=== PATIENT | male | born 1965 ===

== ENCOUNTER 2020-09-22 09:35 | Outpatient (REF) | payer MEDICAID, SELFPAY | END 2020-09-22 09:36 | disposition home or self-care (01) | LOC: HO.LAB 09:35 | PROVIDERS: PCP Nurse Practitioner Family; Visit Provider Internal Medicine | DX: Z20.822 Contact with and (suspected) exposure to COVID-19 (principal) | CPT/HCPCS: 36415; C9803; U0003 ==

== ENCOUNTER 2020-09-27 13:05 | Emergency (ER) | payer MEDICAID, SELFPAY ==
[2020-09-27] VITALS (7 sets, daily range): BP systolic 111–145; BP diastolic 51–89; PULSE 71–83; RESP 14–18; TEMP 36.7–36.8; O2SAT 96–97; BMI 47.9
--- NOTE | 2020-09-27 13:24 | ECG_ITS ---
Test Reason : CP Blood Pressure : / mmHG Vent. Rate : 080 BPM Atrial Rate : 080 BPM P-R Int : 198 ms QRS Dur : 088 ms QT Int : 388 ms P-R-T Axes : 040 034 047 degrees QTc Int : 447 ms Normal sinus rhythm Normal EKG No significant changes when compared with the previous EKG of 03 december 2018 Referred By: Gemma Ramirez Electronically Signed By:DRAKE ALANIS
--- NOTE | 2020-09-27 13:25 | ED_ITS ---
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 Saturday negative COVID-19 swab. 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 Related Data Allergies Allergy/AdvReac Type Severity Reaction Status Date / Time No Known Allergies Allergy Unverified 05/26/20 15:59 [No Known Allergies*] [facility] Past Medical History Attestation statement: The following information was validated with the patient. Medical History Asthma Hypertension Obesity Course Course Course Narrative: 13:29pm - RME done at this time. 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 Vitals stable. Labs, EKG, CXR ordered patient in no acute distress. Returned back to the waiting room.
--- NOTE | 2020-09-27 15:46 | CT_ITS ---
EXAMINATION: CT HEAD WITHOUT CONTRAST CLINICAL INFORMATION: Dizziness COMPARISON: None TECHNIQUE: Contiguous axial imaging was performed from the skull base to vertex without intravenous administration of contrast. This CT examination was performed using dose optimization techniques as appropriate, variously including the following: *Automated exposure control *Adjustment of mA and/or kV according to patient size (this includes techniques or standardized protocols for targeted exams where dose is matched to indication/reason for exam; i.e. extremities or head) *Use of iterative reconstruction technique DLP: 902 mGy-cm FINDINGS: There is no evidence of acute intracranial hemorrhage or territorial infarction. No abnormal mass effect or midline shift is seen. Shay to white matter differentiation is well preserved. No extra-axial fluid collections are identified. The ventricles are normal in size. There is no abnormal attenuation within the brain parenchyma. The osseous structures and soft tissues are normal. Extensive maxillary and ethmoidal sinus disease with mucosal thickening of the sphenoid sinus. The frontal sinuses and mastoid air cells are well aerated. CT/CT head/brain wo con IMPRESSION: 1. No acute intracranial pathology. 2. Extensive sinus disease.
[2020-09-27 15:58] LABS: MANUAL DIFF FLAG NO
[2020-09-27 15:59] LABS: Basophils Percent Auto 0.4 % (0-2); Eosinophils Absolute Auto 0.5 X10*3/uL (0.0-0.4); Eosinophils Percent Auto 6.3 % (0-4); Hematocrit 44.6 % (42-52); Hemoglobin 14.8 g/dl (14.0-18.0); Imm Gran Abs Auto 0.04 X10*3/uL (0.00-0.03); Imm Gran Pct Auto 0.5 % (0.0-0.4); Lymphocytes Absolute Auto 1.7 X10*3/uL (1.2-4.9); Mean Corpuscular HGB Conc 33.2 g/dl (31.0-36.0); Mean Corpuscular Hemoglobin 31.2 pg (27.0-33.0); Mean Corpuscular Volume 94.1 fL (80-98); Mean Platelet Volume 10.3 fL (9.4-12.4); Monocytes Absolute Auto 0.5 X10*3/uL (0.1-1.2); Monocytes Percent Auto 6.9 % (2-11); Neutrophils Absolute Auto 4.7 X10*3/uL (2.0-8.3); Neutrophils Percent Auto 62.9 % (45-73); Platelet Count 176 X10*3/uL (160-400); Red Blood Count 4.74 X10*6/uL (4.60-5.80); Red Cell Distribution Width 11.6 % (11.0-16.0); White Blood Count 7.4 X10*3/uL (4.8-10.8)
[2020-09-27 16:05] LABS: INTERNATIONAL NORM RATIO 1.1 (0.9-1.1); Prothrombin Time 13.5 SEC (10.8-13.0)
[2020-09-27 16:23] LABS: Alanine Aminotransferase 22 U/L (0-40); Albumin Level 4.3 g/dL (3.5-5.0); Alkaline Phosphatase 92 U/L (39-117); Anion Gap 13 (12-20); Aspartate Amino Transferase 23 U/L (5-37); Bilirubin Direct < 0.2 mg/dL (0.0-0.5); Bilirubin Total 0.3 mg/dL (0.0-1.0); Blood Urea Nitrogen 9 mg/dL (9-16); Carbon Dioxide 28 mmol/L (22-29); Chloride 101 mmol/L (96-108); Creatinine Clr Calc Pharmacy 144.3; Estimated Glomerular Filt Rate > 60; Glucose Random 144 mg/dL (60-115); Magnesium 2.1 mg/dL (1.6-2.6); Potassium 4.2 mmol/l (3.3-5.1); Sodium 138 mmol/L (135-145); Total Protein 7.1 g/dL (6.5-8.0)
[2020-09-27 16:27] LABS: B Type Natriuretic Peptide < 10 pg/mL (<100); Troponin-I High Sensitivity < 3.5 ng/L (<3.5-35.0)
--- NOTE | 2020-09-27 20:28 | CT_ITS ---
EXAMINATION: CT ANGIOGRAM OF THE CHEST WITH AND WITHOUT CONTRAST (CT PULMONARY ANGIOGRAM FOR PE) CLINICAL INFORMATION: Shortness of breath COMPARISON: CT chest 07/07/2018. Chest x-ray 12/03/2018 TECHNIQUE: Prior to contrast administration, noncontrast localization images were obtained. Subsequently, multidetector volumetric imaging was performed from the thoracic inlet to below the diaphragms following the administration of 65 mL Omnipaque 350 intravenous contrast. No contrast reaction reported Sagittal, coronal, and MIP oblique sagittal reformatted images were obtained on the CT workstation, uploaded to PACS, and reviewed. This CT examination was performed using dose optimization techniques as appropriate, variously including the following: *Automated exposure control *Adjustment of mA and/or kV according to patient size (this includes techniques or standardized protocols for targeted exams where dose is matched to indication/reason for exam; i.e. extremities or head) *Use of iterative reconstruction technique Total exam dose-length product 544 mGy-cm FINDINGS: QUALITY OF STUDY/CONTRAST BOLUS: Suboptimal. PULMONARY ARTERIES: There is limited opacification of the pulmonary arteries. No gross evidence of central pulmonary emboli THORACIC AORTA: No aneurysm or dissection. LUNG: No focal consolidation, nodules or masses. PLEURA: No pleural effusion or pneumothorax. MEDIASTINUM: Normal heart size. No pericardial effusion. No hilar or mediastinal lymphadenopathy. No evidence of septal bowing or right heart strain. CHEST WALL/AXILLA: No axillary or internal mammary lymphadenopathy. OSSEOUS STRUCTURES: No acute or suspicious osseous abnormality. UPPER ABDOMEN: Unremarkable. No reflux of contrast into the hepatic veins to suggest elevated right heart pressures. CT/CT angio chest PE protocol IMPRESSION: There is limited opacification of the pulmonary arteries. No gross evidence of central pulmonary emboli. No acute abnormality of chest. VTE: negative
--- NOTE | 2020-09-27 20:34 | ED.CHESTPAIN ---
HPI - Chest Pain General Chief Complaint: Chest Pain Stated Complaint: chest pain Time Seen by Provider: 09/27/20 13:18 Source: patient Mode of arrival: ambulatory Limitations: language barrier (french speaking ) History of Present Illness HPI narrative: Patient presents to the ED for near syncopal episode the included chest pain shortness of breath. Patient states around 11:00 he was sitting on the couch also he felt dizzy and felt like he was about to pass out. Patient states he noticed vision in both eyes turning black like they were closing and he was about to pass out. Patient states at the same time had mild chest pain and shortness of breath. Patient states this lasted for 5 minutes and then resolved. Patient denies ever actually losing consciousness. Patient denies slurred speech, loss of vision, paralysis of extremities, or loss of vision in 1 eye. MD complaint: chest pain Related Data Allergies Allergy/AdvReac Type Severity Reaction Status Date / Time No Known Allergies Allergy Unverified 05/26/20 15:59 [No Known Allergies*] Review of Systems Review of Systems: Yes all other systems are reviewed and are negative Constitutional: Constitutional: Reports as per HPI, Reports no additional constitutional complaints, Reports anorexia, Reports body ache(s) and Reports chills Eyes: Eyes: Reports as per HPI and Reports no additional eye complaints ENT: Reports system reviewed and no additional complaints, except as documented, Reports as per HPI and Reports dizziness Cardiovascular: Cardiovascular: Reports as per HPI, Reports no additional cardiovascular complaints, Reports chest pain (gone) and Reports dyspnea (gone) Respiratory: Respiratory: Reports as per HPI, Reports no additional respiratory complaints and Reports dyspnea (gone) Gastrointestinal: Gastrointestinal: Reports as per HPI and Reports no additional gastrointestinal complaints Genitourinary: Genitourinary: Reports no additional male genitourinary complaints and Reports as per HPI Musculoskeletal: Musculoskeletal: Reports no additional musculoskeletal complaints and Reports as per HPI Neurologic: Reports system reviewed and no additional complaints, except as documented, Reports as per HPI and Reports dizziness Psychiatric: Psychiatric: Reports no additional psychiatric complaints and Reports as per HPI ON LICENSE OF [facility] Past Medical History Medical History Asthma Hypertension Obesity Social History Social History Advance Directives: No Advance Directives Information Provided: Yes Physical Exam Vital Signs: Vital Signs: Last Vital Signs Temp 98.1 F 09/27/20 20:35 Pulse 80 09/27/20 22:34 Resp 18 09/27/20 22:00 BP 141/84 H 09/27/20 22:34 Pulse Ox 96 09/27/20 22:00 Body Mass Index 47.9 Const: General: cooperative, healthy appearing, comfortable, no acute distress, well developed, alert, awake and Physically active Orientation/consciousness: patient oriented x3 HENMT: Head: Yes normal to inspection, Yes No palpable skull fracture present, Yes normocephalic and Yes atraumatic Eyes: General: appearance normal, both eyes and all related structures Neck: Neck: Yes normal visual inspection, Yes full ROM, Yes no lymphadenopathy, Yes no meningeal signs, Yes trachea midline, Yes supple and No tender Chest: Chest palpation & inspection: normal inspection of the chest and normal palpation of entire chest wall Resp: Effort & Inspection: normal respiratory effort and able to speak in complete sentences Auscultation: clear to auscultation bilaterally Cardio: Jugular venous distension: no JVD Heart sounds: S1 normal heart sound present and S2 normal heart sound present GI: Inspection: Yes normal to inspection and No abdominal wall ecchymosis Palpation (GI): Soft to palpation, not firm, nontender, no guarding and not rigid : General: No CVA tenderness and Yes no CVA tenderness Back/Spine/Pelvis: Back: no CVA tenderness, No CVA tenderness and No back tenderness Skin: General skin exam: no rashes or lesions noted and elasticity normal Neuro: Other: Negative for facial droop. Negative for slurred speech. All extremities motor strength are intact and equal. Motor strength 5+. Negative pronator drift. Negative Romberg. Patient able to do [id number] test and rapid hand movement. Negative nystagmus General: patient oriented x3, gait normal, no meningeal signs and CN's II-XI intact bilaterally Cranial nerves: Yes CN's II-XII intact bilaterally Extrem: Other: Lower extremity negative for any swelling, pitting edema,or calf tenderness General: Yes normal to inspection and Yes full ROM Psych: Appearance: grossly normal, well kempt and not disheveled Course Course Course Narrative: Patient is a troponins negative. EKG negative for STEMI. Head CT negative for any signs of stroke. History and physical exam does not indicate stroke. Negative for any neuro deficit. History physical exam indicate near syncopal episode. Planus of the repeat troponin and send patient for chest CTA. Also orthostatics will be ordered Reevaluation(s) Reevaluation #1: Patient's 2nd troponin came back negative. Patient's chest CT negative for any central emboli. EKG negative for STEMI. Patient is safe for discharge. Orthostatics are negative Time: 22:14 MDM - Chest Pain MDM Narrative Medical decision making narrative: Near syncope Lab Data Result diagrams: 09/27/20 15:52 09/27/20 15:52 Labs: Lab Results 09/27/20 09/27/20 09/27/20 Range/Units 15:52 15:52 15:52 WBC 7.4 (4.8-10.8) X10*3/uL RBC 4.74 (4.60-5.80) X10*6/uL Hgb 14.8 (14.0-18.0) g/dl Hct 44.6 (42-52) % MCV 94.1 (80-98) fL MCH 31.2 (27.0-33.0) pg MCHC 33.2 (31.0-36.0) g/dl RDW 11.6 (11.0-16.0) % Plt Count 176 (160-400) X10*3/uL MPV 10.3 (9.4-12.4) fL Immature Gran % (Auto) 0.5 H (0.0-0.4) % Neut % (Auto) 62.9 (45-73) % Lymph % (Auto) 23.0 (20-40) % Winston % (Auto) 6.9 (2-11) % Eos % (Auto) 6.3 H (0-4) % Baso % (Auto) 0.4 (0-2) % Lymph # (Auto) 1.7 (1.2-4.9) X10*3/uL Winston # (Auto) 0.5 (0.1-1.2) X10*3/uL Eos # (Auto) 0.5 H (0.0-0.4) X10*3/uL Baso # (Auto) 0.0 (0.0-0.2) X10*3/uL Abs Immat Gran (auto) 0.04 H (0.00-0.03) X10*3/uL Absolute Neuts (auto) 4.7 (2.0-8.3) X10*3/uL Absolute Nucleated RBC 0.000 (0.0-0.012) X10*3/uL Nucleated RBC % (auto) 0.0 (0.0-0.2) /100WBC PT 13.5 H (10.8-13.0) SEC INR 1.1 (0.9-1.1) Sodium 138 (135-145) mmol/L Potassium 4.2 (3.3-5.1) mmol/l Chloride 101 (96-108) mmol/L Carbon Dioxide 28 (22-29) mmol/L Anion Gap 13 (12-20) BUN 9 (9-16) mg/dL Creatinine 0.68 (0.5-1.4) mg/dL Estim Creat Clear Calc 144.3 Estimated GFR > 60 Random Glucose 144 H (60-115) mg/dL Calcium 9.0 (8.4-10.2) mg/dL Magnesium 2.1 (1.6-2.6) mg/dL Total Bilirubin 0.3 (0.0-1.0) mg/dL Direct Bilirubin < 0.2 (0.0-0.5) mg/dL AST 23 (5-37) U/L ALT 22 (0-40) U/L Alkaline Phosphatase 92 (39-117) U/L Troponin I High Sens (<3.5-35.0) ng/L B-Natriuretic Peptide (<100) pg/mL Total Protein 7.1 (6.5-8.0) g/dL Albumin 4.3 (3.5-5.0) g/dL 09/27/20 09/27/20 Range/Units 15:52 20:27 WBC (4.8-10.8) X10*3/uL RBC (4.60-5.80) X10*6/uL Hgb (14.0-18.0) g/dl Hct (42-52) % MCV (80-98) fL MCH (27.0-33.0) pg MCHC (31.0-36.0) g/dl RDW (11.0-16.0) % Plt Count (160-400) X10*3/uL MPV (9.4-12.4) fL Immature Gran % (Auto) (0.0-0.4) % Neut % (Auto) (45-73) % Lymph % (Auto) (20-40) % Winston % (Auto) (2-11) % Eos % (Auto) (0-4) % Baso % (Auto) (0-2) % Lymph # (Auto) (1.2-4.9) X10*3/uL Winston # (Auto) (0.1-1.2) X10*3/uL Eos # (Auto) (0.0-0.4) X10*3/uL Baso # (Auto) (0.0-0.2) X10*3/uL Abs Immat Gran (auto) (0.00-0.03) X10*3/uL Absolute Neuts (auto) (2.0-8.3) X10*3/uL Absolute Nucleated RBC (0.0-0.012) X10*3/uL Nucleated RBC % (auto) (0.0-0.2) /100WBC PT (10.8-13.0) SEC INR (0.9-1.1) Sodium (135-145) mmol/L Potassium (3.3-5.1) mmol/l Chloride (96-108) mmol/L Carbon Dioxide (22-29) mmol/L Anion Gap (12-20) BUN (9-16) mg/dL Creatinine (0.5-1.4) mg/dL Estim Creat Clear Calc Estimated GFR Random Glucose (60-115) mg/dL Calcium (8.4-10.2) mg/dL Magnesium (1.6-2.6) mg/dL Total Bilirubin (0.0-1.0) mg/dL Direct Bilirubin (0.0-0.5) mg/dL AST (5-37) U/L ALT (0-40) U/L Alkaline Phosphatase (39-117) U/L Troponin I High Sens < 3.5 < 3.5 (<3.5-35.0) ng/L B-Natriuretic Peptide < 10 (<100) pg/mL Total Protein (6.5-8.0) g/dL Albumin (3.5-5.0) g/dL ECG Data ECG #1: Interpretation: Sinus rhythm with premature atrial complexes and bigeminy. Ventricular rate 66. Pr interval 152 QTC 473. Negative STEMI Discharge Plan Discharge Clinical Impression: Atypical chest pain, Near syncope Patient Disposition: Home, Self-Care Instructions: Chest Pain (ED), Near Syncope (ED) Additional Instructions: Return to the ED immediately for worsening chest pain, headache, slurred speech, loss of vision, paralysis, calf pain, swelling of lower extremities, coughing up blood, fever, chills, or any other concerning symptoms. Referrals: Maru Sierra NP [Primary Care Provider] - 2 days (Near syncope. Atypical chest pain. Troponins negative. EKG negative for Stemi. Chest CT negative for PE.) Interventions: ED Discharge Assessment Last Done: 09/27/20 23:04 Discharge Date/Time: 09/27/20 23:10 Print Language: [place]
[2020-09-27] MEDS: 0.9 % Sodium Chloride 1,000 ML 999 ML IV (20:47)
[2020-09-27 21:08] LABS: Troponin-I High Sensitivity < 3.5 ng/L (<3.5-35.0)
[2020-09-27] MEDS: iohexoL 350 MG/ML 100 ML INFUS..BTL IV (21:20)
== END 2020-09-27 23:10 | disposition home or self-care (01) ==
PROVIDERS: Physician Assistant; Physician Assistant Medical; Emergency Provider Student in an Organized Health Care Education/Training Program; PCP Nurse Practitioner Family
DX: R07.89 Other chest pain (principal); R55 Syncope and collapse; I10 Essential (primary) hypertension
CPT/HCPCS: 36415; 70450; 71275; 80048; 80076; 83735; 83880; 84484; 85025; 85610; 93005; 96360; 99284; Q9967

== ENCOUNTER 2020-09-28 10:22 | Outpatient (REF) | payer MEDICAID, SELFPAY | END 2020-09-28 10:23 | disposition home or self-care (01) | LOC: HO.LAB 10:22 | PROVIDERS: PCP Nurse Practitioner Family; Visit Provider Internal Medicine | DX: Z20.822 Contact with and (suspected) exposure to COVID-19 (principal) | CPT/HCPCS: 36415; C9803; U0003 ==

== ENCOUNTER 2020-10-19 08:54 | Outpatient (REF) | payer MEDICAID, SELFPAY ==
[2020-10-19 10:29] LABS: Estimated Average Glucose 108 mg/dL; Hematocrit 46.7 % (42-52); Hemoglobin 15.3 g/dl (14.0-18.0); Hemoglobin A1C 142.7911 umol/L; Hemoglobin A1c % 5.4 %; Mean Corpuscular HGB Conc 32.8 g/dl (31.0-36.0); Mean Corpuscular Hemoglobin 30.8 pg (27.0-33.0); Mean Platelet Volume 10.8 fL (9.4-12.4); Platelet Count 172 X10*3/uL (160-400); Red Blood Count 4.97 X10*6/uL (4.60-5.80); Red Cell Distribution Width 11.9 % (11.0-16.0); White Blood Count 6.6 X10*3/uL (4.8-10.8)
[2020-10-19 10:52] LABS: Alanine Aminotransferase 25 U/L (0-40); Albumin Level 4.3 g/dL (3.5-5.0); Alkaline Phosphatase 96 U/L (39-117); Anion Gap 11 (12-20); Aspartate Amino Transferase 23 U/L (5-37); Bilirubin Total 0.6 mg/dL (0.0-1.0); Blood Urea Nitrogen 12 mg/dL (9-16); Calcium 9.2 mg/dL (8.4-10.2); Carbon Dioxide 31 mmol/L (22-29); Chloride 103 mmol/L (96-108); Cholesterol 211 mg/dL; Estimated Glomerular Filt Rate > 60; Glucose Random 87 mg/dL (60-115); HDL Cholesterol 49 mg/dL; LDL Cholesterol Calculated 128 mg/dl; Potassium 4.4 mmol/L (3.3-5.1); Sodium 141 mmol/L (135-145); Total Protein 7.3 g/dL (6.5-8.0); Triglycerides 172 mg/dL
[2020-10-19 11:14] LABS: Vitamin D 25-OH Total 20.1 ng/mL (>30)
[2020-10-20 12:27] LABS: Alpha Fetoprotein 2.2 ng/mL (<6.1)
[2020-11-09 12:14] LABS: HepC Viral Load <15 NOT DETECTED
[2020-11-09 12:15] LABS: HCV Log PCR <1.18 NOT DETECTED
== END 2020-10-19 08:55 | disposition home or self-care (01) ==
LOC: HO.LAB 08:54
PROVIDERS: PCP Nurse Practitioner Family; Visit Provider Nurse Practitioner Family
DX: E78.00 Pure hypercholesterolemia, unspecified (principal); J44.9 Chronic obstructive pulmonary disease, unspecified; R06.00 Dyspnea, unspecified; R07.9 Chest pain, unspecified; K21.9 Gastro-esophageal reflux disease without esophagitis; Z12.5 Encounter for screening for malignant neoplasm of prostate; Z80.42 Family history of malignant neoplasm of prostate; Z86.19 Personal history of other infectious and parasitic diseases
CPT/HCPCS: 36415; 80053; 80061; 82105; 82306; 83036; 84153; 85027; 87522; 93005; 99202

== ENCOUNTER 2020-10-20 12:50 | Outpatient (REF) | payer MEDICAID, SELFPAY | END 2020-10-20 12:51 | disposition home or self-care (01) | LOC: HO.RESP 12:50 | PROVIDERS: PCP Nurse Practitioner Family; Visit Provider Nurse Practitioner Family | DX: J44.9 Chronic obstructive pulmonary disease, unspecified (principal) | CPT/HCPCS: 94060; 94727; 94729 ==

== ENCOUNTER → 2020-10-21 12:44 | Outpatient (REF) | payer MEDICAID, SELFPAY ==
--- NOTE | 2020-10-21 12:49 | CA_ITS ---
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 The visually estimated ejection fraction is between 55-60%. Diastolic function is normal for age. Right Ventricle Normal right ventricular cavity size and systolic function. Atria Both atria are normal in size. Interatrial shunt cannot be excluded. Aortic Valve The aortic valve structure and function is likely normal. There is no aortic valve stenosis. There is no aortic valve regurgitation. Mitral Valve Normal mitral valve structure and function. There is trace mitral valve regurgitation. There is no mitral valve stenosis. Pulmonic Valve The pulmonic valve was not well visualized. Tricuspid Valve Likely normal tricuspid valve structure and function. There is trace tricuspid valve regurgitation. The right ventricular systolic pressure is normal. The right ventricular systolic pressure is 20 mmHg. Normal right atrial pressure. There is no evidence of pulmonary hypertension. Great Vessels All visible segments of the aorta are normal in size. The pulmonary artery was not well visualized. Venous The inferior vena cava is normal in size and collapses greater than 50% with inspiration. Pericardium/Pleural There is no evidence of pericardial effusion. Prior Study Comparison No significant change compared to prior study dated: 12/30/2018. Measurements 2D Linear Measurements IVSd: 1.02 0.6-0.9/0.6-1.0 cm LVIDd: 5.38 3.9-5.3/4.2-5.9 cm LVIDd Index: 2.50 2.4-3.2/2.2-3.1 cm/m2 LVIDs: 3.78 2.0-3.6 cm LVPWd: 1.09 0.7-1.1 cm Ao Root: 3.70 2.1-3.5 cm LA Diam: 3.70 2.7-3.8/3.0-4.0 cm LAIDs Index: 1.72 1.5-2.3 cm/m2 LV Mass: 337.30 67-162/88-224 g LV Mass Index: 156.88 43-95/49-115 g/m2 LVOT Diam: 2.40 3.0+(-)1.3 cm 2D Systolic Function EF 4C: 60.90 >55% EF 2C: 47.10 >55% EF BiP: 55.60 >55% Mitral Valve MV Pk E: 0.60 MV PK A: 0.51 MV Decel Time: 187.00 E/A: 1.20 E'Lateral: 9.77 E'Medial: 8.22 E/E' Med: 7.30 E/E' Lat: 6.10 PHT: 55.00 MVA PHT: 4.00 Decel Karnes: 3.20 Aortic Valve AoV Pk Andrzej: 1.18 AoV Mn Andrzej: 0.75 AoV VTI: 0.26 AoV Pk Grad: 6.00 Aov Mn Grad: 3.00 CHEY Cont.VTI: 3.90 LVOT LVOT Pk Andrzej: 1.03 LVOT Mn Andrzej: 0.75 LVOT VTI: 0.23 LVOT Pk Grad: 4.00 LVOT Mn Grad: 3.00 LVOT Diam: 2.40 LVOT Area: 4.52 Diastolic Function MV Pk E: 0.60 MV Pk A: 0.51 E/A: 1.20 E'Medial: 8.22 E/E' Med: 7.30 E' Laterial: 9.77 E/E' Lat: 6.10 Tricuspid Valve TR Pk Andrzej: 2.05 TR Pk Grad: 17.00 RA Press: 3.00 RVSP: 20.00 Great Vessels Aorta Ao Root-2D: 3.70 2.0-3.7 cm Pulmonary Valve PV Pk Andrzej: 1.00 Peak PV Grad: 4.00 Updated in Other Vendor System with Status of Final Mehran Regalado MD electronically signed on 10/21/2020 4:20:00 PM with status of Final
== END ==
LOC: HO.CARD 12:44
PROVIDERS: Visit Provider Internal Medicine Cardiovascular Disease
DX: R06.00 Dyspnea, unspecified (principal)
CPT/HCPCS: 93306

== ENCOUNTER 2020-12-19 08:56 | Outpatient (REF) | payer MEDICAID, SELFPAY ==
[2020-12-19 09:39] LABS: COVID-19 Test Negative (Negative)
== END 2020-12-19 08:57 | disposition home or self-care (01) ==
LOC: HO.LAB 08:56
PROVIDERS: Visit Provider Internal Medicine
DX: Z20.822 Contact with and (suspected) exposure to COVID-19 (principal)
CPT/HCPCS: 36415; 87635; C9803

== ENCOUNTER 2020-12-23 07:59 | Outpatient (REF) | payer MEDICAID, SELFPAY ==
[2020-12-23 09:07] LABS: COVID-19 Test Positive (Negative); IDNOW Serial# 55D5AD1C
== END 2020-12-23 08:00 | disposition home or self-care (01) ==
LOC: HO.LAB 07:59
PROVIDERS: Visit Provider Internal Medicine
DX: Z20.822 Contact with and (suspected) exposure to COVID-19 (principal)
CPT/HCPCS: 36415; 87635; C9803

== ENCOUNTER 2021-01-09 13:47 | Outpatient (REF) | payer MEDICAID, SELFPAY ==
[2021-01-09 14:47] LABS: COVID-19 Test Negative (Negative)
== END 2021-01-09 13:48 | disposition home or self-care (01) ==
LOC: HO.LAB 13:47
PROVIDERS: Visit Provider Internal Medicine
DX: Z20.822 Contact with and (suspected) exposure to COVID-19 (principal)
CPT/HCPCS: 36415; 87635; C9803

== ENCOUNTER 2021-04-06 15:59 | Emergency (ER) | payer MEDICAID, SELFPAY ==
--- NOTE | ~2021-04-06 | CT_ITS ---
EXAMINATION: CT ABDOMEN AND PELVIS WITH CONTRAST CLINICAL INFORMATION: Right lower quadrant abdominal pain. Nausea and diarrhea. COMPARISON: None TECHNIQUE: Multidetector volumetric images were obtained from the superior aspect of the liver through the pubic symphysis following administration 85 mL of Omnipaque 350 intravenous contrast. Sagittal and coronal reformatted images were obtained on the technologist's workstation. Oral contrast: No This CT examination was performed using dose optimization techniques as appropriate, variously including the following: *Automated exposure control *Adjustment of mA and/or kV according to patient size (this includes techniques or standardized protocols for targeted exams where dose is matched to indication/reason for exam; i.e. extremities or head) *Use of iterative reconstruction technique DLP: 2074 mGy-cm FINDINGS: LUNG BASES: The visualized lung bases are unremarkable. LIVER, GALLBLADDER, AND BILIARY TREE: The liver is normal in size and shape with decreased attenuation. No focal hepatic lesion or biliary ductal dilatation is present. The gallbladder is unremarkable with no evidence of radiopaque gallstones, gallbladder wall thickening, or obvious pericholecystic inflammatory changes. PANCREAS: Unremarkable. SPLEEN: Unremarkable. ADRENAL GLANDS: Unremarkable. KIDNEYS AND URETERS: The kidneys are normal in size, shape, and attenuation. No hydronephrosis, hydroureter, or calculi seen. No perinephric stranding. Bilateral simple renal cysts. No follow-up imaging recommended. BLADDER: Unremarkable. GASTROINTESTINAL TRACT: Stomach is unremarkable. Normal caliber small bowel. No obstruction. Diffuse colonic diverticulosis. No diverticulitis. No wall thickening or inflammatory changes. No free air or free fluid. The appendix is unremarkable. ABDOMINAL WALL: No significant hernia is appreciated. LYMPH NODES: Normal. VASCULAR: Unremarkable. PELVIC VISCERA: The prostate and seminal vesicles are unremarkable. OSSEOUS STRUCTURES: No acute or suspicious osseous abnormality. Degenerative changes throughout the spine. CT/CT abdomen pelvis w con IMPRESSION: No acute findings in the abdomen or pelvis. Normal appendix. Colonic diverticulosis without diverticulitis. Hepatic steatosis.
[2021-04-06 16:10] VITALS: BP 120/73; PULSE 86; RESP 18; TEMP 36.6; O2SAT 96; BMI 47.8
[2021-04-06 17:36] VITALS: BP 133/78; PULSE 79; RESP 18; O2SAT 99
[2021-04-06 17:45] LABS: MANUAL DIFF FLAG NO
[2021-04-06 17:48] LABS: Basophils Percent Auto 0.5 % (0-2); Eosinophils Absolute Auto 0.5 X10*3/uL (0.0-0.4); Eosinophils Percent Auto 6.6 % (0-4); Hematocrit 43.9 % (42-52); Hemoglobin 14.6 g/dl (14.0-18.0); Imm Gran Abs Auto 0.03 X10*3/uL (0.00-0.03); Imm Gran Pct Auto 0.4 % (0.0-0.4); Mean Corpuscular HGB Conc 33.3 g/dl (31.0-36.0); Mean Corpuscular Hemoglobin 31.5 pg (27.0-33.0); Mean Corpuscular Volume 94.6 fL (80-98); Mean Platelet Volume 10.1 fL (9.4-12.4); Monocytes Absolute Auto 0.8 X10*3/uL (0.1-1.2); Monocytes Percent Auto 9.9 % (2-11); Neutrophils Absolute Auto 4.3 X10*3/uL (2.0-8.3); Neutrophils Percent Auto 56.6 % (45-73); Platelet Count 209 X10*3/uL (160-400); Red Blood Count 4.64 X10*6/uL (4.60-5.80); White Blood Count 7.6 X10*3/uL (4.8-10.8)
[2021-04-06 17:55] LABS: Glucose Urine UA NEG (NEG); Leukocyte Esterase Urine NEG (NEG); Nitrite Urine NEG (NEG); PH 6.5 (5.0-8.0); Urine Blood NEG (NEG); Urine Ketones NEG (NEG); Urine Protein NEG (NEG-TRACE)
[2021-04-06 17:58] LABS: Appearance Urine CLEAR; Color Urine YELLOW
[2021-04-06] MEDS: Ketorolac Tromethamine 15 MG/ML VIAL 30 MG IVPUSH (18:06)
[2021-04-06] MEDS: 0.9 % Sodium Chloride 1,000 ML 999 ML IVCONT (18:06)
[2021-04-06 18:18] LABS: Anion Gap 15 (12-20); Blood Urea Nitrogen 15 mg/dL (9-16); Calcium 9.7 mg/dL (8.4-10.2); Carbon Dioxide 24 mmol/L (22-29); Chloride 104 mmol/L (96-108); Creatinine Clr Calc Pharmacy 112.8; Estimated Glomerular Filt Rate > 60; Glucose Random 123 mg/dL (60-115); Potassium 4.3 mmol/L (3.3-5.1); Sodium 139 mmol/L (135-145)
[2021-04-06 18:25] LABS: Alanine Aminotransferase 25 U/L (0-40); Albumin Level 4.3 g/dL (3.5-5.0); Alkaline Phosphatase 108 U/L (39-117); Aspartate Amino Transferase 28 U/L (5-37); Bilirubin Direct 0.2 mg/dL (0.0-0.5); Bilirubin Total 0.4 mg/dL (0.0-1.0); Lipase 18 U/L (8-78); Total Protein 7.4 g/dL (6.5-8.0)
[2021-04-06] MEDS: iohexoL 350 MG/ML 100 ML INFUS..BTL IV (18:46)
--- NOTE | 2021-04-06 19:04 | ED_ITS ---
HPI - Abdominal Pain General Chief Complaint: Abdominal Pain Stated Complaint: leg pain Time Seen by Provider: 04/06/21 16:42 Source: patient Mode of arrival: ambulatory Limitations: no limitations History of Present Illness HPI narrative: 55-year-old male with a past medical history of GERD, asthma, hypertension obesity presenting to the ED with complaints of right lower quadrant abdominal pain with associated nausea since last night worse today. Denies any fevers, chills, vomiting, chest pain, shortness of breath, radiation of the abdominal pain, hematuria, dysuria, constipation, black or bloody stools, recent travel or sick contacts or any other symptoms complaints or concerns at this time. MD elicited complaint: abdominal pain Pertinent past history: none Onset (ago): day(s) (Since yesterday worse today) Pain Consistency: constant Location: RLQ Severity: severe Pain scale (0-10): 10 Quality: aching and sharp Radiation: none Migration to: no migration Exacerbating factors: nothing Relieving factors: nothing Associated symptoms: nausea Related Data Previous Rx's Medication Instructions Recorded omeprazole 20 mg capsule,delayed 20 mg PO BID #60 cap 10/19/20 release acetaminophen 500 mg tablet 1,000 mg PO QID PRN #14 tab 04/06/21 (Tylenol Extra Strength) amoxicillin 875 mg-potassium 1 tab PO BID 10 Days #20 tab 04/06/21 clavulanate 125 mg tablet (Augmentin) ibuprofen 800 mg tablet 800 mg PO Q8H PRN #14 tab 04/06/21 ondansetron HCl 4 mg tablet 4 mg PO Q8H PRN #14 tab 04/06/21 (Zofran) Allergies Allergy/AdvReac Type Severity Reaction Status Date / Time No Known Allergies Allergy Unverified 05/26/20 15:59 [No Known Allergies*] Review of Systems Review of Systems Constitutional : No Weight loss, No Fever, No Chills, No Night Sweats, No Fatigue, NoMalaise ENT/Mouth: No ear pain, No sore throat, No Difficulty swallowing Cardiovascular : No Chest Pain, No SOB, No Dyspnea on Exertion, No Orthopnea, NoEdema, No Palpitations Respiratory : No Cough, No Sputum, No Wheezing, No Dyspnea Gastrointestinal : Positive nausea and right lower quadrant abdominal pain, No Vomiting, No Diarrhea, No blood streaked emesis, No coffee-ground emesis, No gross hematemesis, No blood streak stool, No gross hematochezia, No Melena Genitourinary : No irregular bleeding, No Dysuria, No Urinary Frequency, No Hematuria,No Urinary Incontinence, No Urgency, No Flank Pain Musculoskeletal : No joint pain, No Myalgias, No Joint Swelling Skin : No Skin Lesions, No rash Neuro : No Weakness, No Numbness, No Paresthesias, No Loss of Consciousness, NoDizziness, No Headache Psych : No Social Issues, Heme/Lymph: No Bruising, No Bleeding,No Lymphadenopathy Endocrine : No Polyuria, No Polydipsia, No Temperature Intolerance Yes all other systems are reviewed and are negative Physical Exam Vital Signs: Vital Signs: Last Vital Signs Temp 97.8 F 04/06/21 16:10 Pulse 79 04/06/21 17:36 Resp 18 04/06/21 17:36 BP 133/78 04/06/21 17:36 Pulse Ox 99 04/06/21 17:36 Body Mass Index 47.8 vital signs have been reviewed as normal and appeared to be correct. Blood pressure normal. Heart rate normal. Respiration rate normal. Temperature normal. Oxygen saturation normal. Appearance: Alert. Oriented X3. No acute distress. Head: Normal external exam. Normocephalic. Eyes: PERRLA. EOMI. Conjunctiva and sclera normal. Eyelids normal. ENT: Pharynx normal. Uvula midline. Moist mucous membranes. Neck: Normal inspection. Neck supple. FROM. No adenopathy. No meningeal signs. CVS: Normal heart rate and rhythm. Heart sound normal. No murmurs noted. Pulses normal throughout. Respiratory: No respiratory distress. Painless inspiration. Breath sounds normal. No wheezes/rales/rhonchi noted. Chest nontender. No accessory muscle usage noted or decreased air movement noted. Abdomen: Soft and tenderness to palpation to right lower quadrant with guarding with rebound tenderness noted Nondistended. No rigidity. Bowel sounds normal in all 4 quadrants. No distention noted. No organomegaly noted. No visible injury noted. Negative Rovsing sign. Negative obturator's sign. Negative psoas sign. Negative Palmer sign. Back: Positive right CVA tenderness. No left CVA tenderness is noted. Full range of motion noted. Skin: Skin warm and dry. Normal skin color. Normal skin turgor. No rashes/lesions/lacerations noted. Extremities: Extremities exhibit normal range of motion. Extremities nontender. Neuro: Oriented X 3. No motor deficit. No sensory deficit. Reflexes normal. Normal steady gait. Course Course Course Narrative: 18pm - 55-year-old male presenting to the ED with complaints of right lower quadrant abdominal pain with associated nausea since last night worse this morning. - On exam patient is alert and oriented x3. Not in any acute distress. Lungs clear to auscultation. CV RRR. Right lower quadrant abdominal tenderness with rebound tenderness and guarding. Not consistent with acute abdomen. Positive right CVA tenderness is noted. Negative left CVA tenderness noted. Plan: Labs, UA, CT scan abdomen pelvis with IV contrast, provide a L of IV fluids, 4 mg of Zofran and 30 mg of Toradol and re-evaluate. Reevaluation(s) Reevaluation #1: - random glucose 123 otherwise all other labs are within normal limits. UA within normal limits no evidence of UTI. - pending CT scan of abdomen pelvis with IV contrast will re-evaluate. Time: 19:09 Reevaluation #2: - CT scan abdomen and pelvis with IV contrast revealed colonic diverticulosis without diverticulitis and hepatic steatosis otherwise no other acute processes are noted. He has a normal appendix. - therefore will DC home with antibiotics and symptomatic treatment instructions to follow-up with his PCP and pricing consultant. Patient understands agrees with this plan. Time: 19:37 [facility] - Abdominal Pain Medical Records Attestation: I reviewed the patient's medical records. Lab Data Attestation: I reviewed the patient's lab results. Result diagrams: 04/06/21 17:41 04/06/21 17:41 Labs: Lab Results 04/06/21 04/06/21 04/06/21 Range/Units 17:41 17:41 17:48 WBC 7.6 (4.8-10.8) X10*3/uL RBC 4.64 (4.60-5.80) X10*6/uL Hgb 14.6 (14.0-18.0) g/dl Hct 43.9 (42-52) % MCV 94.6 (80-98) fL MCH 31.5 (27.0-33.0) pg MCHC 33.3 (31.0-36.0) g/dl RDW 12.0 (11.0-16.0) % Plt Count 209 (160-400) X10*3/uL MPV 10.1 (9.4-12.4) fL Immature Gran % (Auto) 0.4 (0.0-0.4) % Neut % (Auto) 56.6 (45-73) % Lymph % (Auto) 26.0 (20-40) % [place] % (Auto) 9.9 (2-11) % Eos % (Auto) 6.6 H (0-4) % Baso % (Auto) 0.5 (0-2) % Lymph # (Auto) 2.0 (1.2-4.9) X10*3/uL [place] # (Auto) 0.8 (0.1-1.2) X10*3/uL Eos # (Auto) 0.5 H (0.0-0.4) X10*3/uL Baso # (Auto) 0.0 (0.0-0.2) X10*3/uL Abs Immat Gran (auto) 0.03 (0.00-0.03) X10*3/uL Absolute Neuts (auto) 4.3 (2.0-8.3) X10*3/uL Absolute Nucleated RBC 0.000 (0.0-0.012) X10*3/uL Nucleated RBC % (auto) 0.0 (0.0-0.2) /100WBC Sodium 139 (135-145) mmol/L Potassium 4.3 (3.3-5.1) mmol/L Chloride 104 (96-108) mmol/L Carbon Dioxide 24 (22-29) mmol/L Anion Gap 15 (12-20) BUN 15 (9-16) mg/dL Creatinine 0.89 (0.5-1.4) mg/dL Estim Creat Clear Calc 112.8 Estimated GFR > 60 Random Glucose 123 H D (60-115) mg/dL Calcium 9.7 (8.4-10.2) mg/dL Total Bilirubin 0.4 (0.0-1.0) mg/dL Direct Bilirubin 0.2 (0.0-0.5) mg/dL AST 28 (5-37) U/L ALT 25 (0-40) U/L Alkaline Phosphatase 108 (39-117) U/L Total Protein 7.4 (6.5-8.0) g/dL Albumin 4.3 (3.5-5.0) g/dL Lipase 18 (8-78) U/L Urine Color YELLOW Urine Appearance CLEAR Urine pH 6.5 (5.0-8.0) Ur Specific Street 1.020 (1.005-1.025) Urine Protein NEG (NEG-TRACE) MG/DL Urine Glucose (UA) NEG (NEG) MG/DL Urine Ketones NEG (NEG) MG/DL Urine Blood NEG (NEG) Urine Nitrite NEG (NEG) Ur Leukocyte Esterase NEG (NEG) Imaging Data CT scan abdomen pelvis with IV contrast: Attestation: I personally reviewed and interpreted this imaging study as follows: Radiologist's impression: FINDINGS: LUNG BASES: The visualized lung bases are unremarkable.? LIVER, GALLBLADDER, AND BILIARY TREE: The liver is normal in size and shape with decreased attenuation. No focal hepatic lesion or biliary ductal dilatation is present. The gallbladder is unremarkable with no evidence of radiopaque gallstones, gallbladder wall thickening, or obvious pericholecystic inflammatory changes.? PANCREAS: Unremarkable.? SPLEEN: Unremarkable.? ADRENAL GLANDS: Unremarkable.? KIDNEYS AND URETERS: The kidneys are normal in size, shape, and attenuation. No hydronephrosis, hydroureter, or calculi seen. No perinephric stranding. Bilateral simple renal cysts. No follow-up imaging recommended.? BLADDER: Unremarkable.? GASTROINTESTINAL TRACT: Stomach is unremarkable. Normal caliber small bowel. No obstruction. Diffuse colonic diverticulosis. No diverticulitis. No wall thickening or inflammatory changes. No free air or free fluid. The appendix is unremarkable.? ABDOMINAL WALL: No significant hernia is appreciated.? LYMPH NODES: Normal. VASCULAR: Unremarkable. PELVIC VISCERA: The prostate and seminal vesicles are unremarkable.? OSSEOUS STRUCTURES: No acute or suspicious osseous abnormality. Degenerative changes throughout the spine.? CT/CT abdomen pelvis w con IMPRESSION: No acute findings in the abdomen or pelvis. Normal appendix. Colonic diverticulosis without diverticulitis. ? Hepatic steatosis. Discharge Plan Discharge Clinical Impression: Colon, diverticulosis, Fatty liver Patient Disposition: Home, Self-Care Instructions: Diverticulosis (ED), Non-Alcoholic Fatty Liver Disease (ED) Prescriptions: New ibuprofen 800 mg tablet 800 mg PO Q8H PRN (Reason: pain) Qty: 14 RF: 0 ondansetron HCl [Zofran] 4 mg tablet 4 mg PO Q8H PRN (Reason: nausea and vomiting) Qty: 14 RF: 0 acetaminophen [Tylenol Extra Strength] 500 mg tablet 1,000 mg PO QID PRN (Reason: fever or pain) Qty: 14 RF: 0 amoxicillin-pot clavulanate [Augmentin] 875-125 mg tablet 1 tab PO BID 10 Days Qty: 20 RF: 0 No Action omeprazole 20 mg capsule,delayed release(DR/EC) 20 mg PO BID Qty: 60 RF: 0 Referrals: Maru Sierra NP [Primary Care Provider] - 2 days Vu Leon MD [Physician] - 2 days Stand Alone Forms: Work/School Release Print Language: Indonesian [facility] Past Medical History Attestation statement: The following information was validated with the patient. Medical History Asthma Hypertension Obesity Social History Social History Alcohol intake: never Advance Directives: No Advance Directives Information Provided: No
== END 2021-04-06 19:48 | disposition home or self-care (01) ==
PROVIDERS: Physician Assistant Medical; Emergency Provider Emergency Medicine Emergency Medical Services; PCP Nurse Practitioner Family
DX: R10.31 Right lower quadrant pain (principal); K57.30 Diverticulosis of large intestine without perforation or abscess without bleeding; K76.0 Fatty (change of) liver, not elsewhere classified; M79.605 Pain in left leg; M79.604 Pain in right leg; Z79.899 Other long term (current) drug therapy
CPT/HCPCS: 36415; 74177; 80048; 80076; 81003; 83690; 85025; 96365; 96375; 99284; J1885; J2405; Q9967

== ENCOUNTER 2021-04-27 07:57 | Emergency (ER) | payer MEDICAID, SELFPAY ==
--- NOTE | ~2021-04-27 | US_ITS ---
EXAMINATION: US SCROTUM CLINICAL INFORMATION: Testicular tenderness, left greater than right. COMPARISON: CT abdomen and pelvis with IV contrast 04/06/2021. TECHNIQUE: A sonogram of the scrotum was performed assessing resendiz-scale appearance and color Doppler flow. Spectral Doppler analysis of the arterial and venous flow were performed in the testes bilaterally. FINDINGS: There is heterogeneous mass with shadowing right inguinal ring and upper right hemiscrotum displacing the testicles to the contralateral left side. Finding is suggestive of inguinal hernia. The testicles are normal in size and smooth in contour and uniform in echogenicity. There is no intratesticular mass. Both testicles show normal parenchymal color flow with low resistance arterial waveforms and presence of venous flow. There is no torsion. Right testis measures 3.9 x 3.1 x 2.3 cm (volume 14.8 mL). Left testis measures 3.8 x 2.0 x 3.0 cm (volume 12.0 mL). There are trace bilateral hydrocele. There there is no varicocele. The left epididymal head has a small cyst under 1 cm. There is a small focal hyperechoic specular echo in the left epididymal tail which may represent a calcification. The right epididymis is not well visualized due to the probable inguinal hernia. US/US scrotum doppler IMPRESSION: 1. Heterogeneous mass with shadowing right inguinal ring and upper right hemiscrotum suggesting probable inguinal hernia, new or increased since CT pelvis 04/06/2021. 2. Normal bilateral testicles. No intratesticular mass or torsion. 3. Trace bilateral hydrocele. No varicocele. 4. Small left epididymal head cyst under 1 cm. Right epididymal head not well visualized due to the mass inguinal ring and upper hemiscrotum.
--- NOTE | ~2021-04-27 | CT_ITS ---
EXAMINATION: CT ABDOMEN AND PELVIS WITH CONTRAST CLINICAL INFORMATION: Worsening abdominal pain; recent history of acute diverticulitis. COMPARISON: CT abdomen and pelvis dated 04/06/2021. TECHNIQUE: Multidetector volumetric images were obtained from the superior aspect of the liver through the pubic symphysis following administration 85 mL of Omnipaque 350 intravenous contrast. Sagittal and coronal reformatted images were obtained on the technologist's workstation. Oral contrast: No This CT examination was performed using dose optimization techniques as appropriate, variously including the following: *Automated exposure control *Adjustment of mA and/or kV according to patient size (this includes techniques or standardized protocols for targeted exams where dose is matched to indication/reason for exam; i.e. extremities or head) *Use of iterative reconstruction technique DLP: 1847 mGy-cm FINDINGS: LUNG BASES: The visualized lung bases are unremarkable. LIVER, GALLBLADDER, AND BILIARY TREE: The liver is normal in size, shape, and mildly diminished in attenuation. No focal hepatic lesion or biliary ductal dilatation is present. There is a tiny, 3 mm dependent gallstone, without gallbladder wall thickening or obvious pericholecystic inflammatory change (7:198). PANCREAS: Unremarkable. SPLEEN: There is mild splenomegaly, with a longitudinal span in the coronal plane of 13.5 cm (8:72). No focal finding. ADRENAL GLANDS: Unremarkable. KIDNEYS AND URETERS: The kidneys are normal in size, shape, and attenuation. No hydronephrosis, hydroureter, or calculi seen. There are low-attenuation bilateral renal cysts. No perinephric stranding. BLADDER: Unremarkable. GASTROINTESTINAL TRACT: There is mild diverticulosis, without acute diverticulitis. No bowel obstruction, free intraperitoneal air or abscess is seen. No focal bowel wall thickening is seen. The vermiform appendix appears normal. ABDOMINAL WALL: There is a small fat-containing umbilical hernia. LYMPH NODES: Normal. VASCULAR: Unremarkable. PELVIC VISCERA: The prostate and seminal vesicles are unremarkable. OSSEOUS STRUCTURES: There is multi-level lower thoracic and lumbar degenerative disc disease, spondylosis and Schmorl's node formation. There is a vacuum disc phenomenon at L5-S1. No acute or aggressive osseous abnormality is seen. CT/CT abdomen pelvis w con IMPRESSION: 1. There is mild diverticulosis, without acute diverticulitis. No bowel obstruction, free intraperitoneal air or abscess is seen. There is no focal bowel wall thickening. The vermiform appendix appears normal. 2. No urinary calculus or obstructive uropathy is seen bilaterally. 3. There is no abdominopelvic mass, free fluid or lymphadenopathy. 4. There is mild hepatic steatosis. 5. There are multi-level degenerative changes of the thoracolumbar spine.
--- NOTE | 2021-04-27 08:00 | ECG_ITS ---
Test Reason : CHEST PAIN Blood Pressure : / mmHG Vent. Rate : 082 BPM Atrial Rate : 082 BPM P-R Int : 186 ms QRS Dur : 082 ms QT Int : 390 ms P-R-T Axes : 049 037 054 degrees QTc Int : 455 ms Normal sinus rhythm Normal ECG When compared with ECG of 27-SEP-2020 15:45, No significant change was found Referred By: Arlene Biggs Electronically Signed By:KRISTI PAIGE
[2021-04-27 10:27] VITALS: BP 140/86; PULSE 68; RESP 12; TEMP 36.8; O2SAT 97
[2021-04-27 10:33] VITALS: BP 143/84; PULSE 88; RESP 20; TEMP 36.6; O2SAT 96; BMI 46.9
--- NOTE | 2021-04-27 11:40 | ED.GENADULT ---
HPI - General Adult General Chief complaint: General Medical Stated complaint: Chest pain, Multiple complaints Time Seen by Provider: 04/27/21 11:07 Source: patient Mode of arrival: ambulatory Limitations: language barrier History of Present Illness HPI narrative: 55-year-old male with a history of diverticulitis presents for 2 days of abdominal pain, left side worse than right. The pain is 4/10 and is a constant pressure. has had diarrhea and nausea, no vomiting. No dark tarry or bloody stools. No fevers. In addition, patient has 6/10 chest pain that has been constant and feels like pressure in his left chest that started 8 hours ago. . No SOB, pt is not vaccinated for Covid. Patient has a yolk spray drier that he saw a year ago, reports he had a cardiac catheterization for 5 years ago, with no stones. Patient is obese, has high blood pressure, no history of heart disease, is not a smoker, reports no hyperlipidemia. In addition, patient has had left testicle pain for the last 2 weeks. Patient was seen took 29 for diverticulitis and treated with antibiotics. Patient states his belly pain resolves, and then returned 2 days ago. His PCP prescribed him Cipro Floxin, Flagyl, and Bentyl. He has been taking these for the last 2 days but his belly pain is no better. Related Data Previous Rx's Medication Instructions Recorded omeprazole 20 mg capsule,delayed 20 mg PO BID #60 cap 10/19/20 release acetaminophen 500 mg tablet 1,000 mg PO QID PRN #14 tab 04/06/21 (Tylenol Extra Strength) amoxicillin 875 mg-potassium 1 tab PO BID 10 Days #20 tab 04/06/21 clavulanate 125 mg tablet (Augmentin) ibuprofen 800 mg tablet 800 mg PO Q8H PRN #14 tab 04/06/21 ondansetron HCl 4 mg tablet 4 mg PO Q8H PRN #14 tab 04/06/21 (Zofran) Allergies Allergy/AdvReac Type Severity Reaction Status Date / Time No Known Allergies Allergy Unverified 05/26/20 15:59 [No Known Allergies*] Review of Systems Constitutional: Constitutional: Denies body ache(s), Denies chills, Denies fatigue, Denies fever(s), Denies headache(s), Denies malaise and Denies weakness Eyes: Eyes: Denies diplopia ENT: Denies vertigo, Denies dizziness, Denies otalgia, Denies headache(s), Denies mouth pain, Denies post nasal drip, Denies sinus pain, Denies sinus pressure, Denies sore throat and Denies throat swelling Cardiovascular: Cardiovascular: Reports chest pain, Denies syncope, Denies leg edema, Denies lightheadedness, Denies Loss of Consciousness, Denies palpitations and Denies dyspnea Respiratory: Respiratory: Denies chest congestion, Denies cough and Denies dyspnea Gastrointestinal: Gastrointestinal: Reports abdominal pain, Denies hematochezia, Denies coffee ground emesis, Denies constipation, Denies fecal incontinence, Reports diarrhea, Reports nausea, Denies vomiting and Denies hematemesis Genitourinary: Genitourinary: Denies hematuria, Denies oliguria, Denies genital lesions, Denies dysuria, Denies flank pain, Denies penile discharge, Denies scrotal swelling, Denies testicular mass, Reports testicular pain, Denies urinary frequency, Denies urinary hesitancy, Denies urinary incontinence and Denies urinary urgency Musculoskeletal: Musculoskeletal: Reports no additional musculoskeletal complaints Integumentary/Breasts: Skin/Breast: Denies erythema and Denies rash Neurologic: Denies confusion, Denies vertigo, Denies dizziness, Denies syncope, Denies headache(s) and Denies weakness Psychiatric: Psychiatric: Denies anxiety, Denies confusion and Denies depression Endocrine: Endocrine: Denies fatigue and Denies palpitations Allergic/Immunologic: Allergic/Immunologic: Denies throat swelling PMFSH Past Medical History Medical History Asthma Hypertension Obesity Social History Social History Alcohol intake: never Patient Tobacco Use Status: Never used Tobacco Use of substances other than those prescribed or required for medical reasons: No Advance Directives: Yes Advance Directives Information Provided: Yes Advance Directives on File: No Physical Exam Vital Signs: Vital Signs: Last Vital Signs Temp 97.7 F 04/27/21 13:34 Pulse 76 04/27/21 13:34 Resp 17 04/27/21 13:34 BP 124/83 04/27/21 13:34 Pulse Ox 95 04/27/21 13:34 Body Mass Index 46.9 Const: General: alert and awake; No confusion Nutritional Appearance: obese Orientation/consciousness: patient oriented x3 and No confusion Limitations: no limitations HENMT: Head: Yes normal to inspection, Yes normocephalic and Yes atraumatic Ears: hearing grossly normal bilaterally General nose exam: Normal external nose present Face and sinus: Yes normal facial exam Mouth: Normal oral and palatal mucosa present Throat: Yes posterior oropharynx normal Eyes: Conjunctivae: conjunctivae normal Pupils: Equal, round and reactive pupils present EOM: EOMs intact bilaterally Neck: Neck: Yes full ROM, Yes no lymphadenopathy and Yes supple Resp: Effort & Inspection: normal respiratory effort and able to speak in complete sentences Auscultation: clear to auscultation bilaterally, no crackles, no rales, no rhonchi and no wheezes Cardio: Rate: tachycardic (103) Rhythm: regular rhythm Heart sounds: S1 normal heart sound present and S2 normal heart sound present GI: Inspection: Yes obesity Palpation (GI): Soft to palpation, Tenderness to palpation present (GI), Guarding due to palpation present (GI) and not rigid Percussion: Yes normal to percussion Auscultation: normal bowel sounds : General: Yes no CVA tenderness Penis: normal penis, circumcised, no ecchymosis, not edematous, not erythematous, no nodules, no papules, no pustules and no vesicles Meatus: meatus normal and No Blood at meatus present Scrotum: scrotum normal, no ecchymosis, not edematous and not erythematous Testes: testicular lie normal and testicular tenderness on the left Back/Spine/Pelvis: Back: no CVA tenderness Skin: General skin exam: no rashes or lesions noted Neuro: General: patient oriented x3 and No confusion Cranial nerves: Yes Equal, round and reactive pupils present Extrem: General: Yes normal to inspection and Yes full ROM Psych: Appearance: grossly normal Affect: normal affect Attitude: cooperative Thought process: Normal thought process present Course Course Course Narrative: 55-year-old male who has been on multiple antibiotics recently, presents for left-sided abdominal pain, diarrhea, chest pain, and left-sided testicular pain. Labs are unremarkable, lipase is 18, urine is negative, COVID is negative. Ultrasound shows right inguinal hernia with a small left epididymal cyst. Troponin is less than 3.5 with over 8 hours of constant chest pain. EKG shows normal sinus at a rate of 76, no ST elevations or depressions. CT scan shows 1. There is mild diverticulosis, without acute diverticulitis. No bowel obstruction, free intraperitoneal air or abscess is seen. There is no focal bowel wall thickening. The vermiform appendix appears normal. ? 2. No urinary calculus or obstructive uropathy is seen bilaterally. ? 3. There is no abdominopelvic mass, free fluid or lymphadenopathy. ? 4. There is mild hepatic steatosis. ? 5. There are multi-level degenerative changes of the thoracolumbar spine. Will send patient home with stool collection kit for stool cultures and C diff. Will have patient follow-up with general surgery for right inguinal hernia Medical Decision Making Lab Data Result diagrams: 04/27/21 12:53 04/27/21 12:53 Labs: Lab Results 04/27/21 04/27/21 04/27/21 Range/Units 12:53 12:53 12:53 WBC 6.8 (4.8-10.8) X10*3/uL RBC 4.63 (4.60-5.80) X10*6/uL Hgb 14.8 (14.0-18.0) g/dl Hct 43.7 (42-52) % MCV 94.4 (80-98) fL MCH 32.0 (27.0-33.0) pg MCHC 33.9 (31.0-36.0) g/dl RDW 11.9 (11.0-16.0) % Plt Count 166 (160-400) X10*3/uL MPV 9.8 (9.4-12.4) fL Immature Gran % (Auto) 0.4 (0.0-0.4) % Neut % (Auto) 64.8 (45-73) % Lymph % (Auto) 18.6 L (20-40) % [place] % (Auto) 8.9 (2-11) % Eos % (Auto) 6.7 H (0-4) % Baso % (Auto) 0.6 (0-2) % Lymph # (Auto) 1.3 (1.2-4.9) X10*3/uL [place] # (Auto) 0.6 (0.1-1.2) X10*3/uL Eos # (Auto) 0.5 H (0.0-0.4) X10*3/uL Baso # (Auto) 0.0 (0.0-0.2) X10*3/uL Abs Immat Gran (auto) 0.03 (0.00-0.03) X10*3/uL Absolute Neuts (auto) 4.4 (2.0-8.3) X10*3/uL Absolute Nucleated RBC 0.000 (0.0-0.012) X10*3/uL Nucleated RBC % (auto) 0.0 (0.0-0.2) /100WBC Sodium 139 (135-145) mmol/L Potassium 4.0 (3.3-5.1) mmol/L Chloride 103 (96-108) mmol/L Carbon Dioxide 28 (22-29) mmol/L Anion Gap 12 (12-20) BUN 10 (9-16) mg/dL Creatinine 0.66 (0.5-1.4) mg/dL Estim Creat Clear Calc 150.5 Estimated GFR > 60 Random Glucose 87 (60-115) mg/dL Calcium 9.6 (8.4-10.2) mg/dL Total Bilirubin 0.6 (0.0-1.0) mg/dL AST 34 (5-37) U/L ALT 35 (0-40) U/L Alkaline Phosphatase 90 (39-117) U/L Troponin I High Sens < 3.5 (<3.5-35.0) ng/L Total Protein 7.2 (6.5-8.0) g/dL Albumin 4.4 (3.5-5.0) g/dL Lipase 18 (8-78) U/L Urine Color Urine Appearance Urine pH (5.0-8.0) Ur Specific [place] (1.005-1.025) Urine Protein (NEG-TRACE) MG/DL Urine Glucose (UA) (NEG) MG/DL Urine Ketones (NEG) MG/DL Urine Blood (NEG) Urine Nitrite (NEG) Ur Leukocyte Esterase (NEG) Coronavirus (PCR) (Negative) Influenza Type A (PCR) (Negative) Influenza Type B (PCR) (Negative) RSV RNA Qual (PCR) (Negative) 08/19/21 08/19/21 Range/Units 13:00 13:00 WBC (4.8-10.8) X10*3/uL RBC (4.60-5.80) X10*6/uL Hgb (14.0-18.0) g/dl Hct (42-52) % MCV (80-98) fL MCH (27.0-33.0) pg MCHC (31.0-36.0) g/dl RDW (11.0-16.0) % Plt Count (160-400) X10*3/uL MPV (9.4-12.4) fL Immature Gran % (Auto) (0.0-0.4) % Neut % (Auto) (45-73) % Lymph % (Auto) (20-40) % [place] % (Auto) (2-11) % Eos % (Auto) (0-4) % Baso % (Auto) (0-2) % Lymph # (Auto) (1.2-4.9) X10*3/uL [place] # (Auto) (0.1-1.2) X10*3/uL Eos # (Auto) (0.0-0.4) X10*3/uL Baso # (Auto) (0.0-0.2) X10*3/uL Abs Immat Gran (auto) (0.00-0.03) X10*3/uL Absolute Neuts (auto) (2.0-8.3) X10*3/uL Absolute Nucleated RBC (0.0-0.012) X10*3/uL Nucleated RBC % (auto) (0.0-0.2) /100WBC Sodium (135-145) mmol/L Potassium (3.3-5.1) mmol/L Chloride (96-108) mmol/L Carbon Dioxide (22-29) mmol/L Anion Gap (12-20) BUN (9-16) mg/dL Creatinine (0.5-1.4) mg/dL Estim Creat Clear Calc Estimated GFR Random Glucose (60-115) mg/dL Calcium (8.4-10.2) mg/dL Total Bilirubin (0.0-1.0) mg/dL AST (5-37) U/L ALT (0-40) U/L Alkaline Phosphatase (39-117) U/L Troponin I High Sens (<3.5-35.0) ng/L Total Protein (6.5-8.0) g/dL Albumin (3.5-5.0) g/dL Lipase (8-78) U/L Urine Color YELLOW Urine Appearance HAZY Urine pH 7.0 (5.0-8.0) Ur Specific [place] 1.020 (1.005-1.025) Urine Protein NEG (NEG-TRACE) MG/DL Urine Glucose (UA) NEG (NEG) MG/DL Urine Ketones NEG (NEG) MG/DL Urine Blood NEG (NEG) Urine Nitrite NEG (NEG) Ur Leukocyte Esterase NEG (NEG) Coronavirus (PCR) NEGATIVE (Negative) Influenza Type A (PCR) NEGATIVE (Negative) Influenza Type B (PCR) NEGATIVE (Negative) RSV RNA Qual (PCR) NEGATIVE (Negative) ECG Data Interpretation: EKG shows sinus rhythm at 76 beats per minute. Normal axis. NJ interval 190, QRS 88, QTC 461. No ST elevations or depressions, no T-wave changes. Discharge Plan Discharge Clinical Impression: Inguinal hernia of right side without obstruction or gangrene Diarrhea Qualifiers: Diarrhea type: unspecified type Qualified Code(s): R19.7 - Diarrhea, unspecified Patient Disposition: Home, Self-Care Instructions: Inguinal Hernia (ED), Acute Diarrhea (ED) Additional Instructions: Please collect your stool and bring it to the lab at the hospital. The orders are already in the computer. Please call general surgery, I have referred you to Dr Adams, . I would also like you to call him tomorrow morning. You have an inguinal hernia, this may need surgical repair. The hernia could be contributing to your abdominal pain. Your CT scan did not show any diverticulitis. If you have worsening abdominal pain, nausea, vomiting, fevers, please return to the emergency room. There is no bowel that is stuck inside of your hernia, but if that happens, it is an emergency you should return to the emergency room. The symptoms will include severe pain. Your EKG and cardiac labs were normal. I think you are having some reflux from all the antibiotics. Please call your primary care provider before you stop your antibiotic. Recoja michael heces y ll?audrey al laboratorio del hospital. Los pedidos ya est?n en la computadora. Por favor llame a cirug?a general, lo he referido al Dr. Adams, . Tambi?n me gustar?a que lo llamaras ma?destinee por la ma?destinee. Tiene tayla hernia inguinal, es posible que necesite reparaci?n quir?rgica. La hernia podr?a estar contribuyendo a arora dolor abdominal. Arora tomograf?a computarizada no mostr? diverticulitis. Si tiene un dolor abdominal que empeora, n?useas, v?mitos, fiebre, regrese a la bri de emergencias. No hay intestino atascado dentro de arora hernia, jaida si eso sucede, es tayla emergencia, debe regresar a la bri de emergencias. Los s?ntomas incluir?n dolor jeison. Arora ECG y los an?lisis card?acos fueron normales. Creo que est? teniendo reflujo debido a todos los antibi?ticos. Llame a arora proveedor de atenci?n primaria antes de dejar de shalonda antibi?ticos. Prescriptions: No Action ibuprofen 800 mg tablet 800 mg PO Q8H PRN (Reason: pain) Qty: 14 RF: 0 ondansetron HCl [Zofran] 4 mg tablet 4 mg PO Q8H PRN (Reason: nausea and vomiting) Qty: 14 RF: 0 acetaminophen [Tylenol Extra Strength] 500 mg tablet 1,000 mg PO QID PRN (Reason: fever or pain) Qty: 14 RF: 0 amoxicillin-pot clavulanate [Augmentin] 875-125 mg tablet 1 tab PO BID 10 Days Qty: 20 RF: 0 omeprazole 20 mg capsule,delayed release(DR/EC) 20 mg PO BID Qty: 60 RF: 0 Referrals: Tirso Adams MD [Physician] - 2 days (right inguinal hernia, abdominal pain) Print Language: Chilean
--- NOTE | 2021-04-27 11:42 | ECG_ITS ---
Test Reason : CHEST PAIN Blood Pressure : / mmHG Vent. Rate : 076 BPM Atrial Rate : 076 BPM P-R Int : 190 ms QRS Dur : 088 ms QT Int : 410 ms P-R-T Axes : 014 021 011 degrees QTc Int : 461 ms Normal sinus rhythm Normal ECG When compared with ECG of 27-APR-2021 08:04, No significant change was found Referred By: Arlene Biggs Electronically Signed By:KRISTI PAIGE
--- NOTE | 2021-04-27 12:17 | PC.NURSE ---
pt difficult stick, will attempt iv after arms warmed with blankets, pt to US
[2021-04-27 12:58] LABS: MANUAL DIFF FLAG NO
[2021-04-27 12:59] LABS: Basophils Percent Auto 0.6 % (0-2); Eosinophils Absolute Auto 0.5 X10*3/uL (0.0-0.4); Eosinophils Percent Auto 6.7 % (0-4); Hematocrit 43.7 % (42-52); Hemoglobin 14.8 g/dl (14.0-18.0); Imm Gran Abs Auto 0.03 X10*3/uL (0.00-0.03); Imm Gran Pct Auto 0.4 % (0.0-0.4); Lymphocytes Absolute Auto 1.3 X10*3/uL (1.2-4.9); Lymphocytes Percent Auto 18.6 % (20-40); Mean Corpuscular HGB Conc 33.9 g/dl (31.0-36.0); Mean Corpuscular Volume 94.4 fL (80-98); Mean Platelet Volume 9.8 fL (9.4-12.4); Monocytes Absolute Auto 0.6 X10*3/uL (0.1-1.2); Monocytes Percent Auto 8.9 % (2-11); Neutrophils Absolute Auto 4.4 X10*3/uL (2.0-8.3); Neutrophils Percent Auto 64.8 % (45-73); Platelet Count 166 X10*3/uL (160-400); Red Blood Count 4.63 X10*6/uL (4.60-5.80); Red Cell Distribution Width 11.9 % (11.0-16.0); White Blood Count 6.8 X10*3/uL (4.8-10.8)
[2021-04-27 13:07] LABS: Glucose Urine UA NEG (NEG); Leukocyte Esterase Urine NEG (NEG); Nitrite Urine NEG (NEG); Urine Blood NEG (NEG); Urine Ketones NEG (NEG); Urine Protein NEG (NEG-TRACE)
[2021-04-27 13:09] LABS: Appearance Urine HAZY; Color Urine YELLOW
[2021-04-27] MEDS: Morphine Sulfate 4 MG/ML CARTRIDGE IVPUSH (13:29)
[2021-04-27] MEDS: 0.9 % Sodium Chloride 1,000 ML 999 ML IV (13:29)
[2021-04-27] MEDS: ondansetron HCL 4 MG/2 ML VIAL IVPUSH (13:29)
[2021-04-27 13:34] VITALS: BP 124/83; PULSE 76; RESP 17; TEMP 36.5; O2SAT 95
[2021-04-27 13:34] LABS: Alanine Aminotransferase 35 U/L (0-40); Albumin Level 4.4 g/dL (3.5-5.0); Alkaline Phosphatase 90 U/L (39-117); Anion Gap 12 (12-20); Aspartate Amino Transferase 34 U/L (5-37); Bilirubin Total 0.6 mg/dL (0.0-1.0); Blood Urea Nitrogen 10 mg/dL (9-16); Calcium 9.6 mg/dL (8.4-10.2); Carbon Dioxide 28 mmol/L (22-29); Chloride 103 mmol/L (96-108); Creatinine Clr Calc Pharmacy 150.5; Estimated Glomerular Filt Rate > 60; Glucose Random 87 mg/dL (60-115); Lipase 18 U/L (8-78); Sodium 139 mmol/L (135-145); Total Protein 7.2 g/dL (6.5-8.0)
--- NOTE | 2021-04-27 13:36 | PC.NURSE ---
iv inserted, labs drawn, urine obtained, pt medicated per order, will continue to monitor.
[2021-04-27 13:38] LABS: Troponin-I High Sensitivity < 3.5 ng/L (<3.5-35.0)
[2021-04-27 14:03] LABS: Influenza A PCR NEGATIVE (Negative); Influenza B PCR NEGATIVE (Negative); Resp Syncy Virus RNA Qual PCR NEGATIVE (Negative); SARS COV2 PCR INHOUSE NEGATIVE (Negative)
--- NOTE | 2021-04-27 14:39 | PC.NURSE ---
PT TO CT SCAN
--- NOTE | 2021-04-27 14:43 | PC.NURSE ---
pt returned from ct scan
[2021-04-27] MEDS: iohexoL 350 MG/ML 100 ML INFUS..BTL IV (14:48)
[2021-04-27 16:00] VITALS: BP 140/77; PULSE 74; RESP 18; TEMP 36.8; O2SAT 98
[2021-04-27] MEDS: Magnesium Hydrox/Alum Hydrox 30 ML ORAL.SUSP PO (17:12)
[2021-04-27] MEDS: PHENobarb/Hyoscy/Atropine/Scop 10 ML ELIXIR PO (17:13)
[2021-04-27] MEDS: Lidocaine HCl Viscous 2 % 15 ML SOLUTION MUCOUS MEM (17:13)
--- NOTE | 2021-04-27 17:14 | PC.NURSE ---
patient medicated per order
== END 2021-04-27 18:25 | disposition home or self-care (01) ==
PROVIDERS: Physician Assistant; Emergency Provider Internal Medicine; PCP Nurse Practitioner Family
DX: K40.90 Unilateral inguinal hernia, without obstruction or gangrene, not specified as recurrent (principal); R19.7 Diarrhea, unspecified; N50.812 Left testicular pain; R10.9 Unspecified abdominal pain; I10 Essential (primary) hypertension; Z20.822 Contact with and (suspected) exposure to COVID-19
CPT/HCPCS: 0241U; 36415; 74177; 76870; 80053; 81003; 83690; 84484; 85025; 93005; 93975; 96361; 96374; 96375; 99284; 99285; J2270; J2405; Q9967

== ENCOUNTER → 2021-05-19 10:05 | Outpatient (BNVA) | payer MEDICAID, SELFPAY | PROVIDERS: PCP Internal Medicine; Visit Provider Surgery | DX: R10.32 Left lower quadrant pain (principal) | CPT/HCPCS: 99202 ==

== ENCOUNTER 2021-05-25 11:35 | Emergency (ER) | payer MEDICAID, SELFPAY ==
--- NOTE | ~2021-05-25 | CT_ITS ---
EXAMINATION: CT ABDOMEN AND PELVIS WITH CONTRAST CLINICAL INFORMATION: Left-sided abdominal pain COMPARISON: Ultrasound scrotum 04/27/2021, CT abdomen and pelvis 04/27/2021, 04/06/2021 TECHNIQUE: Multidetector volumetric images were obtained from the superior aspect of the liver through the pubic symphysis following administration 85 mL of Omnipaque 350 intravenous contrast. Sagittal and coronal reformatted images were obtained on the technologist's workstation. Oral contrast: No This CT examination was performed using dose optimization techniques as appropriate, variously including the following: *Automated exposure control *Adjustment of mA and/or kV according to patient size (this includes techniques or standardized protocols for targeted exams where dose is matched to indication/reason for exam; i.e. extremities or head) *Use of iterative reconstruction technique DLP: 968 mGy-cm FINDINGS: LUNG BASES: The visualized lung bases are unremarkable. LIVER, GALLBLADDER, AND BILIARY TREE: The liver is normal in size and smooth in contour. There is diffuse hepatic steatosis. No focal hepatic parenchymal lesion or intrahepatic ductal dilatation is present. The gallbladder has a punctate calculus under 4 mm. There is no gallbladder dilatation or wall thickening or pericholecystic inflammatory changes. Common duct unremarkable. PANCREAS: Unremarkable. SPLEEN: The spleen is mildly enlarged measuring 13.7 cm vertical dimension similar to prior exam. There is a tiny splenule again suggested left upper quadrant. ADRENAL GLANDS: Unremarkable. KIDNEYS AND URETERS: The kidneys are normal in size and enhance symmetrically. There is no hydronephrosis, hydroureter, calculi, or perinephric stranding. Stable bilateral renal cysts are present. BLADDER: Unremarkable. GASTROINTESTINAL TRACT: There is no bowel obstruction or focal inflammatory changes in the bowel or mesentery. Normal appendix. There are scattered diverticula in the colon. No diverticulitis is demonstrated. No ascites or fluid collection. No pneumatosis or free air. ABDOMINAL WALL: Borderline small fat-containing umbilical hernia under 3 cm. LYMPH NODES: No lymphadenopathy. VASCULAR: Unremarkable. PELVIC VISCERA: Unremarkable. OSSEOUS STRUCTURES: No acute bony abnormality. CT/CT abdomen pelvis w con IMPRESSION: 1. No bowel obstruction or acute inflammatory changes in bowel or mesentery. Normal appendix. 2. Punctate gallstone. No gallbladder wall thickening or ductal dilatation. 3. No hydronephrosis, calculi, or perinephric stranding.
--- NOTE | ~2021-05-25 | XR_ITS ---
EXAMINATION: XR CHEST CLINICAL INFORMATION: Pneumonia. COMPARISON: CT angiogram chest 09/27/2020 TECHNIQUE: Frontal view of the chest was obtained. FINDINGS: The lungs are well-expanded and clear of acute process. The heart size and pulmonary vascularity is normal. There is moderate spondylosis dorsal spine. XR/XR chest 1V IMPRESSION: Unremarkable chest exam.
[2021-05-25 11:42] VITALS: BP 118/67; PULSE 88; RESP 18; TEMP 36.9; O2SAT 99; BMI 46.0
[2021-05-25 11:46] VITALS: BP 121/80; PULSE 96; RESP 18; TEMP 36.6; O2SAT 98
--- NOTE | 2021-05-25 12:18 | ECG_ITS ---
Test Reason : B PAAIN Blood Pressure : / mmHG Vent. Rate : 078 BPM Atrial Rate : 078 BPM P-R Int : 198 ms QRS Dur : 084 ms QT Int : 396 ms P-R-T Axes : 056 047 050 degrees QTc Int : 451 ms Normal sinus rhythm Normal ECG When compared with ECG of 27-APR-2021 11:56, No significant change was found Referred By: Luiz Schreiber Electronically Signed By:KRISTI PAIGE
[2021-05-25] MEDS: 0.9 % Sodium Chloride 1,000 ML 999 ML IV (12:32)
[2021-05-25 12:35] LABS: Appearance Urine CLEAR; Color Urine YELLOW; Glucose Urine UA NEG (NEG); Leukocyte Esterase Urine NEG (NEG); Nitrite Urine NEG (NEG); Urine Blood NEG (NEG); Urine Ketones NEG (NEG); Urine Protein NEG (NEG-TRACE)
[2021-05-25 12:40] LABS: MANUAL DIFF FLAG NO
--- NOTE | 2021-05-25 12:40 | ED.ABDPAIN ---
HPI - Abdominal Pain General Chief Complaint: Abdominal Pain Stated Complaint: chest & abd pain Time Seen by Provider: 05/25/21 12:18 Source: patient Mode of arrival: ambulatory Limitations: no limitations History of Present Illness HPI narrative: Patient presents to ED for left-sided abdominal pain with mild chest discomfort for one month. Patient states left upper abdomen pain radiating down to left lower quadrant abdominal pain. patient states no fever, chills, shortness of breath. Patient denies any blood in stool or constipation. Patient denies any dizziness, or any symptoms Related Data Previous Rx's Medication Instructions Recorded omeprazole 20 mg capsule,delayed 20 mg PO BID #60 cap 10/19/20 release acetaminophen 500 mg tablet 1,000 mg PO QID PRN #14 tab 04/06/21 (Tylenol Extra Strength) amoxicillin 875 mg-potassium 1 tab PO BID 10 Days #20 tab 04/06/21 clavulanate 125 mg tablet (Augmentin) ibuprofen 800 mg tablet 800 mg PO Q8H PRN #14 tab 04/06/21 ondansetron HCl 4 mg tablet 4 mg PO Q8H PRN #14 tab 04/06/21 (Zofran) dicyclomine 10 mg capsule 20 mg PO BID 7 Days #28 cap 05/25/21 naproxen 500 mg tablet 500 mg PO BID PRN #28 tab 05/25/21 Allergies Allergy/AdvReac Type Severity Reaction Status Date / Time No Known Allergies Allergy Verified 05/25/21 11:42 [No Known Allergies*] Review of Systems Review of Systems Yes all other systems are reviewed and are negative Constitutional: Reports as per HPI and Reports no additional constitutional complaints Eyes: Reports as per HPI and Reports no additional eye complaints Reports system reviewed and no additional complaints, except as documented and Reports as per HPI Cardiovascular: Reports as per HPI and Reports no additional cardiovascular complaints Respiratory: Reports as per HPI and Reports no additional respiratory complaints Gastrointestinal: Reports as per HPI, Reports no additional gastrointestinal complaints and Reports abdominal pain (Left-sided) Genitourinary: Reports no additional male genitourinary complaints and Reports as per HPI Reports system reviewed and no additional complaints, except as documented and Reports as per HPI Psychiatric: Reports no additional psychiatric complaints and Reports as per HPI Physical Exam Vital Signs: Vital Signs: Last Vital Signs Temp 98 F 05/25/21 16:28 Pulse 85 05/25/21 16:28 Resp 18 05/25/21 16:28 BP 121/84 05/25/21 16:28 Pulse Ox 98 05/25/21 16:28 Body Mass Index 46.0 Const: General: cooperative, healthy appearing, comfortable, no acute distress, well developed, alert and awake Orientation/consciousness: patient oriented x3 HENMT: Head: Yes normal to inspection, Yes No palpable skull fracture present, Yes normocephalic, Yes atraumatic and No abrasion Eyes: General: appearance normal, both eyes and all related structures Neck: Neck: Yes normal visual inspection, Yes full ROM, Yes no lymphadenopathy, Yes no meningeal signs, Yes trachea midline, Yes supple and No tender Chest: Chest palpation & inspection: normal inspection of the chest and normal palpation of entire chest wall Resp: Effort & Inspection: normal respiratory effort and able to speak in complete sentences Cardio: Jugular venous distension: no JVD Heart sounds: S1 normal heart sound present and S2 normal heart sound present GI: Inspection: Yes normal to inspection and No abdominal wall ecchymosis Palpation (GI): Soft to palpation, not firm, Tenderness to palpation present (GI) in the LLQ, no guarding and not rigid : General: No CVA tenderness and Yes no CVA tenderness Back/Spine/Pelvis: Back: no CVA tenderness, No CVA tenderness and No back tenderness Skin: General skin exam: no rashes or lesions noted and elasticity normal Neuro: General: patient oriented x3, gait normal, no meningeal signs and CN's II-XI intact bilaterally Cranial nerves: Yes CN's II-XII intact bilaterally Extrem: General: Yes normal to inspection and Yes full ROM Psych: Appearance: grossly normal, well kempt and not disheveled Course Course Course Narrative: Patient labs ordered including EKG, troponin, and UA Reevaluation(s) Reevaluation #1: EKG and troponin after having symptoms for 2 weeks came back negative. Chest x-ray normal. Patient will be sent for abdominal CT scan to evaluate for any abdominal etiology. UA negative for UTI. Reevaluation #2: Abdominal CT scan does not show any acute intra-abdominal surgical or medical etiology. Patient is safe for discharge. Patient will call and follow up with his PCP. Time: 17:30 MDM - Abdominal Pain MDM Narrative Medical decision making narrative: Abdominal pain Lab Data Result diagrams: 05/25/21 12:25 05/25/21 13:05 Labs: Lab Results 05/25/21 05/25/21 05/25/21 Range/Units 12:05 12:25 13:05 WBC 6.8 (4.8-10.8) X10*3/uL RBC 4.62 (4.60-5.80) X10*6/uL Hgb 14.7 (14.0-18.0) g/dl Hct 42.9 (42-52) % MCV 92.9 (80-98) fL MCH 31.8 (27.0-33.0) pg MCHC 34.3 (31.0-36.0) g/dl RDW 12.0 (11.0-16.0) % Plt Count 177 (160-400) X10*3/uL MPV 11.0 (9.4-12.4) fL Immature Gran % (Auto) 0.6 H (0.0-0.4) % Neut % (Auto) 60.6 (45-73) % Lymph % (Auto) 21.3 (20-40) % [place] % (Auto) 10.7 (2-11) % Eos % (Auto) 6.4 H (0-4) % Baso % (Auto) 0.4 (0-2) % Lymph # (Auto) 1.5 (1.2-4.9) X10*3/uL [place] # (Auto) 0.7 (0.1-1.2) X10*3/uL Eos # (Auto) 0.4 (0.0-0.4) X10*3/uL Baso # (Auto) 0.0 (0.0-0.2) X10*3/uL Abs Immat Gran (auto) 0.04 H (0.00-0.03) X10*3/uL Absolute Neuts (auto) 4.1 (2.0-8.3) X10*3/uL Absolute Nucleated RBC 0.000 (0.0-0.012) X10*3/uL Nucleated RBC % (auto) 0.0 (0.0-0.2) /100WBC PT 11.6 (9.9-13.0) SEC INR 1.0 (0.9-1.1) APTT 35.0 (24.1-38.0) SEC Sodium (135-145) mmol/L Potassium (3.3-5.1) mmol/L Chloride (96-108) mmol/L Carbon Dioxide (22-29) mmol/L Anion Gap (12-20) BUN (9-16) mg/dL Creatinine (0.5-1.4) mg/dL Estim Creat Clear Calc Estimated GFR Random Glucose (60-115) mg/dL Calcium (8.4-10.2) mg/dL Total Bilirubin (0.0-1.0) mg/dL Direct Bilirubin (0.0-0.5) mg/dL AST (5-37) U/L ALT (0-40) U/L Alkaline Phosphatase (39-117) U/L Troponin I High Sens (<3.5-35.0) ng/L Total Protein (6.5-8.0) g/dL Albumin (3.5-5.0) g/dL Lipase (8-78) U/L Urine Color YELLOW Urine Appearance CLEAR Urine pH 7.0 (5.0-8.0) Ur Specific Wallace 1.010 (1.005-1.025) Urine Protein NEG (NEG-TRACE) MG/DL Urine Glucose (UA) NEG (NEG) MG/DL Urine Ketones NEG (NEG) MG/DL Urine Blood NEG (NEG) Urine Nitrite NEG (NEG) Ur Leukocyte Esterase NEG (NEG) 05/25/21 05/25/21 Range/Units 13:05 13:05 WBC (4.8-10.8) X10*3/uL RBC (4.60-5.80) X10*6/uL Hgb (14.0-18.0) g/dl Hct (42-52) % MCV (80-98) fL MCH (27.0-33.0) pg MCHC (31.0-36.0) g/dl RDW (11.0-16.0) % Plt Count (160-400) X10*3/uL MPV (9.4-12.4) fL Immature Gran % (Auto) (0.0-0.4) % Neut % (Auto) (45-73) % Lymph % (Auto) (20-40) % [place] % (Auto) (2-11) % Eos % (Auto) (0-4) % Baso % (Auto) (0-2) % Lymph # (Auto) (1.2-4.9) X10*3/uL [place] # (Auto) (0.1-1.2) X10*3/uL Eos # (Auto) (0.0-0.4) X10*3/uL Baso # (Auto) (0.0-0.2) X10*3/uL Abs Immat Gran (auto) (0.00-0.03) X10*3/uL Absolute Neuts (auto) (2.0-8.3) X10*3/uL Absolute Nucleated RBC (0.0-0.012) X10*3/uL Nucleated RBC % (auto) (0.0-0.2) /100WBC PT (9.9-13.0) SEC INR (0.9-1.1) APTT (24.1-38.0) SEC Sodium 139 (135-145) mmol/L Potassium 4.3 (3.3-5.1) mmol/L Chloride 105 (96-108) mmol/L Carbon Dioxide 26 (22-29) mmol/L Anion Gap 12 (12-20) BUN 9 (9-16) mg/dL Creatinine 0.67 (0.5-1.4) mg/dL Estim Creat Clear Calc 146.6 Estimated GFR > 60 Random Glucose 80 (60-115) mg/dL Calcium 9.2 (8.4-10.2) mg/dL Total Bilirubin 0.5 (0.0-1.0) mg/dL Direct Bilirubin < 0.2 (0.0-0.5) mg/dL AST 23 (5-37) U/L ALT 25 (0-40) U/L Alkaline Phosphatase 86 (39-117) U/L Troponin I High Sens < 3.5 (<3.5-35.0) ng/L Total Protein 6.7 (6.5-8.0) g/dL Albumin 4.0 (3.5-5.0) g/dL Lipase 21 (8-78) U/L Urine Color Urine Appearance Urine pH (5.0-8.0) Ur Specific Wallace (1.005-1.025) Urine Protein (NEG-TRACE) MG/DL Urine Glucose (UA) (NEG) MG/DL Urine Ketones (NEG) MG/DL Urine Blood (NEG) Urine Nitrite (NEG) Ur Leukocyte Esterase (NEG) ECG Data Interpretation: Normal sinus rhythm. Normal EKG visibly 78. Pr interval 190. QRS 84. QTC 451. Negative STEMI Discharge Plan Discharge Clinical Impression: Abdominal pain Patient Disposition: Home, Self-Care Instructions: Chest Pain (ED), Abdominal Pain (ED) Additional Instructions: Return to ED for worsening abdominal pain nausea, vomiting, fever, chills, chest pain, shortness of breath, weakness, dizziness, blood in stool, diarrhea, or any other concerning symptoms. Please follow-up with your PCP Prescriptions: New dicyclomine 10 mg capsule 20 mg PO BID 7 Days Qty: 28 RF: 0 naproxen 500 mg tablet 500 mg PO BID PRN (Reason: pain) Qty: 28 RF: 0 No Action ibuprofen 800 mg tablet 800 mg PO Q8H PRN (Reason: pain) Qty: 14 RF: 0 ondansetron HCl [Zofran] 4 mg tablet 4 mg PO Q8H PRN (Reason: nausea and vomiting) Qty: 14 RF: 0 acetaminophen [Tylenol Extra Strength] 500 mg tablet 1,000 mg PO QID PRN (Reason: fever or pain) Qty: 14 RF: 0 amoxicillin-pot clavulanate [Augmentin] 875-125 mg tablet 1 tab PO BID 10 Days Qty: 20 RF: 0 omeprazole 20 mg capsule,delayed release(DR/EC) 20 mg PO BID Qty: 60 RF: 0 Stand Alone Forms: Work/School Release Print Language: Danish [facility] Past Medical History Medical History Asthma Hypertension Obesity Social History Social History Alcohol intake: never Patient Tobacco Use Status: Never used Tobacco Use of substances other than those prescribed or required for medical reasons: No Advance Directives: No Advance Directives Information Provided: No
[2021-05-25 12:50] LABS: Basophils Percent Auto 0.4 % (0-2); Eosinophils Absolute Auto 0.4 X10*3/uL (0.0-0.4); Eosinophils Percent Auto 6.4 % (0-4); Hematocrit 42.9 % (42-52); Hemoglobin 14.7 g/dl (14.0-18.0); Imm Gran Abs Auto 0.04 X10*3/uL (0.00-0.03); Imm Gran Pct Auto 0.6 % (0.0-0.4); Lymphocytes Absolute Auto 1.5 X10*3/uL (1.2-4.9); Lymphocytes Percent Auto 21.3 % (20-40); Mean Corpuscular HGB Conc 34.3 g/dl (31.0-36.0); Mean Corpuscular Hemoglobin 31.8 pg (27.0-33.0); Mean Corpuscular Volume 92.9 fL (80-98); Monocytes Absolute Auto 0.7 X10*3/uL (0.1-1.2); Monocytes Percent Auto 10.7 % (2-11); Neutrophils Absolute Auto 4.1 X10*3/uL (2.0-8.3); Neutrophils Percent Auto 60.6 % (45-73); Platelet Count 177 X10*3/uL (160-400); Red Blood Count 4.62 X10*6/uL (4.60-5.80); White Blood Count 6.8 X10*3/uL (4.8-10.8)
[2021-05-25 13:20] LABS: Prothrombin Time 11.6 SEC (9.9-13.0)
[2021-05-25 13:36] LABS: Alanine Aminotransferase 25 U/L (0-40); Alkaline Phosphatase 86 U/L (39-117); Anion Gap 12 (12-20); Aspartate Amino Transferase 23 U/L (5-37); Bilirubin Direct < 0.2 mg/dL (0.0-0.5); Bilirubin Total 0.5 mg/dL (0.0-1.0); Blood Urea Nitrogen 9 mg/dL (9-16); Calcium 9.2 mg/dL (8.4-10.2); Carbon Dioxide 26 mmol/L (22-29); Chloride 105 mmol/L (96-108); Creatinine Clr Calc Pharmacy 146.6; Estimated Glomerular Filt Rate > 60; Glucose Random 80 mg/dL (60-115); Lipase 21 U/L (8-78); Potassium 4.3 mmol/L (3.3-5.1); Sodium 139 mmol/L (135-145); Total Protein 6.7 g/dL (6.5-8.0)
[2021-05-25 13:38] LABS: Troponin-I High Sensitivity < 3.5 ng/L (<3.5-35.0)
[2021-05-25] MEDS: Ketorolac Tromethamine 15 MG/ML VIAL 30 MG IVPUSH (14:27)
[2021-05-25 14:30] VITALS: BP 154/95; PULSE 74; RESP 18; TEMP 36.4; O2SAT 98
[2021-05-25] MEDS: ondansetron HCL 4 MG/2 ML VIAL IVPUSH (14:38)
[2021-05-25] MEDS: iohexoL 350 MG/ML 100 ML INFUS..BTL IV (15:19)
[2021-05-25 16:28] VITALS: BP 121/84; PULSE 85; RESP 18; TEMP 36.6; O2SAT 98
== END 2021-05-25 18:30 | disposition home or self-care (01) ==
PROVIDERS: Physician Assistant; Emergency Provider Emergency Medicine; PCP Internal Medicine
DX: R10.12 Left upper quadrant pain (principal); R07.9 Chest pain, unspecified; Z79.899 Other long term (current) drug therapy
CPT/HCPCS: 36415; 71045; 74177; 80053; 80076; 81003; 82248; 83690; 84484; 85025; 85610; 85730; 93005; 96361; 96374; 96375; 99284; J1885; J2405; Q9967

== ENCOUNTER 2021-06-09 | Outpatient (REF) | payer MEDICAID, SELFPAY ==
[2021-06-12 12:49] LABS: H Pylori Breath Test Positive (Negative)
== END 2021-06-09 00:01 | disposition home or self-care (01) ==
LOC: HO.LNP
PROVIDERS: Visit Provider Nurse Practitioner Family
DX: Z11.0 Encounter for screening for intestinal infectious diseases (principal)
CPT/HCPCS: 36415; 83013

== ENCOUNTER → 2021-06-09 08:53 | Outpatient (BNVA) | payer MEDICAID, SELFPAY | PROVIDERS: PCP Internal Medicine; Referring Provider Internal Medicine; Visit Provider Nurse Practitioner Family | DX: K21.9 Gastro-esophageal reflux disease without esophagitis (principal); K58.1 Irritable bowel syndrome with constipation; K59.04 Chronic idiopathic constipation | CPT/HCPCS: 36415; 83013; 99202 ==

== ENCOUNTER → 2021-07-10 09:08 | Outpatient (BNVA) | payer MEDICAID, SELFPAY | PROVIDERS: PCP Internal Medicine; Referring Provider Internal Medicine; Visit Provider Nurse Practitioner Family | DX: K59.04 Chronic idiopathic constipation (principal); K21.9 Gastro-esophageal reflux disease without esophagitis | CPT/HCPCS: 99212 ==

== ENCOUNTER 2021-08-08 16:06 | Outpatient (REF) | payer MEDICAID, SELFPAY ==
--- NOTE | ~2021-08-08 | XR_ITS ---
EXAMINATION: XR PELVIS CLINICAL INFORMATION: Low back pain and right-sided sciatica COMPARISON: None TECHNIQUE: AP view of the pelvis. FINDINGS: Bone alignment is normal. No fracture or dislocation is seen. There is mild arthritis at the hip joints. The sacroiliac joints are normal. Soft tissues are normal. XR/XR pelvis 1-2V IMPRESSION: Mild bilateral hip arthritis.
--- NOTE | ~2021-08-08 | XR_ITS ---
EXAMINATION: XR LUMBOSACRAL SPINE WITH OBLIQUES CLINICAL INFORMATION: Low back pain and left-sided sciatica COMPARISON: Previous exam September 2013 TECHNIQUE: AP, both oblique, and lateral views of the lumbar spine. Lateral view of the lumbosacral junction. FINDINGS: Bone alignment is normal. No fracture or dislocation is seen. There is multilevel degenerative spondylosis. There is mild degenerative disc disease, greatest at L3-L4 and L5-S1. There is lower lumbar spine facet arthritis. No pars defect is seen. XR/XR lumbar spine 4V min IMPRESSION: Degenerative changes.
== END 2021-08-08 16:07 | disposition home or self-care (01) ==
LOC: HO.XRAY 16:06
PROVIDERS: PCP Internal Medicine; Visit Provider Internal Medicine
DX: M54.41 Lumbago with sciatica, right side (principal); M54.42 Lumbago with sciatica, left side
CPT/HCPCS: 72110; 72170

== ENCOUNTER 2021-09-12 09:47 | Outpatient (REF) | payer MEDICAID, SELFPAY ==
[2021-09-13 08:31] LABS: H Pylori Breath Test Positive (Negative)
== END 2021-09-12 09:48 | disposition home or self-care (01) ==
LOC: HO.LNP 09:47
PROVIDERS: PCP Internal Medicine; Referring Provider Internal Medicine; Visit Provider Nurse Practitioner Family
DX: K21.9 Gastro-esophageal reflux disease without esophagitis (principal); K59.04 Chronic idiopathic constipation; R14.0 Abdominal distension (gaseous); A04.8 Other specified bacterial intestinal infections
CPT/HCPCS: 83013

== ENCOUNTER 2021-09-30 07:22 | Outpatient (REF) | payer MEDICAID, SELFPAY ==
[2021-09-30 08:25] LABS: Estimated Average Glucose 111 mg/dL; Hemoglobin A1c % 5.5 %
[2021-09-30 08:42] LABS: Cholesterol 178 mg/dL; HDL Cholesterol 46 mg/dL; LDL Cholesterol Calculated 112 mg/dl; Triglycerides 102 mg/dL
[2021-09-30 09:04] LABS: TSH reflex Free T4 0.66 uIU/mL (0.32-4.0); Vitamin D 25-OH Total 14.7 ng/mL (>30)
[2021-10-02 09:15] LABS: Vitamin B12 410 pg/mL (200-900)
== END 2021-09-30 07:23 | disposition home or self-care (01) ==
LOC: HO.LAB 07:22
PROVIDERS: Visit Provider Internal Medicine
DX: Z12.5 Encounter for screening for malignant neoplasm of prostate (principal); E55.9 Vitamin D deficiency, unspecified; G47.33 Obstructive sleep apnea (adult) (pediatric); J30.9 Allergic rhinitis, unspecified; J44.9 Chronic obstructive pulmonary disease, unspecified; K76.0 Fatty (change of) liver, not elsewhere classified
CPT/HCPCS: 36415; 80061; 82306; 82607; 83036; 84153; 84443

== ENCOUNTER → 2021-12-11 14:08 | Outpatient (BNVA) | payer MEDICAID, SELFPAY | PROVIDERS: PCP Internal Medicine; Referring Provider Internal Medicine; Visit Provider Nurse Practitioner Family | DX: K21.9 Gastro-esophageal reflux disease without esophagitis (principal); K59.01 Slow transit constipation; Z86.19 Personal history of other infectious and parasitic diseases | CPT/HCPCS: 83013; 99212 ==

== ENCOUNTER 2021-12-11 15:04 | Outpatient (REF) | payer MEDICAID, SELFPAY ==
[2021-12-13 08:34] LABS: H Pylori Breath Test Negative (Negative)
== END 2021-12-11 15:05 | disposition home or self-care (01) ==
LOC: HO.LNP 15:04
PROVIDERS: Visit Provider Nurse Practitioner Family
DX: Z11.0 Encounter for screening for intestinal infectious diseases (principal)
CPT/HCPCS: 83013

== ENCOUNTER → 2022-10-08 15:52 | Outpatient (BNVA) | payer MEDICAID, SELFPAY | PROVIDERS: Visit Provider Nurse Practitioner Family | DX: Z01.818 Encounter for other preprocedural examination (principal); K21.9 Gastro-esophageal reflux disease without esophagitis | CPT/HCPCS: 99212 ==

== ENCOUNTER 2023-03-02 07:56 | Outpatient (REF) | payer MEDICAID, SELFPAY ==
[2023-03-02 08:44] LABS: MANUAL DIFF FLAG NO
[2023-03-02 08:51] LABS: Basophils Percent Auto 0.3 % (0-2); Eosinophils Absolute Auto 0.4 X10*3/uL (0.0-0.4); Eosinophils Percent Auto 5.9 % (0-4); Hematocrit 44.7 % (42.0-52.0); Hemoglobin 14.8 g/dl (14.0-18.0); Imm Gran Abs Auto 0.02 X10*3/uL (0.00-0.03); Imm Gran Pct Auto 0.3 % (0.0-0.4); Lymphocytes Absolute Auto 1.3 X10*3/uL (1.2-4.9); Lymphocytes Percent Auto 21.8 % (20-40); Mean Corpuscular HGB Conc 33.1 g/dl (31.0-36.0); Mean Corpuscular Hemoglobin 31.2 pg (27.0-33.0); Mean Corpuscular Volume 94.1 fL (80.0-98.0); Mean Platelet Volume 10.4 fL (9.4-12.4); Monocytes Absolute Auto 0.6 X10*3/uL (0.1-1.2); Monocytes Percent Auto 10.3 % (2-11); Neutrophils Absolute Auto 3.6 x10*3/uL (2.0-8.3); Neutrophils Percent Auto 61.4 % (45-73); Platelet Count 187 X10*3/uL (160-400); Red Blood Count 4.75 X10*6/uL (4.60-5.80); Red Cell Distribution Width 11.9 % (11.0-16.0); White Blood Count 5.9 X10*3/uL (4.8-10.8)
[2023-03-02 08:58] LABS: Estimated Average Glucose 105 mg/dL; Hemoglobin A1c % 5.3 %
[2023-03-02 09:21] LABS: Alanine Aminotransferase 30 U/L (0-40); Albumin Level 4.1 g/dL (3.5-5.0); Alkaline Phosphatase 81 U/L (39-117); Anion Gap 11 (12-20); Aspartate Amino Transferase 30 U/L (5-37); Bilirubin Total 1.1 mg/dL (0.0-1.0); Blood Urea Nitrogen 12 mg/dL (9-16); Calcium 9.8 mg/dL (8.4-10.2); Carbon Dioxide 31 mmol/L (22-29); Chloride 103 mmol/L (96-108); Cholesterol 189 mg/dL; Estimated Glomerular Filt Rate > 60; Glucose Random 96 mg/dL (60-115); HDL Cholesterol 43 mg/dL; LDL Cholesterol Calculated 129 mg/dl; Potassium 4.7 mmol/L (3.3-5.1); Sodium 140 mmol/L (135-145); Total Protein 7.4 g/dL (6.5-8.0); Triglycerides 87 mg/dL
[2023-03-02 09:37] LABS: TSH reflex Free T4 0.88 uIU/mL (0.32-4.0)
[2023-03-02 09:38] LABS: Prostate Specific Antigen 0.57 ng/mL (<0.05-4.0)
[2023-03-02 14:20] LABS: CT PCR NOT DETECTED (Not Detect.); NG PCR NOT DETECTED (Not Detect.)
[2023-03-04 10:06] LABS: HBsAGNum1 0.29 S/CO (0.00-0.99); Hepatitis B Core Antibody Nonreactive (Nonreactive); Hepatitis B Surface Antigen Negative (Negative); ~HepC Num1 0.35 S/CO (0.00-0.79); ~Hepatitis B Surface Antibody NONREACTIVE (Nonreactive); ~Hepatitis C Antibody Nonreactive (Nonreactive)
[2023-03-04 10:08] LABS: Syphilis Screen Nonreactive (Nonreactive)
[2023-03-05 14:54] LABS: HIV RNA PCR Qn Copies NOT DETECTED copies/mL (NOT DETECTED); HIV RNA PCR Qn Log Copies NOT DETECTED (NOT DETECTED)
== END 2023-03-02 07:57 | disposition home or self-care (01) ==
LOC: HO.LAB 07:56
PROVIDERS: PCP Registered Nurse; Visit Provider Registered Nurse
DX: Z00.00 Encounter for general adult medical examination without abnormal findings (principal); Z11.4 Encounter for screening for human immunodeficiency virus [HIV]; Z12.5 Encounter for screening for malignant neoplasm of prostate; Z11.3 Encounter for screening for infections with a predominantly sexual mode of transmission
CPT/HCPCS: 0353U; 80053; 80061; 83036; 84153; 84443; 85025; 86704; 86706; 86780; 86803; 87340; 87536

== ENCOUNTER 2023-04-19 14:40 | Outpatient (AMB) | payer MEDICAID, SELFPAY ==
--- NOTE | 2023-04-19 11:32 | MHC.OFFVIS ---
Intake Intake Visit Reasons: LDCT SD Allergies No Known Allergies [No Known Allergies*] Allergy (Verified 10/08/22 16:27) HPI LDCT SD HPI Details Initial visit for this 57yo smoker with a 24PYH. Patient started smoking at age 17 for 33 years at 1/2-1ppd. Quit 7 years ago in 2016. . Denies marijuana use. Denies second hand smoke exposure. Denies exposure to chemicals or substances like asbestos. . Denies known family history of lung cancer. Denies personal history of cancers. . Denies chest in last year. CT of chest done 10/07/2017 noted tiny calcified granuloma on RLL - no suspicious nodules . Denies recent travel outside the [place]. Denies recent respiratory illness or recent hospitalization for respiratory issues. Reports testing positive for COVID twice. Denies receiving COVID Vaccine. . Denies fever, chills, new/worsening cough, hemoptysis, hoarseness or dysphagia. Denies significant chest pain, significant dyspnea or unintentional weight loss. Patient Lung Cancer Screening Questionnaire reviewed with patient by provider. . Shared Decision Making Completed. Patient meets criteria. Discussed in detail with patient, the risk vs benefit of LDCT screening. Patient consents to proceed with scan. Discussed smoking cessation. [facility] Medical History (Updated 04/19/23 @ 14:50 by Valeria Kulkarni PA-C) Asthma Fatty liver History of Helicobacter pylori infection Hypertension Morbid obesity Obstructive sleep apnea Personal history of nicotine dependence Vitamin D deficiency Surgical History (Updated 04/05/23 @ 15:04 by Valeria Kulkarni PA-C) History of colonoscopy Family History (Updated 04/05/23 @ 15:06 by Valeria Kulkarni PA-C) Father Prostate cancer Social History (Updated 04/19/23 @ 14:51 by Valeria Kulkarni PA-C) Alcohol intake: never Patient Tobacco Use Status: Former Tobacco user Quit Date: 2016 Years Smoked: (onset 17yo, 1/2-1ppd x 33yrs, 24pyh - quit 2015) Assessment & Plan Assessment & Plan (1) Personal history of nicotine dependence: Comment: (former smoker - onset 17yo, 1/2-1ppd x 33yrs, 24pyh - quit 2015) Code(s): Z87.891 - Personal history of nicotine dependence Plan: - SDM visit completed today in office. - Patient meets criteria for LDCT for lung cancer screening purposes and is asymptomatic. - Smoking cessation counseling offered. Patients can always call [phone]. - Will arrange for a LDCT scan of the chest for screening purposes at [facility]. - Risks, benefits, and alternatives were discussed in detail and the patient agrees to proceed. - Risks discussed include but are not limited to: radiation exposure, anxiety during testing and while awaiting results, false negatives, false positives and possibility of additional intervention such as further imaging or surgical procedures for benign disease. - Benefits are obviously detection of lung cancer at an early stage which can lead to improved outcomes. - Discussed the importance of screening program compliance with adherence to yearly LDCT scan as scheduled - or sooner interval scans for personalized screening regimen. - Discussed follow up plan. Our office will send a letter discussing results and if needed set up phone call and office visit based on CT findings. - Patient educated on results categorization and the management decisions for suspicious findings potentially found on the screening LDCT scan. Any patient with a Lung RADS score of 3 or 4 will be reviewed by a multidisciplinary team at [facility] to form a plan of action in regards to scan findings. - If further work up is warranted for a suspicious lung finding this will be followed by the Lung Cancer Screening program in conjunction with the Thoracic Surgery Department at [facility]. - A copy of the office note and LDCT will be sent to the patient's PCP - as well as documentation on any associated further plans of care. - Incidental findings on LDCT are the PCP's responsibility. These findings are indicated with an S finding on the LDCT Assessment. A note discussing the findings will be sent to the PCP who is then responsible for further management. - All questions answered.? Coding Level of Care Code Lung Cancer Screening G0296 Diagnoses Personal history of nicotine dependence Z87.891
== END 2023-04-19 15:12 | disposition home or self-care (01) ==
PROVIDERS: Visit Provider Physician Assistant Medical
DX: Z87.891 Personal history of nicotine dependence (principal)
CPT/HCPCS: G0296

== ENCOUNTER 2023-04-19 14:52 | Outpatient (REF) | payer MEDICAID, SELFPAY ==
--- NOTE | ~2023-04-19 | CT_ITS ---
EXAMINATION: CT CHEST SCREENING CLINICAL INFORMATION: Former smoker. Quit 7 years ago. 33 pack-year history. COMPARISON: Previous chest CTA September 2020 TECHNIQUE: Multidetector volumetric CT imaging of the chest is performed without contrast using low dose technique. Additional 2D coronal and sagittal reformatted images and axial 3D maximum intensity projection (MIP) images are generated on the CT workstation. This CT examination was performed using dose optimization techniques as appropriate, variously including the following: *Automated exposure control *Adjustment of mA and/or kV according to patient size (this includes techniques or standardized protocols for targeted exams where dose is matched to indication/reason for exam; i.e. extremities or head) *Use of iterative reconstruction technique DLP: 106 mGy-cm FINDINGS: LUNGS: 2 mm calcified right lower lobe nodule axial image 294 series 5. Stable. 1 mm right middle lobe nodule axial image 348 series 5. Scarring or subsegmental atelectasis at the lung bases. No endobronchial or endotracheal lesion.. MEDIASTINUM: The mediastinum is normal. CORONARY ARTERY CALCIFICATION: Mild PLEURA: There is no pleural effusion. No pleural mass or thickening. AXILLA: No lymphadenopathy. UPPER ABDOMEN: Unremarkable OSSEOUS STRUCTURES: Degenerative changes of the spine. CT/CT lung screening IMPRESSION: Small pulmonary nodules or micronodules, largest measuring 2 mm in the right lower lobe. ASSESSMENT: Lung-RADS category 2: Benign RECOMMENDATION: Annual low-dose chest CT follow-up recommended.
== END 2023-04-19 14:53 | disposition home or self-care (01) ==
LOC: HO.CT 14:52
PROVIDERS: PCP Registered Nurse; Visit Provider Physician Assistant Medical
DX: Z12.2 Encounter for screening for malignant neoplasm of respiratory organs (principal); Z87.891 Personal history of nicotine dependence
CPT/HCPCS: 71271; G0296

== ENCOUNTER 2023-06-18 08:29 | Outpatient (REF) | payer MEDICAID, SELFPAY | END 2023-06-18 08:30 | disposition home or self-care (01) | LOC: HO.HHCL 08:29 | PROVIDERS: Visit Provider Registered Nurse | DX: E78.00 Pure hypercholesterolemia, unspecified (principal) | CPT/HCPCS: 36415; 80061 ==

== ENCOUNTER 2024-04-15 21:55 | Emergency (ER) | payer MEDICAID, SELFPAY ==
[2024-04-15 22:33] VITALS: BP 130/78; PULSE 84; RESP 16; TEMP 36.5; O2SAT 99; BMI 46.9
--- NOTE | 2024-04-15 22:38 | ECG_ITS ---
Test Reason : left arm pain Blood Pressure : / mmHG Vent. Rate : 086 BPM Atrial Rate : 086 BPM P-R Int : 188 ms QRS Dur : 090 ms QT Int : 370 ms P-R-T Axes : 048 035 057 degrees QTc Int : 442 ms Sinus rhythm with occasional Premature ventricular complexes Otherwise normal ECG When compared with ECG of 25-MAY-2021 12:56, Premature ventricular complexes are now Present Referred By: Generic ED Physician Electronically Signed By:PASQUALE VILLEDA MD
[2024-04-15 22:52] LABS: MANUAL DIFF FLAG NO
[2024-04-15 22:56] LABS: Basophils Absolute Auto 0.1 X10*3/uL (0.0-0.2); Basophils Percent Auto 0.7 % (0-2); Eosinophils Absolute Auto 0.4 X10*3/uL (0.0-0.4); Eosinophils Percent Auto 6.1 % (0-4); Hematocrit 40.7 % (42.0-52.0); Imm Gran Abs Auto 0.03 X10*3/uL (0.00-0.03); Imm Gran Pct Auto 0.4 % (0.0-0.4); Lymphocytes Absolute Auto 1.8 X10*3/uL (1.2-4.9); Lymphocytes Percent Auto 24.6 % (20-40); Mean Corpuscular HGB Conc 34.4 g/dl (31.0-36.0); Mean Corpuscular Volume 92.9 fL (80.0-98.0); Mean Platelet Volume 10.1 fL (9.4-12.4); Monocytes Absolute Auto 0.7 X10*3/uL (0.1-1.2); Monocytes Percent Auto 9.5 % (2-11); Neutrophils Absolute Auto 4.3 x10*3/uL (2.0-8.3); Neutrophils Percent Auto 58.7 % (45-73); Platelet Count 178 X10*3/uL (160-400); Red Blood Count 4.38 X10*6/uL (4.60-5.80); Red Cell Distribution Width 11.7 % (11.0-16.0); White Blood Count 7.3 X10*3/uL (4.8-10.8)
[2024-04-15 23:05] LABS: Anion Gap 11 (12-20); Blood Urea Nitrogen 11 mg/dL (9-16); Calcium 9.5 mg/dL (8.4-10.2); Carbon Dioxide 28 mmol/L (22-29); Chloride 106 mmol/L (96-108); Estimated Glomerular Filt Rate > 60; Glucose Random 120 mg/dL (60-115); Potassium 4.2 mmol/L (3.3-5.1); Sodium 141 mmol/L (135-145)
[2024-04-15 23:14] LABS: Troponin-I High Sensitivity < 2.7 ng/L (<3.5-35.0)
== END 2024-04-16 04:48 | disposition left against medical advice (07) ==
PROVIDERS: Emergency Provider Emergency Medicine; PCP Registered Nurse
DX: R51.9 Headache, unspecified (principal); R07.9 Chest pain, unspecified; Z53.21 Procedure and treatment not carried out due to patient leaving prior to being seen by health care provider
CPT/HCPCS: 36415; 80048; 84484; 85025; 93005; 99283

== ENCOUNTER → 2024-04-15 22:38 | Outpatient (BNV) | payer MEDICAID, SELFPAY | PROVIDERS: Emergency Provider Emergency Medicine; PCP Registered Nurse; Visit Provider Internal Medicine Cardiovascular Disease | DX: R42 Dizziness and giddiness (principal) | CPT/HCPCS: 93010 ==

== ENCOUNTER 2024-04-17 13:46 | Emergency (ER) | payer MEDICAID, SELFPAY ==
--- NOTE | ~2024-04-17 | CT_ITS ---
EXAMINATION: CT ANGIOGRAM BRAIN - HEAD AND NECK CLINICAL INFORMATION: Head and neck pain. COMPARISON: None available. TECHNIQUE: Test bolus sequences followed by intravenous administration 80 mL of Omnipaque 350 intravenous contrast. Helical imaging was performed in the axial plane from the aortic arch to the vertex. Delayed postcontrast imaging of the head was also performed. The data was processed at the agricultural research technologist's workstation for generation of MIP sequences. Three-dimensional volume rendered reformatted images were also generated at an offline 3-D workstation. The degree of stenosis determined by NASCET criteria. This CT examination was performed using dose optimization techniques as appropriate, variously including the following: *Automated exposure control *Adjustment of mA and/or kV according to patient size (this includes techniques or standardized protocols for targeted exams where dose is matched to indication/reason for exam; i.e. extremities or head) *Use of iterative reconstruction technique DLP: 1235.24 mGy-cm FINDINGS: CT HEAD: The lateral, third and fourth ventricles are normally outlined. The cortical sulci and basal cisterns are normally outlined as well. There is no acute territorial defect, hemorrhage or midline shift. The extra-axial spaces are unremarkable. Calvarium/scalp: Intact. Maxillofacial sinuses and mastoids: There is mucosal thickening/opacities within the maxillary, ethmoid and sphenoid sinuses. The mastoids are clear. CTA NECK AND HEAD: Motion limits evaluation particularly of the CTA of the head. The aortic arch is normal in appearance. There is a three-vessel branching pattern from the aortic arch. There is no significant plaque or narrowing of the aortic arch vessels. Mild atherosclerotic plaque at the carotid bifurcation on the left. The common carotid, internal and external carotid arteries are patent. The left vertebral artery is dominant. Both vertebral arteries are patent. Evaluation of the intracranial circulation is significantly limited by patient motion. The intracranial internal carotid arteries, middle and anterior cerebral arteries are also patent. The distal vertebral arteries, basilar artery and branches as well as posterior cerebral arteries are also grossly patent. Evaluation for aneurysm is significantly limited by motion. CT/CT angio head neck IMPRESSION: 1. No acute territorial infarct or hemorrhage. 2. Evaluation of the intracranial circulation is significantly limited by patient motion. 3. There is no significant stenosis in the major arteries of the neck.
--- NOTE | ~2024-04-17 | CT_ITS ---
EXAMINATION: CT HEAD WITHOUT CONTRAST CLINICAL INFORMATION: Headache COMPARISON: Prior brain CT of 09/27/2020 TECHNIQUE: Contiguous axial imaging was performed from the skull base to vertex without intravenous administration of contrast. This CT examination was performed using dose optimization techniques as appropriate, variously including the following: *Automated exposure control *Adjustment of mA and/or kV according to patient size (this includes techniques or standardized protocols for targeted exams where dose is matched to indication/reason for exam; i.e. extremities or head) *Use of iterative reconstruction technique DLP: 970 mGy-cm FINDINGS: The ventricles and sulci are normal in size and configuration. No acute hemorrhage, mass effect or shift is evident. Shay-white differentiation is maintained. In the posterior fossa, the brainstem, cerebellum and fourth ventricle image normally. The orbits and calvarium are intact. Considerable mucoperiosteal thickening is evident within bilateral maxillary, ethmoid, sphenoid and to a lesser extent frontal sinuses. There are no air-fluid levels. The mastoid air cells are well pneumatized and clear. CT/CT head/brain wo IV con IMPRESSION: 1. Unremarkable noncontrast brain CT. No acute hemorrhage, mass effect or shift. 2. Considerable sinusitis, as on the prior examination.
[2024-04-17 14:34] VITALS: BP 141/79; PULSE 78; RESP 18; TEMP 36.4; O2SAT 95; BMI 47.9
--- NOTE | 2024-04-17 14:45 | ED.GENADULT ---
HPI - General Adult General Chief complaint: Headache Stated complaint: headache Time Seen by Provider: 04/17/24 21:12 History of Present Illness ED Provider: Aracelis BROWN narrative: The patient is a 58-year-old male who says that 3 days ago on Saturday morning he woke up with a severe headache. It is unlike any headache he has ever had before. He does not have a history of significant headaches in his lifetime. He put up with a headache until Saturday evening when he came to the emergency room for evaluation. There was a very long wait and after 6 hours he left without being seen. His headache has continued any finally returned to the emergency room today. He says that his headache was a 6/10 when he checked into the emergency room and it is currently a 4/10 after receiving acetaminophen prior to my evaluation. He has had another long wait in the emergency room. He has had no fever, sweats, chills. He says the headache is mostly a left-sided headache. He has had some episodes during this headache of some shimmering visual symptoms in his left visual field. No photophobia. No nausea. No vomiting. Related Data Previous Rx's ?Medication ?Instructions ?Recorded bisacodyl 5 mg tablet,delayed 10 mg (2 x 5 mg) PO ONCE 1 day #2 10/09/22 release (Dulcolax (bisacodyl)) tabs polyethylene glycol 3350 17 238 g PO ONCE #238 grams 10/09/22 gram/dose oral powder (Miralax) Allergies Allergy/AdvReac Type Severity Reaction Status Date / Time No Known Allergies Allergy Verified 04/17/24 14:43 [No Known Allergies*] Review of Systems Review of Systems: Yes all other systems are reviewed and are negative [facility] Past Medical History Medical History (Updated 04/18/24 @ 06:00 by Hal Hsu MD) History of Helicobacter pylori infection Obstructive sleep apnea Vitamin D deficiency Personal history of nicotine dependence Morbid obesity Fatty liver Asthma Hypertension Surgical History (Updated 04/05/23 @ 15:04 by Valeria Kulkarni PA-C) History of colonoscopy Family History Family History (Updated 04/05/23 @ 15:06 by Valeria Kulkarni PA-C) Father Prostate cancer Social History Social History (Updated 04/19/23 @ 14:51 by Valeria Kulkarni PA-C) Alcohol intake: never Patient Tobacco Use Status: Former Tobacco user Years Smoked: (onset 17yo, 1/2-1ppd x 33yrs, 24pyh - quit 2015) Smoked in Last 30 Days: No Use of substances other than those prescribed or required for medical reasons: No Advance Directives: No Advance Directives Information Provided: No Do you have a plan to hurt others: No Plan Physical Exam ED Vital Signs: Vital Signs - 24 hr 04/17/24 17:04 04/17/24 20:41 04/18/24 02:51 Temperature 98.0 F 97.7 F Pulse Rate 75 88 74 Respiratory Rate 12 18 18 Blood Pressure 122/89 154/85 H 135/72 Pulse Oximetry 98 99 95 Oxygen Delivery Method Room Air Room Air 04/18/24 06:11 04/18/24 06:21 Temperature 98.0 F 98.0 F Pulse Rate 62 62 Respiratory Rate 16 16 Blood Pressure 138/78 138/78 Pulse Oximetry 98 98 Oxygen Delivery Method Room Air Room Air BMI result Body Mass Index 47.9 Const Other: The patient is a somewhat overweight 58-year-old who was awake and alert. He is pleasant and cooperative. He was in a dark room. HENMT Other: Face is symmetrical. Mucous membranes moist. Eyes Other: Pupils are round equal, conjunctivae clear, extraocular movements intact, visual taveras intact Neck Other: The patient is able to touch his chin to his chest but he reports this makes his left-sided headache worse. Resp Effort & Inspection: normal respiratory effort Auscultation: clear to auscultation bilaterally Cardio Rate: regular rate Rhythm: regular rhythm Heart sounds: S1 normal heart sound present and S2 normal heart sound present GI Other: Abdomen is soft and nontender Skin Other: Skin is dry and unremarkable Neuro Other: The patient is awake, alert, oriented, appropriate. Cognition is normal. Pupils are round equal, extraocular movements are intact, visual taveras are intact, face is symmetrical, speech is clear, he moves all extremities normally with normal coordination. Extrem Other: No peripheral edema Course Course Course Narrative: This is an RME: Additional HPI, ROS, PE not included below will be deferred to primary provider. RME assessment and note performed by: Falguni Christianson PA-C This is a [id number]-male who presents to the ER with a complaint of headache left-sided that goes down into his neck. He was in the emergency room on Saturday however left without being seen. Reporting occasional dizziness, nausea and fatigue. Family member from a brain bleed is worrisome to him. Plan: Labs, CT head Medications Administered Discontinued Medications Generic Name Dose Route Start Last Admin Trade Name Melva PRN Reason Stop Dose Admin Acetaminophen 975 mg 04/17/24 20:30 04/17/24 20:38 Acetaminophen 325 Mg Tablet PO 04/17/24 20:31 975 mg ONCE STA Administration Diphenhydramine HCl 25 mg 04/18/24 02:32 04/18/24 02:52 Diphenhydramine Hcl 50 Mg/Ml Vial IVPUSH 04/18/24 02:33 25 mg ONCE ONE Administration Sodium Chloride 1,000 mls @ 999 mls/hr 04/17/24 21:30 04/17/24 23:00 Ns IV 04/17/24 22:30 Infused .Q1H1M D[place] Infusion Iohexol 75 ml 04/17/24 22:18 04/17/24 22:19 Iohexol 350 Mg/Ml 100 Ml Infus..Btl IV 04/17/24 22:19 75 ml ONCE ONE Administration Ketorolac Tromethamine 10 mg 04/17/24 21:26 04/17/24 21:49 Ketorolac Tromethamine 15 Mg/Ml Vial IVPUSH 04/17/24 21:27 10 mg ONCE ONE Administration Ketorolac Tromethamine 10 mg 04/18/24 02:32 04/18/24 02:53 Ketorolac Tromethamine 15 Mg/Ml Vial IVPUSH 04/18/24 02:33 10 mg ONCE ONE Administration Metoclopramide HCl 10 mg 04/17/24 21:26 04/17/24 21:49 Metoclopramide Hcl 10 Mg/2 Ml Vial IVPUSH 04/17/24 21:27 10 mg ONCE ONE Administration Prochlorperazine Edisylate 10 mg 04/18/24 02:32 04/18/24 02:55 Prochlorperazine Edisylate 10 Mg/2 Ml Vial IVPUSH 04/18/24 02:33 10 mg ONCE ONE Administration Medical Decision Making Medical Decision Making MDM Narrative: The patient is a very pleasant 58-year-old male who does not have a history of headaches. He presents with a headache that he has had for about three days that is primarily on the left side of his head. He reports that the onset of the headache was apparent when he woke up on Saturday morning. He came to the emergency room over 24 hours later on Saturday evening, but left early on after a very long wait. He says the headache has continued since then so he returned this afternoon. There's no report of any fever and he does not report any other symptoms suggesting an infectious process. He does describe some visual shimmering symptoms in his left visual field. No significant photophobia. He is able to touch his chin to his chest. He says this exacerbates his headache just above his left ear, but he does not seem to demonstrate any neck, stiffness, or decreased range of motion of the neck. He has no findings on neurological exam. Over my impression is that this is probably a migraine, headache particularly given the visual shimmering symptoms he describes. Additionally, he has an overall benign clinical appearance. However, he does not have a history of headaches, and he reports an aunt who had some kind of cranial hemorrhage. He had a noncontrast CT that was normal. Given the absence of a history of headaches, I ordered a CT angiogram as well. ?In the meantime, he was treated for possible migraine, headache. He ultimately had the CT angiogram, which unfortunately showed a fair amount of motion artifact but within the limits of the study, no definite aneurysmal findings were made. Ultimately felt better after receiving ketorolac, prochlorperazine, IV fluids, and Benadryl. Clinically my suspicion for a subarachnoid hemorrhage in this patient is not sufficiently high that I think a spinal tap is required. I think he may be discharged to follow up with his regular doctor. He should return if worse. Lab Data 04/17/24 15:07 04/17/24 15:07 Labs: Lab Results 04/17/24 Range/Units 15:07 WBC 6.7 (4.8-10.8) X10*3/uL RBC 4.51 L (4.60-5.80) X10*6/uL Hgb 14.6 (14.0-18.0) g/dl Hct 42.3 (42.0-52.0) % MCV 93.8 (80.0-98.0) fL MCH 32.4 (27.0-33.0) pg MCHC 34.5 (31.0-36.0) g/dl RDW 11.8 (11.0-16.0) % Plt Count 181 (160-400) X10*3/uL MPV 10.2 (9.4-12.4) fL Immature Gran % (Auto) 0.4 (0.0-0.4) % Neut % (Auto) 61.2 (45-73) % Lymph % (Auto) 22.4 (20-40) % [place] % (Auto) 10.2 (2-11) % Eos % (Auto) 5.2 H (0-4) % Baso % (Auto) 0.6 (0-2) % Lymph # (Auto) 1.5 (1.2-4.9) X10*3/uL [place] # (Auto) 0.7 (0.1-1.2) X10*3/uL Eos # (Auto) 0.4 (0.0-0.4) X10*3/uL Baso # (Auto) 0.0 (0.0-0.2) X10*3/uL Abs Immat Gran (auto) 0.03 (0.00-0.03) X10*3/uL Absolute Neuts (auto) 4.1 (2.0-8.3) x10*3/uL Absolute Nucleated RBC 0.000 (0.0-0.012) X10*3/uL Nucleated RBC % (auto) 0.0 (0.0-0.2) /100WBC Sodium 141 (135-145) mmol/L Potassium 4.1 (3.3-5.1) mmol/L Chloride 104 (96-108) mmol/L Carbon Dioxide 31 H (22-29) mmol/L Anion Gap 10 L (12-20) BUN 10 (9-16) mg/dL Creatinine 0.66 (0.5-1.4) mg/dL Estim Creat Clear Calc 147.1 Estimated GFR > 60 Random Glucose 79 (60-115) mg/dL Calcium 9.9 (8.4-10.2) mg/dL Total Bilirubin 0.3 (0.0-1.0) mg/dL Direct Bilirubin 0.1 (0.0-0.5) mg/dL AST 23 (5-37) U/L ALT 24 (0-40) U/L Alkaline Phosphatase 97 (39-117) U/L Troponin I High Sens < 2.7 (<3.5-35.0) ng/L Total Protein 7.3 (6.5-8.0) g/dL Albumin 4.2 (3.5-5.0) g/dL Influenza Type A (PCR) NEGATIVE (Negative) Influenza Type B (PCR) NEGATIVE (Negative) RSV RNA Qual (PCR) NEGATIVE (Negative) SARS-CoV-2 RNA (RT-PCR) NEGATIVE (Negative) Independent Interpretation I performed an independent interpretation of an: EKG Interpretation: EKG at 14:57 shows normal sinus rhythm at 74 beats per minute. It is a normal EKG. Discharge Plan Discharge Clinical Impression: Headache Patient Disposition: Home, Self-Care Instructions: Acute Headache (ED) Additional Instructions: Please rest and take it easy over the next couple of days. Drink lot of fluids. Please plan on keeping your appointment with your regular doctor later this month. You should discuss this headache further at that time. Return to the emergency room if you feel significantly worse at any time. Prescriptions: No Action bisacodyl [Dulcolax (bisacodyl)] 5 mg tablet,delayed release (DR/EC) 10 mg PO ONCE 1 Days Qty: 2 0RF Rx Instructions: take 2 tabs at noon the day before your colonoscopy polyethylene glycol 3350 [Miralax] 17 gram/dose powder 238 g PO ONCE Qty: 238 0RF Rx Instructions: As directed by gastroenterology department at [facility] Referrals: Destini Ferguson FNP [Primary Care Provider] - (Headache) Interventions: ED Discharge Assessment Last Done: 04/18/24 06:21 Discharge Date/Time: 04/18/24 06:22 Print Language: Estonian
--- NOTE | 2024-04-17 14:48 | ECG_ITS ---
Test Reason : DIZZINESS Blood Pressure : / mmHG Vent. Rate : 074 BPM Atrial Rate : 074 BPM P-R Int : 202 ms QRS Dur : 086 ms QT Int : 394 ms P-R-T Axes : 035 019 039 degrees QTc Int : 437 ms Normal sinus rhythm Normal ECG When compared with ECG of 15-APR-2024 22:37, Premature ventricular complexes are no longer Present Referred By: Falguni Christianson Electronically Signed By:PASQUALE VILLEDA MD
[2024-04-17 15:17] LABS: MANUAL DIFF FLAG NO
[2024-04-17 15:20] LABS: Basophils Percent Auto 0.6 % (0-2); Eosinophils Absolute Auto 0.4 X10*3/uL (0.0-0.4); Eosinophils Percent Auto 5.2 % (0-4); Hematocrit 42.3 % (42.0-52.0); Hemoglobin 14.6 g/dl (14.0-18.0); Imm Gran Abs Auto 0.03 X10*3/uL (0.00-0.03); Imm Gran Pct Auto 0.4 % (0.0-0.4); Lymphocytes Absolute Auto 1.5 X10*3/uL (1.2-4.9); Lymphocytes Percent Auto 22.4 % (20-40); Mean Corpuscular HGB Conc 34.5 g/dl (31.0-36.0); Mean Corpuscular Hemoglobin 32.4 pg (27.0-33.0); Mean Corpuscular Volume 93.8 fL (80.0-98.0); Mean Platelet Volume 10.2 fL (9.4-12.4); Monocytes Absolute Auto 0.7 X10*3/uL (0.1-1.2); Monocytes Percent Auto 10.2 % (2-11); Neutrophils Absolute Auto 4.1 x10*3/uL (2.0-8.3); Neutrophils Percent Auto 61.2 % (45-73); Platelet Count 181 X10*3/uL (160-400); Red Blood Count 4.51 X10*6/uL (4.60-5.80); Red Cell Distribution Width 11.8 % (11.0-16.0); White Blood Count 6.7 X10*3/uL (4.8-10.8)
[2024-04-17 15:36] LABS: Alanine Aminotransferase 24 U/L (0-40); Albumin Level 4.2 g/dL (3.5-5.0); Alkaline Phosphatase 97 U/L (39-117); Anion Gap 10 (12-20); Aspartate Amino Transferase 23 U/L (5-37); Bilirubin Direct 0.1 mg/dL (0.0-0.5); Bilirubin Total 0.3 mg/dL (0.0-1.0); Blood Urea Nitrogen 10 mg/dL (9-16); Calcium 9.9 mg/dL (8.4-10.2); Carbon Dioxide 31 mmol/L (22-29); Chloride 104 mmol/L (96-108); Creatinine Clr Calc Pharmacy 147.1; Estimated Glomerular Filt Rate > 60; Glucose Random 79 mg/dL (60-115); Potassium 4.1 mmol/L (3.3-5.1); Sodium 141 mmol/L (135-145); Total Protein 7.3 g/dL (6.5-8.0)
[2024-04-17 15:44] LABS: Troponin-I High Sensitivity < 2.7 ng/L (<3.5-35.0)
[2024-04-17 15:59] LABS: Influenza A PCR NEGATIVE (Negative); Influenza B PCR NEGATIVE (Negative); Resp Syncy Virus RNA Qual PCR NEGATIVE (Negative); SARS COV2 PCR INHOUSE NEGATIVE (Negative)
[2024-04-17 17:04] VITALS: BP 122/89; PULSE 75; RESP 12; TEMP 36.7; O2SAT 98
--- NOTE | 2024-04-17 19:58 | PC.NURSE ---
pt c/o of headache and requesting pain medicine. pt c/o of how long he has been here,
[2024-04-17] MEDS: Acetaminophen 325 MG TABLET 975 MG PO (20:38)
[2024-04-17 20:41] VITALS: BP 154/85; PULSE 88; RESP 18; O2SAT 99
[2024-04-17] MEDS: Ketorolac Tromethamine 15 MG/ML VIAL 10 MG IVPUSH (21:49)
[2024-04-17] MEDS: Metoclopramide HCl 10 MG/2 ML VIAL IVPUSH (21:49)
[2024-04-17] MEDS: 0.9 % Sodium Chloride 1,000 ML 999 ML IV (21:49)
[2024-04-17] MEDS: iohexoL 350 MG/ML 100 ML INFUS..BTL 75 ML IV (22:19)
[2024-04-18 02:51] VITALS: BP 135/72; PULSE 74; RESP 18; TEMP 36.5; O2SAT 95
[2024-04-18] MEDS: diphenhydrAMINE HCL 50 MG/ML VIAL 25 MG IVPUSH (02:52)
[2024-04-18] MEDS: Ketorolac Tromethamine 15 MG/ML VIAL 10 MG IVPUSH (02:53)
[2024-04-18] MEDS: Prochlorperazine Edisylate 10 MG/2 ML VIAL IVPUSH (02:55)
[2024-04-18 06:11] VITALS: BP 138/78; PULSE 62; RESP 16; TEMP 36.7; O2SAT 98
[2024-04-18 06:21] VITALS: BP 138/78; PULSE 62; RESP 16; TEMP 36.7; O2SAT 98
== END 2024-04-18 06:22 | disposition home or self-care (01) ==
PROVIDERS: Physician Assistant Medical; Emergency Provider Emergency Medicine; PCP Registered Nurse
DX: R51.9 Headache, unspecified (principal); Z03.818 Encounter for observation for suspected exposure to other biological agents ruled out; J45.909 Unspecified asthma, uncomplicated; I10 Essential (primary) hypertension; K21.9 Gastro-esophageal reflux disease without esophagitis; Z87.891 Personal history of nicotine dependence
CPT/HCPCS: 0241U; 70450; 70496; 70498; 80048; 80076; 84484; 85025; 93005; 96361; 96374; 96375; 99284; 99285; J0737; J1200; J1885; J2765; Q9967

== ENCOUNTER → 2024-04-17 14:48 | Outpatient (BNV) | payer MEDICAID, SELFPAY | PROVIDERS: Emergency Provider Emergency Medicine; PCP Registered Nurse; Visit Provider Internal Medicine Cardiovascular Disease | DX: R42 Dizziness and giddiness (principal) | CPT/HCPCS: 93010 ==

== ENCOUNTER 2024-05-08 14:54 | Outpatient (REF) | payer MEDICAID, SELFPAY ==
--- NOTE | ~2024-05-08 | XR_ITS ---
EXAMINATION: XR KNEE, RIGHT CLINICAL INFORMATION: Chronic pain. COMPARISON: None available. TECHNIQUE: Frontal, lateral and axial views of the right knee are submitted. FINDINGS: Bony mineralization is normal. The lateral joint space compartment is well maintained and shows articular surface irregularity and peripheral osteophyte formation. There is marked asymmetric narrowing of the medial joint compartment, with a secondary mild varus configuration. The patellofemoral compartment is well maintained and shows peripheral osteophyte formation. There is no fracture or dislocation seen. There is a very small joint effusion. No foreign body is seen. XR/XR knee LT 3V IMPRESSION: 1. No fracture or dislocation is seen. There is a very small joint effusion. 2. There is tricompartment osteoarthritic change of the right knee, most pronounced of the medial joint space compartment, where degenerative change is marked. 3. There is a mild varus configuration. EXAMINATION: XR KNEE, LEFT CLINICAL INFORMATION: Chronic pain. COMPARISON: None available. TECHNIQUE: Frontal, lateral and axial views of the left knee are submitted. FINDINGS: Bony mineralization is normal. The lateral joint space compartment is well-maintained and shows mild peripheral osteophyte formation. The medial joint space compartment shows marked narrowing, with peripheral osteophyte formation. A mild secondary varus configuration is seen. There is moderate narrowing of the patellofemoral compartment. No fracture or dislocation is seen. There is a tiny joint effusion. There is no foreign body. IMPRESSION: 1. No fracture or dislocation is seen. There is a tiny joint effusion. 2. There is tricompartment osteoarthritic change of the left knee, most pronounced of the medial joint space compartment, where degenerative change is marked. 3. There is a mild varus configuration. Electronically signed by: Tirso Perkins MD 05/28/2024 10:48 PM EDT
--- NOTE | ~2024-05-08 | XR_ITS ---
EXAMINATION: XR KNEE, RIGHT CLINICAL INFORMATION: Chronic pain. COMPARISON: None available. TECHNIQUE: Frontal, lateral and axial views of the right knee are submitted. FINDINGS: Bony mineralization is normal. The lateral joint space compartment is well maintained and shows articular surface irregularity and peripheral osteophyte formation. There is marked asymmetric narrowing of the medial joint compartment, with a secondary mild varus configuration. The patellofemoral compartment is well maintained and shows peripheral osteophyte formation. There is no fracture or dislocation seen. There is a very small joint effusion. No foreign body is seen. XR/XR knee RT 3V IMPRESSION: 1. No fracture or dislocation is seen. There is a very small joint effusion. 2. There is tricompartment osteoarthritic change of the right knee, most pronounced of the medial joint space compartment, where degenerative change is marked. 3. There is a mild varus configuration. EXAMINATION: XR KNEE, LEFT CLINICAL INFORMATION: Chronic pain. COMPARISON: None available. TECHNIQUE: Frontal, lateral and axial views of the left knee are submitted. FINDINGS: Bony mineralization is normal. The lateral joint space compartment is well-maintained and shows mild peripheral osteophyte formation. The medial joint space compartment shows marked narrowing, with peripheral osteophyte formation. A mild secondary varus configuration is seen. There is moderate narrowing of the patellofemoral compartment. No fracture or dislocation is seen. There is a tiny joint effusion. There is no foreign body. IMPRESSION: 1. No fracture or dislocation is seen. There is a tiny joint effusion. 2. There is tricompartment osteoarthritic change of the left knee, most pronounced of the medial joint space compartment, where degenerative change is marked. 3. There is a mild varus configuration. Electronically signed by: Tirso Perkins MD 05/28/2024 10:48 PM EDT
== END 2024-05-08 14:55 | disposition home or self-care (01) ==
LOC: HO.XRAY 14:54
PROVIDERS: PCP Registered Nurse; Visit Provider Registered Nurse
DX: M25.561 Pain in right knee (principal); M25.562 Pain in left knee; G89.29 Other chronic pain
CPT/HCPCS: 73562

== ENCOUNTER 2024-05-29 13:10 | Outpatient (AMB) | payer MEDICAID, SELFPAY ==
--- NOTE | 2024-05-29 13:11 | A.OFFVIS_ITS ---
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 Hx of injections with NE on 03/25/2020 that gave him relief. Patient reports ongoing pain for many years. He states that his pain alternates from one knee to the other,however he feels the right knee is worse. Patient mentions that he would like to repeat his injections. 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 Pain is prevalent after an extended period of movement or standing. He had received cortisone injection with Dr. Doyle on 03/25/2020 that gave him good relief. While in the office today, the patient reports having bilateral knee pain that alternates between his knees. He states the right knee is worse than the left knee and has been present for many years. He mentions that he would like to repeat his injection. [facility] Medical History (Updated 05/29/24 @ 13:39 by Danyelle Rodriguez) History of Helicobacter pylori infection Obstructive sleep apnea Vitamin D deficiency Personal history of nicotine dependence Morbid obesity Fatty liver Asthma Hypertension Surgical History (Updated 04/05/23 @ 15:04 by Valeria Kulkarni PA-C) History of colonoscopy Family History (Updated 04/05/23 @ 15:06 by Valeria Kulkarni PA-C) Father Prostate cancer Social History (Updated 05/29/24 @ 13:17 by Lang Vital) Alcohol intake: never Patient Tobacco Use Status: Former Tobacco user Years Smoked: (onset 17yo, 1/2-1ppd x 33yrs, 24pyh - quit 2015) Current occupational status: unemployed Review of Systems Const All systems reviewed & are unremarkable except as noted in HPI and below Physical Exam Vital Signs: BMI result Body Mass Index 46.9 Const General: cooperative and no acute distress Orientation/consciousness: patient oriented x3 Resp Effort & Inspection: normal respiratory effort and able to speak in complete sentences Cardio Peripheral pulses: Peripheral pulses 2+ throughout Skin General skin exam: no rashes or lesions noted Neuro General: patient oriented x3 Extrem Other: Bilateral knees: Normal to inspection. No ecchymosis, erythema, or joint effusion. No tenderness to palpation along the medial or lateral joint lines. Full knee extension and flexion. Crepitus felt with ROM. NVI. Office Procedures Joint Injection/Aspiration Joint Injection/Aspiration Primary Site: right knee Secondary Site: left knee Prep: site was prepped using aseptic technique, ethochloride spray was applied and injection warnings given Injected: 80 mg of, DepoMedrol, with 8 mL of (2% plain lido ) and in the joint Approach Used: anterolateral Procedure: The patient tolerated the procedure well, but had some pain with the injection and there was some relief with the local anesthesia Coding 55690 - Large joint Procedure code (CPT) selection complete Assessment & Plan Assessment & Plan (1) Osteoarthritis of both knees: Code(s): M17.0 - Bilateral primary osteoarthritis of knee Category: Medical Plan Mr. Jeremy Cardozo is a 58-year-old male who presents in the office today, as a new patient, for an evaluation of bilateral knee pain. Pain is prevalent after an extended period of movement or standing. He had received cortisone injection with Dr. Doyle on 03/25/2020 that gave him good relief. While in the office today, the patient reports having bilateral knee pain that alternates between his knees. He states the right knee is worse than the left knee and has been present for many years. He mentions that he would like to repeat his injection. The patient was offered a cortisone injection in the bilateral knees with 80 mg of Depo-Medrol. The patient was explained the risks, benefits, and alternatives to receiving this injection. After receiving consent for the injection, the patient had the procedure done while in the office today. The patient tolerated the procedure well with no complication. Follow up will be PRN, or sooner if needed. X-rays of the bilateral knees, obtained on 05/08/24, revealed: 1. No fracture or dislocation is seen. There is a very small joint effusion. 2. There is tricompartmental osteoarthritic change of the bilateral knees, most pronounced of the medial joint space compartment, where degenerative change is marked. 3. There is a mild varus configuration. Patient Instructions: Scribed by Danyelle Rodriguez medical nurse, for Maria Del Carmen Guanakito DELANEY on 05/29/24 at 1:30 pm EST. Coding Level of Care Code New Pt Level 4 (90364) Diagnoses Osteoarthritis of both knees M17.0 CPT Codes Coding - 90070 Large joint: 69700 - Large joint ([id number])
[2024-05-29 13:17] VITALS: BMI 46.9
== END 2024-05-29 13:33 | disposition home or self-care (01) ==
PROVIDERS: PCP Registered Nurse; Visit Provider Physician Assistant
DX: M17.0 Bilateral primary osteoarthritis of knee (principal)
CPT/HCPCS: 20610; 99204

== ENCOUNTER → 2024-05-29 13:10 | Outpatient (BNVA) | payer MEDICAID, SELFPAY | PROVIDERS: PCP Registered Nurse; Visit Provider Physician Assistant | DX: M17.0 Bilateral primary osteoarthritis of knee (principal) | CPT/HCPCS: 20610; 99212; J1010 ==

== ENCOUNTER 2024-05-30 08:55 | Outpatient (REF) | payer MEDICAID, SELFPAY ==
[2024-05-30 09:12] LABS: MANUAL DIFF FLAG NO
[2024-05-30 09:50] LABS: Basophils Percent Auto 0.4 % (0-2); Eosinophils Absolute Auto 0.3 X10*3/uL (0.0-0.4); Eosinophils Percent Auto 4.2 % (0-4); Hematocrit 43.9 % (42.0-52.0); Hemoglobin 14.7 g/dl (14.0-18.0); Imm Gran Abs Auto 0.02 X10*3/uL (0.00-0.03); Imm Gran Pct Auto 0.3 % (0.0-0.4); Lymphocytes Absolute Auto 1.3 X10*3/uL (1.2-4.9); Lymphocytes Percent Auto 16.3 % (20-40); Mean Corpuscular HGB Conc 33.5 g/dl (31.0-36.0); Mean Corpuscular Hemoglobin 31.3 pg (27.0-33.0); Mean Corpuscular Volume 93.4 fL (80.0-98.0); Mean Platelet Volume 10.3 fL (9.4-12.4); Monocytes Absolute Auto 0.6 X10*3/uL (0.1-1.2); Neutrophils Absolute Auto 5.6 x10*3/uL (2.0-8.3); Neutrophils Percent Auto 70.8 % (45-73); Platelet Count 179 X10*3/uL (160-400); Red Cell Distribution Width 11.7 % (11.0-16.0); White Blood Count 7.9 X10*3/uL (4.8-10.8)
[2024-05-30 09:58] LABS: Estimated Average Glucose 108 mg/dL; Hemoglobin A1c % 5.4 % (<6.0); Total Hemoglobin (HGBA1C) 3703.2681 umol/L
[2024-05-30 10:09] LABS: Alanine Aminotransferase 21 U/L (0-40); Albumin Level 4.4 g/dL (3.5-5.0); Alkaline Phosphatase 102 U/L (39-117); Anion Gap 11 (12-20); Aspartate Amino Transferase 20 U/L (5-37); Bilirubin Total 0.7 mg/dL (0.0-1.0); Blood Urea Nitrogen 9 mg/dL (9-16); Calcium 9.5 mg/dL (8.4-10.2); Carbon Dioxide 27 mmol/L (22-29); Chloride 106 mmol/L (96-108); Cholesterol 201 mg/dL (<200); Estimated Glomerular Filt Rate > 60; Glucose Random 98 mg/dL (60-115); HDL Cholesterol 50 mg/dL (>40); LDL Cholesterol Calculated 137 mg/dL (<100); Sodium 140 mmol/L (135-145); Total Protein 7.8 g/dL (6.5-8.0); Triglycerides 71 mg/dL (<150)
[2024-05-30 10:21] LABS: Prostate Specific Antigen 0.75 ng/mL (<0.05-4.0)
[2024-05-30 10:24] LABS: TSH reflex Free T4 0.61 uIU/mL (0.32-4.0)
[2024-05-30 10:47] LABS: Creatinine Urine 138.22 mg/dL; Microalbum/Creatinine Ratio Ur 36.1 ug/mg cr (<30)
[2024-05-30 12:16] LABS: CT PCR NOT DETECTED (Not Detect.); NG PCR NOT DETECTED (Not Detect.)
[2024-06-01 04:11] LABS: HIV AB/AG Nonreactive (Nonreactive); HIV Num 1 0.06 S/CO (0.00-0.99)
[2024-06-01 16:09] LABS: RPR Rapid Plasma Reagin NON-REACTIVE (NON-REACTIVE)
[2024-06-02 07:44] LABS: HCV Log PCR <1.18 NOT DETECTED Log IU/mL (NOT DETECTED); HepC Viral Load <15 NOT DETECTED IU/mL (NOT DETECTED)
== END 2024-05-30 08:56 | disposition home or self-care (01) ==
LOC: HO.LAB 08:55
PROVIDERS: PCP Registered Nurse; Visit Provider Registered Nurse
DX: Z00.00 Encounter for general adult medical examination without abnormal findings (principal)
CPT/HCPCS: 80053; 80061; 82043; 82570; 83036; 84153; 84443; 85025; 86592; 87389; 87491; 87522; 87591

== ENCOUNTER 2024-08-03 07:50 | Outpatient (AMB) | payer MEDICAID, SELFPAY ==
[2024-08-03 08:19] VITALS: BP 116/68; PULSE 76; O2SAT 96; BMI 48.2
--- NOTE | 2024-08-03 08:19 | MHC.OFFVIS ---
Vital Signs 08/03/24 08:19 Height 5 ft 3 in Weight 272 lb 0.807 oz BMI 48.2 BP 116/68 Blood Pressure Location Rt brachial Position Sitting Pulse 76 Pulse Source Pulse Oximeter Pulse Oximetry (%) 96 Oxygen Delivery Method Room Air Intake Visit Reasons: Discuss colonoscopy Intake Note: Relevant Flags or Indicators ? Requires Facility Technician? Bradley Luna presents in office today for a scheduled FUV to re-establish care. Pt last seen over 1 year ago. Pt is due for colo and cancelled their last procedure. Relevant GI Sx as reported per pt? None ?Hx of any recent surgeries? None Facility Technician Required: Yes Facility Technician Services: Facility Technician Offered & Declined Allergies No Known Allergies [No Known Allergies*] Allergy (Verified 08/03/24 08:19) HPI HPI Discuss colonoscopy: Details: LAST VISIT: GERD (gastroesophageal reflux disease) Continue avoiding dietary triggers. Patient will go for upper endoscopy. Currently is not taking any medications. Does not take PPI or H2 akthy. Denies having any dyspepsia, dysphagia or odynophagia. However we will send him for upper endoscopy as patient had H pylori twice. Successfully treated in 2021. Negative H pylori test in December of 2021 Screen for colon cancer FH colorectal CA: father. Patient is not taking any blood thinners. No history of infectious disease in the past or present. History of sleep apnea using CPAP machine occasionally, not every night as patient reports that it is not comfortable for him. Discussed with patient the importance of good bowel prep and clear liquid diet day before the procedure. Patient verbalizes understanding. What to expect before during and after procedure discussed with patient. I will see him after the procedure. He is agreeable to this plan and verbalizes understanding of instructions. He was given the opportunity to ask questions and all questions answered. ? Thank you for allowing me to participate in his care Plan Medications New bisacodyl (Dulcolax (bisacodyl)) take 2 tabs at noon the day before your colonoscopy 10 mg (2 x 5 mg) PO ONCE 2 tabs 0RF 1 day Z12.11 polyethylene glycol 3350 (Miralax) As directed by gastroenterology department at [facility] 238 grams PO ONCE 238 grams 0RF Z12.11 TODAY'S VISIT Patient is here today for follow-up. Patient reports that he has not gone for colonoscopy yet. 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 Messages were left for patient to call back to schedule procedure and letter was sent for him, however patient never made this appointment. Patient does want to get the procedure done as he has a family history of colorectal cancer. Patient reports that his father had colorectal cancer in early 1999. Patient denies any issues with anesthesia in the past. History of sleep apnea using CPAP occasionally as it is uncomfortable for him. Patient is not on any anticoagulation medication. Denies any cardiac or respiratory symptoms. Denies melena, hematochezia. Patient reports occasional acid reflux, currently not using any PPI. Will send patient for upper endoscopy. Patient denies any other GI concerning symptoms. [facility] Medical History History of Helicobacter pylori infection Obstructive sleep apnea Vitamin D deficiency Personal history of nicotine dependence Morbid obesity Fatty liver Asthma Hypertension Surgical History History of colonoscopy Family History Father Prostate cancer Social History Alcohol intake: never Patient Tobacco Use Status: Former Tobacco user Years Smoked: (onset 17yo, 1/2-1ppd x 33yrs, 24pyh - quit 2015) Current occupational status: unemployed Review of Systems Const Denies weight gain and Denies weight loss ENT Reports no additional complaints, Denies dysphagia and Denies odynophagia Card Reports no additional complaints Resp Reports no additional complaints GI Denies abdominal pain, Denies belching, Denies melena, Denies bloating, Denies change in bowel habits, Denies dysphagia, Denies excessive flatus, Reports dyspepsia (occasional), Denies heartburn, Denies diarrhea, Denies loose stools, Denies nausea, Denies odynophagia and Denies vomiting Reports no additional complaints Musc Reports no additional complaints Neuro Reports no additional complaints Psych Reports no additional complaints Endo Reports no additional complaints Physical Exam Vital Signs: Last Vital Signs Pulse 76 08/03/24 08:19 BP 116/68 08/03/24 08:19 Pulse Ox 96 08/03/24 08:19 Oxygen Delivery Method Room Air 08/03/24 08:19 BMI result Body Mass Index 48.2 Const General: healthy appearing, no acute distress and well developed Nutritional Appearance: well nourished Orientation/consciousness: patient oriented x3 Resp Effort & Inspection: normal respiratory effort, able to speak in complete sentences, no tracheal deviation and symmetric chest movement Auscultation: clear to auscultation bilaterally Cardio Rate: regular rate GI Inspection: Yes normal to inspection, Yes distended and Yes obesity Palpation (GI): Soft to palpation, not firm, nontender and No hepatosplenomegaly present Auscultation: normal bowel sounds General: Yes no CVA tenderness Back/Spine/Pelvis Back: no CVA tenderness Skin General skin exam: elasticity normal, turgor normal and dry skin Neuro General: patient oriented x3 Psych Appearance: grossly normal Mental Status: mental status grossly normal Assessment & Plan Assessment & Plan (1) GERD (gastroesophageal reflux disease): Code(s): K21.9 - Gastro-esophageal reflux disease without esophagitis Category: Medical Qualifiers: Esophagitis presence: esophagitis presence not specified Qualified Code(s): K21.9 - Gastro-esophageal reflux disease without esophagitis (2) Screen for colon cancer: Code(s): Z12.11 - Encounter for screening for malignant neoplasm of colon Plan Patient will avoid dietary triggers and late night snacking staying upright for minimum 3 hours after meals discussed with patient. He is not on any PPI or H2 blockers. Will send him for upper endoscopy. What to expect before during and after procedure discussed with patient. Stressed the importance of clear liquid diet and good bowel prep day before procedure. Patient denies any issues with anesthesia in the past. History of sleep apnea. Not on any anticoagulation medication. Denies any cardiac or respiratory symptoms. I will see patient after the procedure, sooner on as needed basis. He is agreeable to this plan and verbalizes understanding of instructions. He was given the opportunity to ask questions and all questions answered. Thank you for allowing me to participate in his care Medications: New bisacodyl (Dulcolax (bisacodyl)) take 4 tabs at noon the day before your colonoscopy 20 mg (4 x 5 mg) PO ONCE 1 day 4 tabs 0RF Z12.11 - Encounter for screening for malignant neoplasm of colon polyethylene glycol 3350 (Miralax) As directed by gastroenterology department at [facility] 238 grams PO ONCE 238 grams 0RF Z12.11 - Encounter for screening for malignant neoplasm of colon Coding Level of Care Code Est Pt Level 3 (56539) Diagnoses Gastroesophageal reflux disease, unspecified whether esophagitis present K21.9 Esophagitis presence: esophagitis presence not specified Screen for colon cancer Z12.11 Time Spent (min) 30 Comment 20 minutes spent with patient and additional 10 minutes spent reviewing his records
== END 2024-08-03 08:58 | disposition home or self-care (01) ==
PROVIDERS: PCP Registered Nurse; Visit Provider Nurse Practitioner Family
DX: K21.9 Gastro-esophageal reflux disease without esophagitis (principal); Z12.11 Encounter for screening for malignant neoplasm of colon
CPT/HCPCS: 99213

== ENCOUNTER → 2024-08-03 07:50 | Outpatient (BNVA) | payer MEDICAID, SELFPAY | PROVIDERS: PCP Registered Nurse; Visit Provider Nurse Practitioner Family | DX: Z01.818 Encounter for other preprocedural examination (principal); K21.9 Gastro-esophageal reflux disease without esophagitis | CPT/HCPCS: 99212 ==

== ENCOUNTER 2024-11-26 16:17 | Outpatient (REF) | payer MEDICAID, SELFPAY ==
--- NOTE | ~2024-11-26 | CT_ITS ---
CLINICAL HISTORY: Z87.891 - Personal history of nicotine dependence CT lung cancer screening (LDCT) Comparison: 04/19/2023 Technique: Axial CT images of the chest using low-dose technique. Referring provider counseled the patient on shared decision-making for LDCT screening. Additional counseling was provided on smoking cessation. Effective radiation dose total: DLP 98.7 mGycm, CTDIvol 2.8 mGy. Findings: Lung: No new solid or semi solid lesion Coronary artery calcifications: Mild Limited upper abdomen: Unremarkable Other: None Impression: Category 1: Normal; continue annual screening Category 1: Normal; continue annual screening Category 2: Benign appearance or behavior, continue annual screening Category 3: Probably benign, [address] recommended Category 4A: Suspicious, [address] recommended; may consider PET/CT Category 4B: Suspicious, Additional diagnostics and/or tissue sampling recommended Category 4X: Suspicious, Additional diagnostics and/or tissue sampling recommended Category 0: Recalls (incomplete screen due to Incomplete coverage, Noise, Respiratory motion, Expiration, Obscured by acute abnormality) This document has been electronically signed by: Marc Hamilton MD on 11/28/2024 08:37:21
--- OUTSIDE RECORDS SUMMARY | 2024-11-26 18:05 | XMS_ITS | Encounter Summary ---
Author Organization [employer] Address [address] [place] [address] Care Team Providers Care Signals Officer Name Role Phone Destini Ferguson CARMEN Primary Care Provider [phone] Encounter Details Date Type Department Care Team ([facility] st Contact Info) Description 11/20/2024 Population Health Risk Score [facility] () Department [address] [facility] [address] [place] [address] Provider, Population Health Generic Social History Tobacco Use Types Packs/Day Years Used Date Smoking Tobacco: Former Cigarettes Passive Smoke Exposure: Never Smokeless Tobacco: Never Alcohol Use Standard Drinks/Week Comments Never 0 (1 standard drink = 0.6 oz pur e alcohol) Depression Answer Date Recorded Patient Health Questionnaire-9 Score 16 05/04/2024 Patient Health Questionnaire-9 Score 16 05/04/2024 Last PHQ-9: Questionnaire Data Not on file 0 05/04/2024 Housing Stability Answer Date Recorded What is your housing situation today? I have feliberto subramanian 09/30/[address] you li ve. Do you have problems with any of the following? Not on file 09/30/2024 Food Insecurity Answer Date Recorded Within the past 12 months, y ou worried that your food would run out before you got money to buy more: Never True 09/30/2024 Within the past 12 months,th e food you bought just didn't last and you didn't have enough money to get more: Never True Transportation Answer Date Recorded In the past 12 months, has l ack of transportation kept you from medical appts, meetings, work or from getting things needed for daily living? No 09/30/2024 Utilities Answer Date Recorded In the past 12 months, has t he electric, gas, oil or water company threatened to shut off services in your home? No 09/30/2024 Depression Answer Date Recorded Patient Health Questionnaire-2 Score 4 05/04/2024 Internet Access Answer Date Recorded Internet Access Q1 No 09/30/2024 Internet Access Q2 I cannot afford it 09/30/2024 Sex and Gender Information Value Date Recorded Sex Assigned at Male 07/09/2022 10:15 AM EDT Legal Sex Male 10:15 AM EDT Gender Identity Male 07/09/2022 10:15 AM EDT Sexual Orientation Straight 07/09/2022 10 :15 AM EDT documented as of this encounter Plan of Treatment Upcoming Encounters Date Type Department Care Team (Late st Contact Info) Description 12/23/2024 3:15 PM EDT Office Visit [facility] MEDICINE [address] [place] [address] Destini Ferguson FNP [address] [place] [address] 02/26/2025 1:30 PM EDT Office Visit [facility] OPTOMETRY [address] [place] [address] Koeb, Natalie, OD [address] [place] [address] documented as of this encounter Visit Diagnoses Not on filedocumented in this encounter Additional Health Concerns Assessment Noted Time PHQ-9 Depression Total Score: 16 024 3:36 PM EDT documented as of this encounter Care Teams Signals Officer Relationship Specialty Start Date End Date Destini Ferguson FNP [address] [place] [address] PCP - General Family Medicine 12/20/22 documented as of this encounter
--- OUTSIDE RECORDS SUMMARY | 2024-11-26 18:05 | XMS_ITS | Encounter Summary ---
Author Organization [employer] Address [address] [place] [address] Care Team Providers Care Scallop Cutter Machine Name Role Phone Destini Ferguson CARMEN Primary Care Provider [phone] Encounter Details Date Type Department Care Team ([facility] st Contact Info) Description 07/26/2023 Abstract [facility] [address] [place], [place] [id number] Rashida Virk Social History Tobacco Use Types Packs/Day Years Used Date Smoking Tobacco: Never Passive Smoke Exposure: Never Smokeless Tobacco: Never Alcohol Use Standard Drinks/Week Comments Never 0 (1 standard drink = 0.6 oz pur e alcohol) Depression Answer Date Recorded Patient Health Questionnaire-9 Score 18 01/29/2023 Housing Stability Answer Date Recorded What is your housing situation today? I do not have housing (Staying with others, in a hotel, in a fpc, living outside on the street, on a beach, in a car, or in a park 06/16/[address] you li ve. Do you have problems with any of the following? None of the above 06/16/2023 Food Insecurity Answer Date Recorded Within the past 12 months, y ou worried that your food would run out before you got money to buy more: Never True 06/27/2023 Within the past 12 months,th e food you bought just didn't last and you didn't have enough money to get more: Never True Transportation Answer Date Recorded In the past 12 months, has l ack of transportation kept you from medical appts, meetings, work or from getting things needed for daily living? No 06/27/2023 Utilities Answer Date Recorded In the past 12 months, has t he electric, gas, oil or water company threatened to shut off services in your home? No 06/27/2023 Depression Answer Date Recorded Patient Health Questionnaire-2 Score 6 01/29/2023 Sex and Gender Information Value Date Recorded Sex Assigned at Male 07/09/2022 10:15 AM EDT Legal Sex Male 10:15 AM EDT Gender Identity Male 07/09/2022 10:15 AM EDT Sexual Orientation Straight 07/09/2022 10 :15 AM EDT documented as of this encounter Plan of Treatment Upcoming Encounters Date Type Department Care Team (Late st Contact Info) Description 12/23/2024 3:15 PM EDT [facility] [address] [place] [address] Destini Ferguson FNP [address] [place] [address] 02/26/2025 1:30 PM EDT Office Visit [facility] OPT[facility] [address] [place] [address] Kobe, Natalie, OD [address] [place] [address] documented as of this encounter Procedures Procedure Name Priority Date/Time Associated Diagnosis Comments COLONOSCOPY Routine 04/11/2018 documented in this encounter Results * Colonoscopy (04/11/2018) Colonoscopy Normal Normal Narrative Rashida Virk - 04/11/2018 Repeat in 10 years us Historical Provider HEALTH MAINTENANCE Final Result documented in this encounter Visit Diagnoses Not on filedocumented in this encounter Additional Health Concerns Assessment Noted Time PHQ-9 Depression Total Score: 18 023 10:59 AM EDT documented as of this encounter Care Teams Scallop Cutter Machine Relationship Specialty Start Date End Date Destini Ferguson FNP [address] [place] [address] PCP - General Family Medicine 12/20/22 documented as of this encounter
--- OUTSIDE RECORDS SUMMARY | 2024-11-26 18:05 | XMS_ITS | Encounter Summary ---
Author Organization [employer] Address [address] [facility] [address] [place] [address] Care Team Providers Care Rn Complex Care Name Role Phone Destini Ferguson Primary Care Provider [phone] Reason for Visit * Reason Onset Date Comments Referral 04/02/2024 Encounter Details Date Type Department Care Team ([facility] st Contact Info) Description 04/02/[address] 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 MEDICINE [address] [place] [address] Destini Ferguson FNP [address] [place] [address] 02/26/2025 1:30 PM EDT Office Visit [facility] OPTOMETRY [address] [place] [address] Kobe, Natalie, OD [address] [place] [address] documented as of this encounter Visit Diagnoses Not on filedocumented in this encounter Additional Health Concerns Assessment Noted Time PHQ-9 Depression Total Score: 18 023 10:59 AM EDT documented as of this encounter Care Teams Rn Complex Care Relationship Specialty Start Date End Date Destini Ferguson FNP [address] [place] [address] PCP - General Family Medicine 12/20/22 documented as of this encounter
--- OUTSIDE RECORDS SUMMARY | 2024-11-26 18:05 | XMS_ITS | Clinical Summary ---
Author Organization [employer] Address [address] [facility] [address] [place] [address] Care Team Providers Care Tree Pruner Name Role Phone ValenteDestini love CARMEN Primary Care Provider [phone] Allergies No known active allergies Medications ibuprofen 600 MG tablet Take 1 tablet (600 mg) by mouth every 8 (eight) hours if needed (pain). 100 tablet 3 4 05/04/20 25 Active fluticasone (Flonase) 50 MCG/ACT nasal spray INSTILL 1-2 SPRAYS INTO EACH NOSTRIL ONCE PER DAY. SHAKE GENTLY. BEFORE FIRST USE, PRIME PUMP. AFTER USE, CLEAN TIP AND REPLACE CAP. 48 mL 3 4 Active albuterol (2.5 MG/3ML) 0.083% nebulizer solutionIndicat ions:Chronic obstructive pulmonary disease, unspecified COPD type (CMS/HCC) Take 3 mL by nebulization Every 4-6 hours as needed for wheezing or shortness of breath. 75 mL 2 5 Active albuterol 108 (90 Base) MCG/ACT inhalerIndicati ons:Chronic obstructive pulmonary disease, unspecified COPD type (CMS/HCC) Inhale 2 puffs every 4 (four) hours if needed for shortness of breath or wheezing. 36 g 3 5 Active budesonide-form oterol (Symbicort) 80-4.5 MCG/ACT inhalerIndicati ons:Chronic obstructive pulmonary disease, unspecified COPD type (CMS/HCC) Inhale 2 puffs in the morning and at bedtime. Rinse mouth with water after use to reduce aftertaste and incidence of candidiasis. Do not swallow. 1 each 11 5 09/30/19 Active Active Problems Problem Noted Date Diagnosed Date Not immune to hepatitis B virus 05/04/2024 Overview (05/04/2024): Lab Results Component Value Date HEPBSURFAB NONREACTIVE 03/02/2023 HEPBCOREAB Nonreactive 03/02/2023 HEPBSURFACAG Negative 03/02/2023 - Discussed benefit of initiation of Hep B series. Pt declines on 05/04/24. Elevated blood pressure reading 11/28/2023 Assessment & Plan (11/28/2023 10:50 AM EDT): - Pt with complaints of sudden onset headache. No evidence of increased ICP. His BP is higher than normal for him. This however, could be due to pain, but will treat for elevated BP for a few days and ibuprofen prn. -Home BP monitor given and will follow up with nurses in 2 weeks with BP recordings off medication. Sudden onset unilateral headache 11/28/2023 Assessment & Plan (11/28/2023 10:50 AM EDT): - No evidence of increased ICP. His BP is higher than normal for him. This however, could be due to pain, but will treat for elevated BP for a few days and ibuprofen prn. -Home BP monitor given and will follow up with nurses in 2 weeks with BP recordings off medication. Mild intermittent asthma without complication Cigarette smoker 02/04/2023 Assessment & Plan (05/04/2024 3:52 PM EDT): -Quit smoking x 6 months, congratulated! -Started smoking at 17 y.o -Pack years: 30 -Lung Cancer Screening - [facility] [place] 04/19/23 Lung RADS 2 Assessment & Plan (06/11/2023 9:50 AM EDT): -Started smoking at 17 y.o -Currently smoking 1ppd -Pack years: 30 -Lung Cancer Screening - [facility] [place] 04/19/23 Lung RADS 2 -Discussed available smoking cessation resources at [facility] Assessment & Plan (03/24/2023 11:28 AM EDT): -Started smoking at 17 y.o -Currently smoking 1ppd -Pack years: 30 -Lung Cancer Screening form - [facility] - completed 01/29/23 during visit -Discussed available smoking cessation resources at [facility] -Upcoming appt 04/19/23 for LDCT Assessment & Plan (02/04/2023 7:49 PM EDT): -Started smoking at 17 y.o -Currently smoking 1ppd -Pack years: 30 -Lung Cancer Screening form - [facility] - completed 01/29/23 during visit -Discussed available smoking cessation resources at [facility] Healthcare maintenance 01/28/2023 Overview (09/30/2024): Colonoscopy: last April 2018 that showed no polyps. Positive family history of colorectal cancer -father. Scheduled for December 2024. Prostate CA screening: PSA WNL May 2024 Optometry: [facility] Eye [facility], referral placed January 2023 Lung CA screening: LDCT Lung RADS 2 04/19/23 Assessment & Plan (09/30/2024 5:28 PM EST): - Encouraged to call [facility] Lung Cancer screening program to schedule LDCT. Give our office a call with any questions or concerns. - Requested screening of vitamin levels -ordered Assessment & Plan (06/11/2023 9:52 AM EDT): -Colonoscopy: last April 2018 that showed no polyps. Positive family history of colorectal cancer -father. Will most likely need to have a colonoscopy again in 2022 or sooner if he has any Symptoms. Following with GI -Prostate CA screening: PSA WNL February 2023 -Optometry: [facility], referral placed January 2023 -Lung CA screening: LDCT Lung RADS 2 04/19/23 -Declines flu, Hep B, or other vaccines today Assessment & Plan (02/27/2023 5:33 PM EDT): -Colonoscopy: last April 2018 that showed no polyps. Positive family history of colorectal cancer -father. Will most likely need to have a colonoscopy again in 2022 or sooner if he has any Symptoms. -Prostate CA screening: PSA ordered 01/29/23 -Optometry: [facility], referral placed January 2023 -Lung CA screening: referral placed in January 2023 to [facility] Assessment & Plan (02/04/2023 7:50 PM EDT): -Colonoscopy: last April 2018 that showed no polyps. Positive family history of colorectal cancer -father. Will most likely need to have a colonoscopy again in 2022 or sooner if he has any Symptoms. -Prostate CA screening: PSA ordered 01/29/23 -Optometry: [facility], referral placed January 2023 Acute bilateral low back pain without sciatica 0 01/11/2023 Assessment & Plan (03/24/2023 11:35 AM EDT): Acute on chronic low back pain; No red flag symptoms Discussed treatment options including medications, injections, physical therapy, and non-Western medicine such as acupuncture. Informed patient that especially with chronic back pain, our goal to improve daily function and quality of life, but that it is unlikely the back pain is going to completely resolve. The approach to care is going to be multi-modal, and patient expressed awareness that it will take time. Imaging: not indicated at this time Referrals: PT on 02/27/23 Medications: APAP and cyclobenzaprine PRN (previsous trial of NSAIDs not effective) Assessment & Plan (02/27/2023 5:46 PM EDT): Acute on chronic low back pain; No red flag symptoms Discussed treatment options including medications, injections, physical therapy, and non-Western medicine such as acupuncture. Informed patient that especially with chronic back pain, our goal to improve daily function and quality of life, but that it is unlikely the back pain is going to completely resolve. The approach to care is going to be multi-modal, and patient expressed awareness that it will take time. Imaging: not indicated at this time Referrals: PT on 02/27/23 Medications: APAP PRN (previsous trial of NSAIDs not effective) Assessment & Plan (01/11/2023 2:34 PM EDT): Apply heat on affected area Acetaminophen PRN Cyclobenzaprine 10mg Q 8hrs (patient aware of side effect somnolence do not drive) Patient has upcoming appointment with new PCP I advise not to miss appointment and follow if his back pain continues Osteoarthritis of both knees 08/24/2022 Overview (09/30/2024): - Following with [facility] - Received bilateral steroid injection in May 2024 Knee XR 2019 with the following impression: 1. Bilateral medial knee joint compartment osteoarthritis with mild bilateral secondary genu. Similar to prior study 2017. 2. Bilateral thickening suprapatellar bursa representing trace effusions. 3. Spurring at quadriceps insertion bilateral patella. 4. No destructive process. No erosive changes. Assessment & Plan (05/04/2024 3:48 PM EDT): -Crepitus and tenderness of patellar tendon bilateral knees -Repeat XR, cont symptomatic management -Referral to Ortho placed for further eval Assessment & Plan (02/27/2023 5:47 PM EDT): Referral to PT Assessment & Plan (02/04/2023 7:46 PM EDT): Discuss referral to ortho at follow up appt Start celecoxib PRN for knee pain. Reviewed med safety and SE Steatosis of liver 04/07/2021 Vitamin D deficiency 05/22/2018 Obstructive sleep apnea syndrome 11/02/2015 Assessment & Plan (09/30/2024 5:27 PM EST): No longer with CPAP Referral for hospital based sleep study sent 09/30/24 Assessment & Plan (01/28/2023 10:17 PM EDT): ?? Continues with CPAP Allergic rhinitis 07/13/2015 Chronic obstructive lung disease 07/13/2015 Assessment & Plan (09/30/2024 5:30 PM EST): Wheezing auscultated on exam, has been w/o inhalers Continues with albuterol PRN Start symbicort 2 puffs BID. Rinse mouth after use Congratulated on continued smoking cessation Assessment & Plan (01/28/2023 10:18 PM EDT): ?? Overlap with asthma ?? Continues with albuterol PRN Hypercholesterolemia 07/13/2015 Overview (09/30/2024): Lab Results Component Value Date CHOL 201 (H) 05/30/2024 CHOL 193 06/18/2023 CHOL 189 03/02/2023 TRIG 71 05/30/2024 TRIG 119 06/18/2023 TRIG 87 03/02/2023 HDL 50 05/30/2024 HDL 47 06/18/2023 HDL 43 03/02/2023 LDLCHOLCAL 137 (H) 05/30/2024 LDLCHOLCAL 123 (H) 06/18/2023 LDLCHOLCAL 129 03/02/2023 ASCVD 10.3% (PCE '18) - initiated on moderate intensity statin Pt self discontinued Rosuvastatin due to perceived fatigue with med. Neg for myalgia. Reviewed lifestyle interventions Assessment & Plan (09/30/2024 5:27 PM EST): -Repeat fasting lipid panel ordered Assessment & Plan (05/04/2024 3:51 PM EDT): -Repeat lipid panel ordered -If elevated, in agreement to start rosuvastatin Assessment & Plan (06/11/2023 9:48 AM EDT): Congratulated on implementation of healthy lifestyle interventions - lost approx 6 lbs over the past 3 months mainly through exercise and healthy eating habits -Repeat lipid and hepatic panel ordered Assessment & Plan (03/24/2023 11:32 AM EDT): Congratulated on implementation of healthy lifestyle interventions - lost approx 7 lbs over the past mainly through dietary changes Severe obesity (BMI >= 40) 07/13/2015 Assessment & Plan (06/11/2023 9:55 AM EDT): 279 lbs 01/29/23 277 lbs 02/27/23 270 lbs 03/22/23 264 lbs 06/10/23 Weight loss of approx 15 lbs over the past 5 months Encouraged to continue with sustainable healthy lifestyle interventions Assessment & Plan (02/04/2023 7:02 PM EDT): ?? Discussed healthy lifestyle interventions ?? Referral to [facility] Nutrition as requested ?? Discussion of pharmacotherapy options at subsequent appt following review of lab results - consider GLP-1 if covered Encounters Date Type Department Care Team Description 11/20/2024 Population Health Risk Score [facility] Department [address] [id number] Provider, Population Health Generic 09/30/2024 11:30 AM EST Office Visit [facility] MEDICINE [address] [place] [address] Destini Ferguson FNP Obstructive sleep apnea syndrome (Primary Dx); Healthcare maintenance; Primary osteoarthritis of both knees; Hypercholesterolemia; Chronic obstructive pulmonary disease, unspecified COPD type (CMS/HCC); Mild intermittent asthma without complication 09/30/2024 Patient Outreach [facility] [address] [place] [address] Destini Ferguson FNP Care Coordination ([facility] outreach for SDOH WIFi and food needs-referral completed /) 09/30/2024 Travel 09/29/2024 Telephone [facility] [address] [place] [address] Jessica Chris MA Chart Prep from Last 3 Months Immunizations Name Administration Dates Next Due Influenza injectable quadriv alent IIV4 with preservative 07/13/2015 Influenza, IIV3, injectable 09/21/2014 Tdap 09/21/2014 Family History Medical History Relation Name Comments Colon cancer Father Prostate cancer Father Diabetes type II Mother Relation Name Status Comments Father Mother Social History Tobacco Use Types Packs/Day Years Used Date Smoking Tobacco: Former Cigarettes Passive Smoke Exposure: Never Smokeless Tobacco: Never Tobacco Cessation:Counseling Given: Not Answered Alcohol Use Standard Drinks/Week Comments Never 0 [...] Orientation Straight 07/09/2022 10 :15 AM EDT Last Filed Vital Signs Vital Sign Reading Time Taken Comments Blood Pressure 138/90 09/30/2024 12:15 PM EST Pulse 82 09/30/2024 12:15 PM EST Temperature 36.4 ??C (97.5 ??F) 09/30/2024 12:[address] Respiratory Rate 19 09/30/2024 12:15 PM EST Oxygen Saturation 98% 09/30/2024 12:15 PM EST Inhaled Oxygen Concentration - - Weight 124 kg (272 lb 6 oz) 09/30/2024 12:15 PM EST Height 157.5 cm (5' 2 ) 09/30/2024 12:15 PM EST Body Mass Index 49.82 09/30/2024 12:15 PM EST Plan of Treatment Upcoming Encounters Date Type Department Care Team (Late st Contact Info) Description 12/23/2024 3:15 PM EDT Office Visit [facility] MEDICINE [address] [place] [address] Destini Ferguson, [employer] [address] [place] [address] 02/26/2025 1:30 PM EDT Office Visit [facility] OPTOMETRY [address] [place] [address] Kobe, Natalie, OD [address] [place] [address] Health Maintenance Due Date Last Done Comments CT Colonography 1967 FIT DNA/Cologuard 1967 FIT 1967 FOBT 1967 Sigmoidoscopy 1967 Alcohol/Substance Use Screening 1979 Hepatitis A Vaccines (1 of 2 - Risk 2-dose series) 12/26/1986 Pneumococcal Vaccine: 50+ Years (1 of 2 - PCV) 12/26/1986 Zoster Vaccines (1 of 2) 12/26/2017 SDOH Screening 01/30/2024 01/29/2023 Lung Cancer Screening 04/19/2024 COVID-19 Vaccine ( - 2023- season) 2024 Influenza Vaccine (#1) 2024 07/13/2015, 2014 DTaP/Tdap/Td Vaccines (2 - Td or Tdap) 09/21/2024 09/21/2014 Depression Monitoring (PHQ-9) 11/04/2024 05/04/2024, 05/04/2024 Hepatitis B Vaccines (1 of 3 - 19+ 3-dose series) 04/29/2025 Postponed from 12/26/1986 (Patient Refused) Depression Screening 05/04/2025 05/04/2024, 05/04/20 Tobacco Screening 09/30/2025 09/30/2024 Colonoscopy 04/11/2028 04/11/2018 Colorectal Cancer Screening 04/11/2028 Lipid Panel 05/30/2029 05/30/2024, 06/09, 03/02/2023, Additional history exists RSV Patients and Patients Aged 60 years or older (1 - 1-dose 75+ series) 12/26/2042 HIV Screening Completed 05/30/2024, 03/02/2023 Hepatitis C Screening Completed 05/30/2024, 023 HIB Vaccines Aged Out No longer eligi ble based on patient's age to complete this topic HPV Vaccines Aged Out No longer eligi ble based on patient's age to complete this topic IPV Vaccines Aged Out No longer eligi ble based on patient's age to complete this topic Meningococcal Vaccine Aged Out No jeannette sima eligible based on patient's age to complete this topic RSV under 20 months Aged Out No longe r eligible based on patient's age to complete this topic Rotavirus Vaccines Aged Out No longer eligible based on patient's age to complete this topic Procedures Procedure Name Priority Date/Time Associated Diagnosis Comments HEPATITIS C VIRAL RNA, QUANTITATIVE, REAL-TIME PCR Routine 05/30/2024 9:11 AM EDT Healthcare maintenance HIV 1/2 ANTIGEN/ANTIBODY, FOURTH GENERATION W/RFL Routine 05/30/2024 9:11 AM EDT Healthcare maintenance LIPID PANEL, STANDARD Routine 05/30/2024 9:11 AM EDT Healthcare maintenance HM COLONOSCOPY Routine 04/11/2018 from Last 3 Months or Most Recently Relevant to Health Maintenance Results * Hepatitis C Viral RNA, Quantitative, Real-Time PCR (05/30/2024 9:11 AM EDT) Hepatitis C Viral Load <15 NOT DETECTED NOT DETECTED IU/mL [facility] HCV Log PCR <1.18 NOT DETECTED NOT DETECTED Log IU/mL [facility] Comment:For additional infor mation, please refer [email or web address].[employer]/faq/MKD94h0(This link is being provided for informational/educational purposes only.)THIS TEST WAS PERFORMED AT:[facility] [place] [id number] CHUN MD Blood 05/30/2024 9:11 AM EDT 05/30/2024 9:11 AM EDT Destini Ferguson [facility] BLOOD ORDERABLES Final Res ult Performing Organization Address City/[facility]/ZIP Co de Phone Number [facility] [address] [place] [phone] * HIV-1/2 Antigen and Antibodies, Fourth Generation, with Reflexes (05/30/2024 9:11 AM EDT) HIV AB/AG Nonreactive Nonreactive [facility] Comment:HIV-1 p24 Ag and/or HIV-1/HIV-2 Ab not detected.A test result that is nonreactive does not exclude thepossibility of exposure to or infection with HIV-1 and/orHIV-2. Nonreactive results in this assay for individualswith prior exposure to HIV-1 and/or HIV-2 may be due toantigen and antibody levels that are below the limit ofdetection of this assay.The [employer] HIV Ag/Ab Combo assay result andsupplemental assay results should be interpreted inconjunction with the patient's clinical presentation,history and other laboratory results. If the results areinconsistent with clinical evidence, additional testing issuggested to confirm the result. Blood Venous blood specimen / Unknown 05/30/2024 9:11 AM EDT 05/30/2024 9:11 AM EDT Destini Ferguson [facility] BLOOD ORDERABLES Final Res ult Performing Organization Address City/[facility]/ZIP Co de Phone Number [facility] [address] [place] [phone] [phone] * (ABNORMAL) Lipid Panel, Standard (05/30/2024 9:11 AM EDT) Triglycerides 71 <150 mg/dL [facility] Comment:Desirable Triglyceri de: less than 150 mg/dLBorderline High Triglyceride 150-199 mg/dLHigh Triglyceride: 200-499 mg/dLVery High Triglyceride: greater than or equal to 5OO mg/dL Cholesterol 201(H) <200 mg/dL [facility] Comment:Desirable Cholestero l: less than 200 mg/dLBorderline High Cholesterol: 200-239 mg/dLHigh Cholesterol: greater than 239 mg/dL LDL Cholesterol Calculated 137(H) <100 mg/dL [facility] Comment:Desirable LDL: less than 100 mg/dLNear Optimal/Above Optimal LDL: 110- 129 mg/dLBorderline High LDL: 130-159 mg/dLHigh LDL: 160-189 mg/dLVery High LDL: greater than or equal to 190 mg/dL HDL Cholesterol 50 >40 mg/dL [facility] Comment:Desirable HDL: great er than 40 mg/dL Note: This HDL assay may give artificially low results in patients with liver disease. Blood Venous blood specimen / Unknown 05/30/2024 9:11 AM EDT 05/30/2024 9:11 AM EDT Destini Ferguson [employer] LAB BLOOD ORDERABLES Final Res ult [facility] [address] [place] [phone] * Colonoscopy (04/11/2018) Colonoscopy Normal Normal Narrative Rashida Virk - 04/11/2018 Repeat in 10 years Historical Provider HEALTH MAINTENANCE Final Result from Last 3 Months or Most Recently Relevant to Health Maintenance Insurance [facility] C[facility] Care Teams Tree Pruner Relationship Specialty Start Date End Date Destini Ferguson FNP [address] [place] [phone] PCP - General Family Medicine 12/20/22
== END 2024-11-26 16:18 | disposition home or self-care (01) ==
LOC: HO.CT 16:17
PROVIDERS: PCP Registered Nurse; Visit Provider Physician Assistant Medical
DX: Z12.2 Encounter for screening for malignant neoplasm of respiratory organs (principal); Z87.891 Personal history of nicotine dependence
CPT/HCPCS: 71271

== ENCOUNTER → 2024-11-26 16:20 | Outpatient (BNV) | payer MEDICAID, SELFPAY | PROVIDERS: PCP Registered Nurse; Visit Provider Specialist | DX: Z87.891 Personal history of nicotine dependence (principal) | CPT/HCPCS: 71271 ==

== ENCOUNTER 2024-12-10 06:01 | Outpatient (REF) | payer MEDICAID, SELFPAY ==
--- OUTSIDE RECORDS SUMMARY | 2024-12-10 06:03 | XMS_ITS | Encounter Summary ---
Author Organization [employer] Address [address] [facility] [address] [place] [address] Care Team Providers Care Retail Sales Associate Seasonal Name Role Phone Destini Ferguson CARMEN Primary Care Provider [phone] Encounter Details Date Type Department Care Team ([facility] st Contact Info) Description 07/26/2023 Abstract [facility] [address] [place], [place] [phone] Rashida Virk Social History Tobacco Use Types [...] with others, in a hotel, in a correction, living outside on the street, on a [...] Description 12/23/2024 3:15 PM EDT Office Visit [facility] [address] [place] [address] Destini Ferguson FNP [address] [place] [address] 02/26/2025 1:30 PM EDT Office Visit [facility] [address] [place] [address] Kobe, Natalie, OD [address] [place] [address] documented as of this encounter Procedures Procedure [...] documented as of this encounter Care Teams Retail Sales Associate Seasonal Relationship Specialty Start Date End Date Destini Ferguson FNP [address] [place] [address] PCP - General Family Medicine 12/20/22 documented as of this encounter
--- OUTSIDE RECORDS SUMMARY | 2024-12-10 06:03 | XMS_ITS | Clinical Summary ---
Author Organization [employer] Address [address] [facility] [address] [place] [address] Care Team Providers Care Special Education Math Teacher Name Role Phone ValenteDestini love CARMEN Primary Care Provider [phone] Allergies No known active allergies Medications ibuprofen [...] -Pack years: 30 -Lung Cancer Screening - [facility] LDCT 04/19/23 Lung RADS 2 Assessment & Plan (06/11/2023 9:50 AM EDT): -Started smoking at 17 y.o -Currently smoking 1ppd -Pack years: 30 -Lung Cancer Screening - [facility] LDCT 04/19/23 Lung RADS 2 -Discussed available smoking cessation resources at [facility] Assessment & Plan (03/24/2023 11:28 AM EDT): -Started smoking at 17 y.o -Currently smoking 1ppd -Pack years: 30 -Lung Cancer Screening form - [facility] LDCT - completed 01/29/23 during visit -Discussed available smoking cessation resources at [facility] -Upcoming appt 04/19/23 for LDCT Assessment & Plan (02/04/2023 7:49 PM EDT): -Started smoking at 17 y.o -Currently smoking 1ppd -Pack years: 30 -Lung Cancer Screening form - [facility] LDCT - completed 01/29/23 during visit -Discussed available smoking cessation resources at [facility] Healthcare maintenance 01/28/2023 Overview (09/30/2024): Colonoscopy: last April 2018 that showed no polyps. Positive family history of colorectal cancer -father. Scheduled for December 2024. Prostate CA screening: PSA WNL May 2024 Optometry: [facility] Eye Care, referral placed January 2023 Lung CA screening: LDCT Lung RADS 2 04/19/23 Assessment & Plan (09/30/2024 5:28 PM EST): - Encouraged to call [facility] Lung Cancer screening program to schedule LDCT. [...] CA screening: PSA WNL February 2023 -Optometry: [facility] Eye Care, referral placed January 2023 -Lung [...] -Prostate CA screening: PSA ordered 01/29/23 -Optometry: [facility] Eye Care, referral placed January 2023 -Lung CA screening: referral placed in January 2023 to [facility] Assessment & Plan (02/04/2023 7:50 PM EDT): -Colonoscopy: last April 2018 that showed no polyps. Positive family history of colorectal cancer -father. Will most likely need to have a colonoscopy again in 2022 or sooner if he has any Symptoms. -Prostate CA screening: PSA ordered 01/29/23 -Optometry: [facility] Eye Care, referral placed January 2023 Acute [...] knees 08/24/2022 Overview (09/30/2024): - Following with [facility] Ortho - Received bilateral steroid injection in [...] Discussed healthy lifestyle interventions ?? Referral to [facility] Nutrition as requested ?? Discussion of pharmacotherapy options at subsequent appt following review of lab results - consider GLP-1 if covered Encounters Date Type Department Care Team Description 11/26/2024 Orders Only [facility] External Provider, [facility] 11/20/2024 Population Health Risk Score [facility] Department [address] [phone] Provider, Population Health Generic 09/30/2024 11:30 AM EST Office Visit [facility] MEDICINE [address] [place] [address] Destini Ferguson FNP Obstructive sleep apnea syndrome (Primary Dx); Healthcare maintenance; Primary osteoarthritis of both knees; Hypercholesterolemia; Chronic obstructive pulmonary disease, unspecified COPD type (CMS/HCC); Mild intermittent asthma without complication 09/30/2024 Patient Outreach [facility] [address] [place] [address] Destini Ferguson FNP Care Coordination ([facility] outreach for SDOH WIFi and food needs-referral completed /) 09/30/2024 Travel 09/29/2024 Telephone [facility] [address] [place] [address] Jessica Chris MA Chart Prep from Last [...] Description 12/23/2024 3:15 PM EDT Office Visit [facility] MEDICINE [address] [place] [address] Destini Ferguson, [employer]CH[employer] [address] [place] [address] 02/26/2025 1:30 PM EDT Office Visit [facility] OPTOMETRY [address] [place] [address] Kobe, Natalie, OD [address] [place] [address] Health Maintenance Due Date Last Done Comments CT Colonography 1967 FIT DNA/Cologuard 1967 FIT 1967 FOBT 1967 Sigmoidoscopy 1967 Alcohol/Substance Use Screening 1979 Hepatitis A Vaccines (1 of 2 - Risk 2-dose series) 12/26/1986 Pneumococcal Vaccine: 50+ Years (1 of 2 - PCV) 12/26/1986 Zoster Vaccines (1 of 2) 12/26/2017 SDOH Screening 01/30/2024 01/29/2023 COVID-19 Vaccine ( - season) 2024 Influenza Vaccine (#1) 2024 07/13/2015, 2014 DTaP/Tdap/Td Vaccines (2 - Td or Tdap) 09/21/2024 09/21/2014 Depression Monitoring (PHQ-9) 11/04/2024 05/04/2024, 05/04/2024 Hepatitis B Vaccines (1 of 3 - 19+ 3-dose series) 04/29/2025 Postponed from 12/26/1986 (Patient Refused) Depression Screening 05/04/2025 05/04/2024, 05/04/20 24 Tobacco Screening 09/30/2025 09/30/2024 Lung Cancer Screening 11/28/2025 11/28/2024 Colonoscopy 04/11/2028 04/11/2018 Colorectal Cancer Screening 04/11/2028 [...] Procedure Name Priority Date/Time Associated Diagnosis Comments LDCT LUNG SCREENING Routine 11/28/2024 8 :37 AM EDT HEPATITIS C VIRAL RNA, QUANTITATIVE, REAL-TIME PCR Routine 05/30/2024 9:11 AM EDT Healthcare maintenance HIV 1/2 ANTIGEN/ANTIBODY, FOURTH GENERATION W/RFL Routine 05/30/2024 9:11 AM EDT Healthcare maintenance LIPID PANEL, STANDARD Routine 05/30/2024 9:11 AM EDT Healthcare maintenance HM COLONOSCOPY Routine 04/11/2018 from Last 3 Months or Most Recently Relevant to Health Maintenance Results * CT Lung Screening Low dose (11/28/2024 8:37 AM EDT) Anatomical Region Laterality Modality Lung Computed Tomogra phy 11/28/2024 8:37 AM EDT Narrative 11/28/2024 8:38 AM EDT ? [facility] ?[address] ?[place] [address] ? CT Scan Report ? Signed ? Patient: Familia Cardozo,Jeremy A ?MR#: [id number] ?? [id number] ? : 1965 ?Acct:[id number] ? Age/Sex: 58 / M ?ADM Date: 03/20/25 ? Loc: HO.CT ? Attending Dr: Valeria Kulkarni PA-C ? Ordering Physician: Valeria Kulkarni PA-C ?? Date of Service: 11/26/24 ?? Procedure(s): CT lung screening ?? Accession Number(s): [id number] ? cc: Valeria Kulkarni PA-C; Destini Ferguson ? Report Number: ?? [id number]: Total DLP = ??108.00 mGy-cm ? CLINICAL HISTORY: Z87.891 - Personal history of nicotine dependence ? CT lung cancer screening (LDCT) ? Comparison: 04/19/2023 ? Technique: ?? Axial CT images of the chest using low-dose technique. Referring provider ?? counseled the patient on shared decision-making for LDCT screening. ?? Additional counseling was provided on smoking cessation. ?? Effective radiation dose total: DLP 98.7 mGycm, CTDIvol 2.8 mGy. ? Findings: ?? Lung: No new solid or semi solid lesion ? Coronary artery calcifications: Mild ?? Limited upper abdomen: Unremarkable ? Other: None ? Impression: ?? Category 1: Normal; continue annual screening ? Category 1: Normal; continue annual screening ?? Category 2: Benign appearance or behavior, continue annual screening ?? Category 3: Probably benign, [address] recommended ?? Category 4A: Suspicious, [address] recommended; may consider PET/CT ?? Category 4B: Suspicious, Additional diagnostics and/or tissue sampling ?? recommended ?? Category 4X: Suspicious, Additional diagnostics and/or tissue sampling ?? recommended ?? Category 0: Recalls (incomplete screen due to Incomplete coverage, Noise, ?? Respiratory motion, Expiration, Obscured by acute abnormality) ? This document has been electronically signed by: Marc Hamilton MD on ?? 11/28/2024 08:37:21 ? Dictated By: ?Marc Hamilton MD ? Signed By: ?<Electronically signed by Marc Hamilton MD in OV> ?11/28/24837 ? DD/ 08 ? TD/TT: 11/28/24 08 ? Telephone Services Sales Representative: ? Procedure Note Donmariahter, Image - 11/28/[address] [place] [address] [address] Scan Report Signed Patient: Jeremy Rodarte [facility]#: [id number] : 1965Acct:[id number] Age/Sex: 58 / MADM Date: 11/26/24 Loc: HO.CT Attending Dr: Valeria Kulkarni PA-C Ordering Physician: Valeria Kulkarni PA-C Date of Service: 11/26/24 Procedure(s): CT lung screening Accession Number(s): [id number] cc: Valeria Kulkarni PA-C; Destini Ferguson [facility] Report Number: [id number]: Total DLP = 108.00 mGy-cm CLINICAL HISTORY: Z87.891 - Personal history of nicotine dependence CT lung cancer screening (LDCT) Comparison: 04/19/2023 Technique: Axial CT images of the chest using low-dose technique. Referring provider counseled the patient on shared decision-making for LDCT screening. Additional counseling was provided on smoking cessation. Effective radiation dose total: DLP 98.7 mGycm, CTDIvol 2.8 mGy. Findings: Lung: No new solid or semi solid lesion Coronary artery calcifications: Mild Limited upper abdomen: Unremarkable Other: None Impression: Category 1: Normal; continue annual screening Category 1: Normal; continue annual screening Category 2: Benign appearance or behavior, continue annual screening Category 3: Probably benign, [address] recommended Category 4A: Suspicious, [address] recommended; may consider PET/CT Category 4B: Suspicious, Additional diagnostics and/or tissue sampling recommended Category 4X: Suspicious, Additional diagnostics and/or tissue sampling recommended Category 0: Recalls (incomplete screen due to Incomplete coverage, Noise, Respiratory motion, Expiration, Obscured by acute abnormality) This document has been electronically signed by: Marc Hamilton MD on 11/28/2024 08:37:21 Dictated By: Marc Hamilton MD Signed By: <Electronically signed by Marc Hamilton MD in OV> 11/28/24 0838 DD/ TD/TT: 11/28/24836 Telephone Services Sales Representative: [facility] External Provider IMG CT PROCEDURES Edited Result - Final * Hepatitis C Viral RNA, Quantitative, Real-Time PCR (05/30/2024 9:11 AM EDT) Pathologist [facility] Hepatitis C Viral Load <15 NOT DETECTED NOT DETECTED IU/mL [facility] HCV Log PCR <1.18 NOT DETECTED NOT DETECTED Log IU/mL [facility] Comment:For additional infor farrukh, please refer tohttp://education.[employer]/faq/YUC35e4(This link is being provided for informational/educational purposes only.)THIS TEST WAS PERFORMED AT:[facility] [place] [id number] CHUN MD Blood 05/30/2024 9:11 AM EDT 05/30/2024 9:11 AM EDT Result [facility] Destini Ferguson [employer] LAB BLOOD ORDERABLES Final Res ult [facility] [address] [place] [phone] * HIV-1/2 Antigen and Antibodies, Fourth Generation, with Reflexes (05/30/2024 9:11 AM EDT) Pathologist [facility] HIV AB/AG Nonreactive Nonreactive [facility] Comment:HIV-1 p24 Ag and/or HIV-1/HIV-2 Ab not detected.A test result that is nonreactive does not exclude thepossibility of exposure to or infection with HIV-1 and/orHIV-2. Nonreactive results in this assay for individualswith prior exposure to HIV-1 and/or HIV-2 may be due toantigen and antibody levels that are below the limit ofdetection of this assay.The [employer] HIV Ag/Ab Combo assay result andsupplemental assay results should be interpreted inconjunction with the patient's clinical presentation,history and other laboratory results. If the results areinconsistent with clinical evidence, additional testing issuggested to confirm the result. Blood Venous blood specimen / Unknown 05/30/2024 9:11 AM EDT 05/30/2024 9:11 AM EDT us Destini Ferguson [employer] LAB BLOOD ORDERABLES Final Res ult [facility] [address] [place] [phone] * (ABNORMAL) Lipid Panel, Standard (05/30/2024 9:11 AM EDT) Triglycerides 71 <150 mg/dL [facility] Comment:Desirable Triglyceri de: less than 150 mg/dLBorderline High Triglyceride 150-199 mg/dLHigh Triglyceride: 200-499 mg/dLVery High Triglyceride: greater than or equal to 5OO mg/dL Cholesterol 201(H) <200 mg/dL [facility] Comment:Desirable Cholestero l: less than 200 mg/dLBorderline High Cholesterol: 200-239 mg/dLHigh Cholesterol: greater than 239 mg/dL LDL Cholesterol Calculated 137(H) <100 mg/dL [facility] Comment:Desirable LDL: less than 100 mg/dLNear Optimal/Above Optimal LDL: 110- 129 mg/dLBorderline High LDL: 130-159 mg/dLHigh LDL: 160-189 mg/dLVery High LDL: greater than or equal to 190 mg/dL HDL Cholesterol 50 >40 mg/dL [facility] Comment:Desirable HDL: great er than 40 mg/dL Note: This HDL assay may give artificially low results in patients with liver disease. Blood Venous blood specimen / Unknown 05/30/2024 9:11 AM EDT 05/30/2024 9:11 AM EDT Destini MORALES LAB BLOOD ORDERABLES Final Res ult [facility] [address] [place], [place] [phone] * Colonoscopy (04/11/2018) Colonoscopy Normal Normal Narrative Rashida Virk - 04/11/2018 Repeat in 10 years us Historical Provider MD HEALTH MAINTENANCE Final Result from Last 3 Months or Most Recently Relevant to Health Maintenance Insurance * Guarantor: Jeremy Rodatre Account Type Relation to Patient Date of Phone Billing Address Personal/Family Self [address] [facility] Care Teams Special Education Math Teacher Relationship Specialty Start Date End Date Destini Ferguson FNP [address] [place] [phone] PCP - General Family Medicine 12/20/22
--- OUTSIDE RECORDS SUMMARY | 2024-12-10 06:03 | XMS_ITS | Encounter Summary ---
Author Organization [employer] Address [address] [facility] [address] [place] [address] Care Team Providers Care Homogenizer Operator Name Role Phone Destini Ferguson Primary Care Provider [phone] Reason for Visit * Reason Onset Date Comments Referral 04/02/2024 Encounter Details Date Type Department Care Team ([facility] st Contact Info) Description 04/02/2024 Telephone [facility] MEDICINE [address] [place] [address] Destini Ferguson FNP [address] [place] [address] Referral Social History Tobacco Use Types Packs/Day [...] with others, in a hotel, in a prison, living outside on the street, on a [...] status for a referral for Cortizone injections 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 documented in this encounter Plan of Treatment Upcoming Encounters Date Type Department Care Team (Late st Contact Info) Description 12/23/2024 3:15 PM EDT Office Visit [facility] MEDICINE [address] [place] [address] Destini Ferguson FNP [address] [place] [address] 02/26/2025 1:30 PM EDT Office Visit [facility] OPTOMETRY [address] [place] [address] Kobe, Natalie, OD [address] [place] [address] documented as of this encounter Visit Diagnoses Not on filedocumented in this encounter Additional Health Concerns Assessment Noted Time PHQ-9 Depression Total Score: 18 023 10:59 AM EDT documented as of this encounter Care Teams Homogenizer Operator Relationship Specialty Start Date End Date Destini Ferguson FNP [address] [place] [address] PCP - General Family Medicine 12/20/22 documented as of this encounter
[2024-12-10 07:55] LABS: Alanine Aminotransferase 27 U/L (0-40); Albumin Level 4.3 g/dL (3.5-5.0); Alkaline Phosphatase 93 U/L (39-117); Anion Gap 11 (12-20); Aspartate Amino Transferase 26 U/L (5-37); Bilirubin Direct 0.2 mg/dL (0.0-0.5); Bilirubin Total 0.5 mg/dL (0.0-1.0); Blood Urea Nitrogen 12 mg/dL (9-16); Calcium 9.6 mg/dL (8.4-10.2); Carbon Dioxide 31 mmol/L (22-29); Chloride 105 mmol/L (96-108); Cholesterol 195 mg/dL (<200); Estimated Glomerular Filt Rate > 60; Glucose Random 94 mg/dL (60-115); HDL Cholesterol 41 mg/dL (>40); LDL Cholesterol Calculated 117 mg/dL (<100); Magnesium 2.1 mg/dL (1.6-2.6); Potassium 4.8 mmol/L (3.3-5.1); Sodium 142 mmol/L (135-145); Total Protein 7.4 g/dL (6.5-8.0); Triglycerides 187 mg/dL (<150)
[2024-12-10 08:18] LABS: Vitamin D 25-OH Total 22.2 ng/mL (>30)
[2024-12-10 08:23] LABS: Vitamin B12 642 pg/mL (200-900)
== END 2024-12-10 06:02 | disposition home or self-care (01) ==
LOC: HO.LAB 06:01
PROVIDERS: PCP Registered Nurse; Visit Provider Registered Nurse
DX: Z00.00 Encounter for general adult medical examination without abnormal findings (principal); E78.00 Pure hypercholesterolemia, unspecified
CPT/HCPCS: 36415; 80048; 80061; 80076; 82306; 82607; 82746; 83735

== ENCOUNTER 2024-12-18 07:34 | Day surgery (SDC) | payer MEDICAID, SELFPAY ==
[2024-12-16 13:44] VITALS: BMI 48.2
--- NOTE | 2024-12-17 09:02 | HO.ANESPROP2 ---
Documented by User: Elida Blackburn NP 12/17/24 09:04 HPI - Anesthesia Eval Consult details Narrative: 58yo M for Upper Endoscopy and Colonoscopy BMI: 48 PMFSH Active Problems Active Problems: All Active Problems Osteoarthritis of both knees (Acute) Obstructive sleep apnea (Acute) Personal history of nicotine dependence (Acute) Morbid obesity (Acute) Left inguinal pain (Acute) Hypertension (Acute) Asthma (Acute) GERD (gastroesophageal reflux disease) (Acute) Chest pain (Acute) Past Medical History Medical History History of Helicobacter pylori infection Obstructive sleep apnea Vitamin D deficiency Personal history of nicotine dependence Morbid obesity Fatty liver Asthma Hypertension Family History Family History Father Prostate cancer Surgical History Surgical History History of colonoscopy Social History Social History Alcohol intake: never Patient Tobacco Use Status: Former Tobacco user Years Smoked: (onset 17yo, 1/2-1ppd x 33yrs, 24pyh - quit 2015) Use of substances other than those prescribed or required for medical reasons: No Are you DNR?: No Advance Directives: No Advance Directives Information Provided: Yes Poor oral hygiene: No Current occupational status: unemployed Meds Allergies Allergy/AdvReac Type Severity Reaction Status Date / Time No Known Allergies Allergy Verified 08/03/24 08:19 [No Known Allergies*] Exam Height,Weight and Vital Signs: Height 5 ft 3 in Weight 123.377 kg Assessment and Plan Assessment Anesthesia Assessment: Chart Reviewed Documented by User: Madie Hickman MD 12/18/24 08:24 PMFSH Past Medical History Medical History History of Helicobacter pylori infection Obstructive sleep apnea Vitamin D deficiency Personal history of nicotine dependence Morbid obesity Fatty liver Asthma Hypertension Family History Family History Father Prostate cancer Family history of problems with anesthesia: No Surgical History Surgical History History of colonoscopy History of Problems with Anesthesia: No Social History Social History Alcohol intake: never Patient Tobacco Use Status: Former Tobacco user Years Smoked: (onset 17yo, 1/2-1ppd x 33yrs, 24pyh - quit 2015) Use of substances other than those prescribed or required for medical reasons: No Are you DNR?: No Advance Directives: No Advance Directives Information Provided: Yes Poor oral hygiene: No Current occupational status: unemployed Meds Allergies Allergy/AdvReac Type Severity Reaction Status Date / Time No Known Allergies Allergy Verified 08/03/24 08:19 [No Known Allergies*] Exam Airway Mallampati Class: II TM Dist: >3cm Neck ROM: Limited Heart: rrr Lungs: cta Assessment and Plan Assessment Anesthesia Assessment: Anesthesia Plan Discussed Final Anesthetic Review Family History of Problems with Anesthesia: No History of Problems with Anesthesia: No NPO: Yes ASA Class: III Final Preanesthetic Review: No Changes in Pt Med Stat, Meds/Allgs Chart Reviewed, Consent Obtained/Reviewed and Anes Risks/Benef Reviewed Patient Risk: Intermediate Procedure Risk: Low Anesthetic Plan Anesthetic Plan: MAC: Disposition: Standard PACU
[2024-12-18 08:09] VITALS: BMI 50.2
[2024-12-18 08:21] VITALS: BP 136/88; PULSE 82; RESP 16; TEMP 36.3; O2SAT 95
[2024-12-18] MEDS: Lactated Ringers 1,000 ML 100 ML IVCONT (08:29)
--- NOTE | 2024-12-18 08:42 | MHC.SHP ---
Pre-Procedural Eval Section A - 24 Hr Update-Section A only Date of Service: 12/18/24 The patient is an INPATIENT: No The patient has been examined within 24 hours of the surgical procedure. The History & Physical has been completed within 30 days and I have reviewed it.: No Section B - Complete if H&P > 30 days Chief Complaint: screening, GERD Relevant Family History (Specify if Yes): No Relevant Social History: Tobacco Use (former smoker) Present Medications: see Short Stay Collaborative assessment Medical History: Significant History (History of Helicobacter pylori infection Obstructive sleep apnea Vitamin D deficiency Personal history of nicotine dependence Morbid obesity Fatty liver Asthma Hypertension) History of Previous Operations: Relevant previous surgery/procedure and date(s) (History of colonoscopy) Allergies: Allergies Allergy/AdvReac Type Severity Reaction Status Date / Time No Known Allergies Allergy Verified 08/03/24 08:19 [No Known Allergies*] Review of Systems Sugical H&P ROS: Negative: Constitution, Cardiovascular, Respiratory and Gastrointestinal Exam Surgical H&P Exam: Normal: Heart, Normal: Lungs, Normal: Extremities and Normal: Abdomen Plan Diagnosis/Plan: Unchanged I have reviewed the history and physical and performed a pertinent physical examination on my patient. No changes have occurred unless specified. Time Spent With Patient Time: Total time managing care of this patient today ____ minutes.
--- NOTE | 2024-12-18 09:41 | P.OPN-COLO_ITS ---
Colonoscopy Operative Note Operative Note Date of Service: 12/18/24 Narrative: FLEXIBLE TRANSORAL UPPER GASTROINTESTINAL ENDOSCOPY WITH BIOPSIES AND COLONOSCOPY TILL CECUM WITH BIOPSIES AND SNARE POLYPECTOMY Pre-op diagnosis: Colon cancer screening, GERD, recurrent H pylori infection Post-op diagnosis: GERD, Gastritis, Colon Polyps, Diverticulosis, hemorrhoids Endoscopist:? Peg Go MD Anesthesia:?MAC UPPER ENDOSCOPY Consent: Indications for the procedure and potential complications of bleeding, perforation, reaction to medications and missed diagnosis were discussed with the patient and informed consent was obtained. Instrument: Olympus GIF H 190 mid size upper endoscope Monitoring: Vital signs and clinical assessment, continuous EKG monitoring, Pulse oximetry, Carbon Dioxide monitoring and blood pressure monitoring were done throughout the procedure. Procedure: The patient was placed in the left lateral decubitis position and pre-procedure medications were administered and a bite block was placed. The endoscope was inserted into the mouth and advanced under direct vision to the third part of duodenum. A careful inspection was made as the upper endoscope was withdrawn including a retroflexed examination of the proximal stomach; Findings and interventions are described below. Findings: Larynx: Normal Esophagus: GE junction at 40 cms. No esophagitis or Mcginnis's. Stomach: Moderate diffuse gastric erythema with a few superficial chronic appearing erosions in the antum. Biopsies were obtained from the gastric body and antrum. Antral biopsies were sent for H Pylori culture and sensitivity Grade 2 flap valve on retroflexed examination of the cardia. Duodenum: Normal bulb and descending duodenum Intervention: Biopsies as noted above COLONOSCOPY PROCEDURE NOTE Instrument: Olympus PCF H 190 L variable stiffness pediatric colonoscope Monitoring: Vital signs and clinical assessment, intermittent blood pressure monitoring, continuous EKG monitoring, Pulse oximetry and Carbon Dioxide monitoring were done throughout the procedure. Please see anesthesia flowsheet. Colon withdrawl time was 25 minutes. Procedure: The patient was placed in the left lateral decubitis position and pre-procedure medications were administered. After a digital rectal examination of the ano-rectum, the video colonoscope was inserted into the rectum and advanced through the colon to the cecum. The colonoscope was slowly withdrawn in a retrograde panoramic fashion and the colon mucosa was carefully examined including a retroflexed view of the rectum. Findings and interventions are described below. Procedure Difficulty: without difficulty Findings: Terminal Ileum: Not evaluated Cecum: Normal Ascending Colon: Normal Transverse Colon: A 6-7 mm sessile polyp - removed with a cold snare Descending Colon: Moderate diverticulosis Sigmoid Colon: An 8-9 mm sessile polyp - removed with a hot snare. A 3-4 mm sessile polyp adjacent to a diverticulum - removed with a cold biopsy. Severe diverticulosis with luminal narrowing Rectum: Normal Ano-rectum: Moderate internal hemorrhoids Colon preparation: Good after copious irrigation. [place] Bowel Preparation Scale Right colon; 2 Transverse colon: 2 Left colon; 2 (0 = Unprepared colon segment with mucosa not seen due to solid stool that cannot be cleared. 1 = Portion of mucosa of the colon segment seen, but other areas of the colon segment not well seen due to staining, residual stool and/or opaque liquid. 2 = Minor amount of residual staining, small fragments of stool and/or opaque liquid, but mucosa of colon segment seen well. 3 = Entire mucosa of colon segment seen well with no residual staining, small f ragments of stool or opaque liquid) Impression and Post Procedure Diagnosis: Endoscopy Findings: ESOPHAGUS: Normal STOMACH: Moderate diffuse gastric erythema with a few superficial chronic appearing erosions in the antum. Biopsies were obtained from the gastric body and antrum. Antral biopsies were sent for H Pylori culture and sensitivity DUODENUM: Normal Colonoscopy Findings: Three small polyps were removed Moderate to severe diverticulosis seen in the left colon Moderate hemorrhoids on retroflexed exam. Plan: Pt has a FU appointment on 01/01/25 with Praveena Rivera NP Repeat Colonoscopy in 5 years if polyps are adenomatous and due to family history of colon cancer A summary of above findings and relevant handouts were given to the patient. On GI clinic FU, Pt can be started on Pepcid or once daily PPI for gastritis if he is having any upper GI symptoms BIOPSIES SHOWED: A. Gastric antrum, biopsy: Gastric antral mucosa with minimal chronic inactive gastritis; negative for H.pylori, intestinal metaplasia and dysplasia. B. Gastric body, biopsy: Gastric body mucosa with congestion and minimal chronic inactive gastritis; negative for H. pylori, intestinal metaplasia and dysplasia. C. Colon, transverse, polyp: Tubular adenoma, completely excised; negative for high-grade dysplasia and carcinoma. D. Colon, sigmoid polyps: Tubular adenoma (1 piece), completely excised; negative for high-grade dysplasia and carcinoma, and minute polypoid fragment of colonic mucosa with features suggesting inflammatory polyp. Letter sent with biopsy results. Pt was placed on the colonoscopy recall list.
[2024-12-18 10:25] VITALS: BP 122/74; PULSE 88; RESP 17; TEMP 37.1; O2SAT 97
[2024-12-18 10:35] VITALS: BP 119/83; PULSE 81; RESP 17; O2SAT 97
[2024-12-18 10:50] VITALS: BP 108/74; PULSE 79; RESP 17; O2SAT 97
[2024-12-18 10:59] VITALS: BP 121/86; PULSE 74; RESP 19; TEMP 36.5; O2SAT 97
== END 2024-12-18 11:43 | disposition home or self-care (01) ==
PROVIDERS: PCP Registered Nurse; Visit Provider Internal Medicine Gastroenterology
PROC: (CPT 45385; principal; 2024-12-18 09:20)
DX: Z12.11 Encounter for screening for malignant neoplasm of colon (principal); D12.3 Benign neoplasm of transverse colon; D12.5 Benign neoplasm of sigmoid colon; K57.30 Diverticulosis of large intestine without perforation or abscess without bleeding; K64.8 Other hemorrhoids; K56.699 Other intestinal obstruction unspecified as to partial versus complete obstruction; Z80.0 Family history of malignant neoplasm of digestive organs; K29.60 Other gastritis without bleeding; K21.9 Gastro-esophageal reflux disease without esophagitis; I10 Essential (primary) hypertension; J45.909 Unspecified asthma, uncomplicated; E55.9 Vitamin D deficiency, unspecified; K76.0 Fatty (change of) liver, not elsewhere classified; E66.01 Morbid (severe) obesity due to excess calories; Z68.42 Body mass index [BMI] 45.0-49.9, adult; G47.33 Obstructive sleep apnea (adult) (pediatric); Z99.89 Dependence on other enabling machines and devices; Z87.891 Personal history of nicotine dependence
CPT/HCPCS: 45385; 45380; 43239; 87081; 87205; 88305; 88342; J2003; J2704

== ENCOUNTER → 2024-12-18 07:34 | Outpatient (BNV) | payer MEDICAID, SELFPAY | PROVIDERS: PCP Registered Nurse; Visit Provider Internal Medicine Gastroenterology | DX: Z12.11 Encounter for screening for malignant neoplasm of colon (principal); D12.3 Benign neoplasm of transverse colon; D12.5 Benign neoplasm of sigmoid colon; K57.90 Diverticulosis of intestine, part unspecified, without perforation or abscess without bleeding; K64.8 Other hemorrhoids; K21.9 Gastro-esophageal reflux disease without esophagitis; K29.70 Gastritis, unspecified, without bleeding | CPT/HCPCS: 43239; 45380; 45385 ==

== ENCOUNTER 2025-01-01 16:16 | Outpatient (AMB) | payer MEDICAID, SELFPAY ==
[2025-01-01 16:24] VITALS: BP 126/78; PULSE 88; O2SAT 94; BMI 48.7
--- NOTE | 2025-01-01 16:24 | A.OFFVIS_ITS ---
Vital Signs 01/01/25 16:24 Height 5 ft 3 in Weight 275 lb BMI 48.7 BP 126/78 Blood Pressure Location Rt brachial Position Sitting Pulse 88 Pulse Source Pulse Oximeter Pulse Oximetry (%) 94 Oxygen Delivery Method Room Air Intake Visit Reasons: S/P Double; Dr. Go Intake Note: ESTABLISHED PATIENT for s/p duo Chief Complaint; C.O constipation persistence, gas and bloating. Pt denies any additional sx or concerns. Pt has been treating with an old Rx of linzess and tums OTC which has been effective however; pt Rx for Linzess is and pt would like to get refill if possible. 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 Go: Details: LAST VISIT: GERD (gastroesophageal reflux disease) Screen for colon cancer Plan Patient will avoid dietary triggers and late night snacking staying upright for minimum 3 hours after meals discussed with patient. He is not on any PPI or H2 blockers. Will send him for upper endoscopy. What to expect before during and after procedure discussed with patient. Stressed the importance of clear liquid diet and good bowel prep day before procedure. Patient denies any issues with anesthesia in the past. History of sleep apnea. Not on any anticoagulation medication. Denies any cardiac or respiratory symptoms. I will see patient after the procedure, sooner on as needed basis. He is agreeable to this plan and verbalizes understanding of instructions. He was given the opportunity to ask questions and all questions answered. ? Thank you for allowing me to participate in his care Medications New bisacodyl (Dulcolax (bisacodyl)) take 4 tabs at noon the day before your colonoscopy 20 mg (4 x 5 mg) PO ONCE 1 day 4 tabs 0RF Z12.11 polyethylene glycol 3350 (Miralax) As directed by gastroenterology department at [facility] 238 grams PO ONCE 238 grams 0RF Z12.11 UPPER ENDOSCOPY AND COLONOSCOPY Upper endoscopy Findings: Larynx: Normal Esophagus: GE junction at 40 cms. No esophagitis or Mcginnis's. Stomach: Moderate diffuse gastric erythema with a few superficial chronic appearing erosions in the antum. Biopsies were obtained from the gastric body and antrum. Antral biopsies were sent for H Pylori culture and sensitivity Grade 2 flap valve on retroflexed examination of the cardia. Duodenum: Normal bulb and descending duodenum Intervention: Biopsies as noted above Colonoscopy she Findings: Terminal Ileum: Not evaluated Cecum: Normal Ascending Colon: Normal Transverse Colon: A 6-7 mm sessile polyp - removed with a cold snare Descending Colon: Moderate diverticulosis Sigmoid Colon: An 8-9 mm sessile polyp - removed with a hot snare. A 3-4 mm sessile polyp adjacent to a diverticulum - removed with a cold biopsy. Severe diverticulosis with luminal narrowing Rectum: Normal Ano-rectum: Moderate internal hemorrhoids Colon preparation: Good after copious irrigation. [place] Bowel Preparation Scale Right colon; 2 Transverse colon: 2 Left colon; 2 (0 = Unprepared colon segment with mucosa not seen due to solid stool that cannot be cleared. 1 = Portion of mucosa of the colon segment seen, but other areas of the colon segment not well seen due to staining, residual stool and/or opaque liquid. 2 = Minor amount of residual staining, small fragments of stool and/or opaque liquid, but mucosa of colon segment seen well. 3 = Entire mucosa of colon segment seen well with no residual staining, small fragments of stool or opaque liquid) Impression and Post Procedure Diagnosis: Endoscopy Findings: ESOPHAGUS: Normal STOMACH: Moderate diffuse gastric erythema with a few superficial chronic appearing erosions in the antum. Biopsies were obtained from the gastric body and antrum. Antral biopsies were sent for H Pylori culture and sensitivity DUODENUM: Normal Colonoscopy Findings: Three small polyps were removed Moderate to severe diverticulosis seen in the left colon Moderate hemorrhoids on retroflexed exam. Plan: Repeat Colonoscopy in 5 years if polyps are adenomatous and due to family history of colon cancer A summary of above findings and relevant handouts were given to the patient. On GI clinic FU, Pt can be started on Pepcid or once daily PPI for gastritis if he is having any upper GI symptoms BIOPSIES SHOWED: A. Gastric antrum, biopsy: Gastric antral mucosa with minimal chronic inactive gastritis; negative for H.pylori, intestinal metaplasia and dysplasia. B. Gastric body, biopsy: Gastric body mucosa with congestion and minimal chronic inactive gastritis; negative for H. pylori, intestinal metaplasia and dysplasia. C. Colon, transverse, polyp: Tubular adenoma, completely excised; negative for high-grade dysplasia and carcinoma. D. Colon, sigmoid polyps: Tubular adenoma (1 piece), completely excised; negative for high-grade dysplasia and carcinoma, and minute polypoid fragment of colonic mucosa with features suggesting inflammatory polyp. TODAY'S VISIT Patient is here today for follow-up and to discuss upper endoscopy in colonoscopy results. Patient denies any ill effects from the prep, the procedure itself. Patient reports that he has been feeling fairly well. Denies melena, hematochezia. He continues to be constipated he used to take Linzess with good effect. Currently he ran out and is not taking anything except occasionally medication that his partner is using. Patient does not remember the name. Patient reports postprandial abdominal bloating. Feeling gassy occasional epigastric discomfort with occasional dyspepsia without dysphagia or odynophagia. Patient reports acid reflux as well. Patient reports to have good appetite. 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 Does not exercise daily. PENDING SALE TO [facility] Medical History (Updated 01/01/25 @ 19:53 by Chelsey iRvera [facility]) Diverticulosis History of Helicobacter pylori infection Obstructive sleep apnea Vitamin D deficiency Personal history of nicotine dependence Morbid obesity Fatty liver Asthma Hypertension Surgical History History of colonoscopy Family History Father Prostate cancer Social History Alcohol intake: never Patient Tobacco Use Status: Former Tobacco user Years Smoked: (onset 17yo, 1/2-1ppd x 33yrs, 24pyh - quit 2015) Current occupational status: unemployed Review of Systems Const Denies weight gain and Denies weight loss ENT Reports no additional complaints, Denies dysphagia and Denies odynophagia Card Reports no additional complaints Resp Reports no additional complaints GI Denies abdominal pain, Denies belching, Denies melena, Reports bloating, Denies change in bowel habits, Reports constipation, Denies dysphagia, Denies excessive flatus, Reports dyspepsia (occasional), Reports heartburn, Denies diarrhea, Denies loose stools, Denies nausea, Denies odynophagia and Denies vomiting Reports no additional complaints Musc Reports no additional complaints Neuro Reports no additional complaints Psych Reports no additional complaints Endo Reports no additional complaints Physical Exam Vital Signs: Last Vital Signs Pulse 88 01/01/25 16:24 BP 126/78 01/01/25 16:24 Pulse Ox 94 01/01/25 16:24 Oxygen Delivery Method Room Air 01/01/25 16:24 BMI result Body Mass Index 48.7 Const General: healthy appearing and no acute distress Nutritional Appearance: well nourished and obese Orientation/consciousness: patient oriented x3 Resp Effort & Inspection: normal respiratory effort, able to speak in complete sentences, no tracheal deviation and symmetric chest movement Auscultation: clear to auscultation bilaterally Cardio Rate: regular rate GI Inspection: Yes normal to inspection, Yes distended and Yes obesity Palpation (GI): Soft to palpation, not firm, nontender and No hepatosplenomegaly present Auscultation: normal bowel sounds General: Yes no CVA tenderness Back/Spine/Pelvis Back: no CVA tenderness Skin General skin exam: elasticity normal, turgor normal and dry skin Neuro General: patient oriented x3 Psych Appearance: grossly normal Mental Status: mental status grossly normal Assessment & Plan Assessment & Plan (1) GERD (gastroesophageal reflux disease): Code(s): K21.9 - Gastro-esophageal reflux disease without esophagitis Category: Medical Qualifiers: Esophagitis presence: esophagitis presence not specified Qualified Code(s): K21.9 - Gastro-esophageal reflux disease without esophagitis (2) Postprandial epigastric pain: Code(s): R10.13 - Epigastric pain (3) Postprandial abdominal bloating: Code(s): R14.0 - Abdominal distension (gaseous) (4) Constipation: Code(s): K59.00 - Constipation, unspecified Qualifiers: Constipation type: slow transit constipation Qualified Code(s): K59.01 - Slow transit constipation (5) Diverticulosis: Code(s): K57.90 - Diverticulosis of intestine, part unspecified, without perforation or abscess without bleeding Category: Medical Plan Patient will start taking Linzess daily. Increase fluid intake and activity to promote better bowel motility. Patient will start taking omeprazole every morning half an hour before breakfast. Avoid dietary triggers late night snacking. Staying upright for minimal 3 hours after meals discussed with patient. Patient will follow-up in 6 months, sooner on as needed basis. He is agreeable to this plan and verbalizes understanding of instructions. He was given the opportunity to ask questions and all questions answered. Thank you for allowing me to participate in his care Medications: New linaclotide (Linzess) 145 mcg PO DAILY 90 caps 3RF omeprazole 40 mg PO DAILY 90 caps 3RF K21.9 - Gastro-esophageal reflux disease without esophagitis Coding Level of Care Code Est Pt Level 4 (54694) Complex EM visit Add On G2211 Diagnoses Gastroesophageal reflux disease, unspecified whether esophagitis present K21.9 Esophagitis presence: esophagitis presence not specified Postprandial epigastric pain R10.13 Postprandial abdominal bloating R14.0 Slow transit constipation K59.01 Constipation type: slow transit constipation Diverticulosis K57.90 Time Spent (min) 35 Comment 25 minute spent with patient and additional 10 minutes spent reviewing his records
== END 2025-01-01 18:04 ==
LOC: HO.HGI 16:17
PROVIDERS: PCP Registered Nurse; Visit Provider Nurse Practitioner Family
DX: K21.9 Gastro-esophageal reflux disease without esophagitis (principal); R10.13 Epigastric pain; R14.0 Abdominal distension (gaseous); K59.01 Slow transit constipation; K57.90 Diverticulosis of intestine, part unspecified, without perforation or abscess without bleeding
CPT/HCPCS: 99214

== ENCOUNTER → 2025-01-01 16:16 | Outpatient (BNVA) | payer MEDICAID, SELFPAY | PROVIDERS: PCP Registered Nurse; Visit Provider Nurse Practitioner Family | DX: K21.9 Gastro-esophageal reflux disease without esophagitis (principal); K59.01 Slow transit constipation; K57.90 Diverticulosis of intestine, part unspecified, without perforation or abscess without bleeding; R10.13 Epigastric pain; R14.0 Abdominal distension (gaseous) | CPT/HCPCS: 99212 ==

== ENCOUNTER 2025-07-09 14:02 | Outpatient (AMB) | payer MEDICAID, SELFPAY ==
--- NOTE | 2025-07-09 14:25 | MHC.OFFVIS ---
Intake Visit Reasons: Inj-B/L knee pain OA f/u last inj 05/29/24 Intake Note: Jeremy is a 59 year old male who presents today for a repeat injection for his bilateral knees, last injection 05/29/24. Patient reports his last injections gave him relief for 3 months. Allergies No Known Allergies (No Known Allergies*) Allergy (Verified 07/09/25 14:26) HPI HPI Inj-B/L knee pain OA f/u last inj 05/29/24: Details: Mr. Familia Cardozo is a 59-year-old male who presents to the office today for chronic bilateral knee pain due to osteoarthritis. Last cortisone injection was 05/29/24 which gave him good relief and he is looking to repeat injections today. [facility] Medical History (Updated 01/01/25 @ 19:53 by Chelsey Rivera, [facility]) Diverticulosis History of Helicobacter pylori infection Obstructive sleep apnea Vitamin D deficiency Personal history of nicotine dependence Morbid obesity Fatty liver Asthma Hypertension Surgical History History of colonoscopy Family History Father Prostate cancer Social History Alcohol intake: never Patient Tobacco Use Status: Former Tobacco user Years Smoked: (onset 17yo, 1/2-1ppd x 33yrs, 24pyh - quit 2015) Current occupational status: unemployed Review of Systems Const All systems reviewed & are unremarkable except as noted in HPI and below Physical Exam Const General: cooperative, healthy appearing and no acute distress Resp Effort & Inspection: normal respiratory effort and able to speak in complete sentences Extrem Other: Bilateral knees: Normal to inspection. No ecchymosis, erythema, or joint effusion. No tenderness to palpation along the medial or lateral joint lines. Full knee extension and flexion. Crepitus felt with ROM. NVI. Psych Appearance: grossly normal Mental Status: mental status grossly normal Attitude: cooperative Office Procedures AMB Joint Injection/Aspiration Joint Injection/Aspiration Primary Site: right knee Secondary Site: left knee Prep: site was prepped using aseptic technique, ethochloride spray was applied and injection warnings given Injected: 40 mg of, with 3 mL of, 1% plain lidocaine, 0.25% bupivacaine, in the joint and decadron Approach Used: anterolateral Procedure: The patient tolerated the procedure well, but had some pain with the injection and there was some relief with the local anesthesia Coding 36858 - Bilateral Large Joint Procedure code (CPT) selection complete Assessment & Plan Assessment & Plan (1) Osteoarthritis of both knees: Code(s): M17.0 - Bilateral primary osteoarthritis of knee Category: Medical Plan The patient was offered a cortisone injection in bilateral knees. The patient was explained the risks, benefits, and alternatives to receiving this injection. After receiving consent for the injection, the patient had the procedure done while in the office today. The patient tolerated the procedure well with no complications. Follow up will be PRN, sooner if needed. Coding Level of Care Code Est Pt Level 3 (67284) Diagnoses Osteoarthritis of both knees M17.0 CPT Codes Coding - 50629 - Bilateral Large Joint: 27412 - Bilateral Large Joint ([id number])
--- OUTSIDE RECORDS SUMMARY | 2025-07-09 14:52 | XMS_ITS | Encounter Summary ---
Author Organization [employer] Address [address] [facility] [address] [place] [address] Care Team Providers Care Epic Prelude Analyst Name Role Phone Destini Ferguson CARMEN Primary Care Provider [phone] Encounter Details Date Type Department Care Team ([facility] st Contact Info) Description 07/26/2023 Abstract [facility] MEDICINE [address] [place], [place] [id number] Rashida Virk Social History Tobacco Use Types [...] with others, in a hotel, in a care home, living outside on the street, on a [...] Care Team (Late st Contact Info) Description 08/11/2025 11:30 AM EST Office Visit [facility] MEDICINE [address] [place], [place] [id number] Destini Ferguson FNP [address] [place] [address] documented as of this encounter Procedures Procedure Name Priority Date/Time Associated Diagnosis Comments COLONOSCOPY Routine 04/11/2018 documented in this encounter Results * Hm Colonoscopy (04/11/2018) Colonoscopy Normal Normal Narrative SullyRashida manzano - 04/11/2018 Repeat in 10 years Historical Provider HEALTH MAINTENANCE Final Result documented in this encounter Visit Diagnoses Not on filedocumented in this encounter Additional Health Concerns Assessment Noted Time PHQ-9 Depression Total Score: 18 023 10:59 AM EDT documented as of this encounter Care Teams Epic Prelude Analyst Relationship Specialty Start Date End Date Destini Ferguson FNP [address] [place] [address] PCP - General Family Medicine 12/20/22 documented as of this encounter
--- OUTSIDE RECORDS SUMMARY | 2025-07-09 14:52 | XMS_ITS | Encounter Summary ---
Author Organization [employer] Address [address] [facility] [address] [place] [address] Care Team Providers Care Production Control Expediter Name Role Phone Destini Ferguson Primary Care Provider [phone] Reason for Visit * Reason Onset Date Comments Referral 04/02/2024 Encounter Details Date Type Department Care Team ([facility] st Contact Info) Description 04/02/2024 Telephone [facility] MEDICINE [address] [place] [address] Destini Ferguson FNP [address] [place] [address] Referral Social History Tobacco Use Types Packs/Day [...] with others, in a hotel, in a detention, living outside on the street, on a [...] status for a referral for Cortizone injections 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 documented in this encounter Plan of Treatment Upcoming Encounters Date Type Department Care Team (Late st Contact Info) Description 08/11/2025 11:30 AM EST Office Visit [facility] MEDICINE [address] [place] [address] Destini Ferguson FNP [address] [place] [address] documented as of this encounter Visit Diagnoses Not on filedocumented in this encounter Additional Health Concerns Assessment Noted Time PHQ-9 Depression Total Score: 18 023 10:59 AM EDT documented as of this encounter Care Teams Production Control Expediter Relationship Specialty Start Date End Date Destini Ferguson FNP [address] [place] [address] PCP - General Family Medicine 12/20/22 documented as of this encounter
--- OUTSIDE RECORDS SUMMARY | 2025-07-09 14:52 | XMS_ITS | Clinical Summary ---
Author Organization [employer] Address [address] [place] [address] 7 [place] [address] Care Team Providers Care Biomedical Engineering Aide Name Role Phone Valenteivan Destini MORALES Primary Care Provider [phone] Allergies No known active allergies Medications fluticasone (Flonase) 50 MCG/ACT nasal spray INSTILL 1-2 SPRAYS INTO EACH NOSTRIL ONCE PER DAY. SHAKE GENTLY. BEFORE FIRST USE, PRIME PUMP. AFTER USE, CLEAN TIP AND REPLACE CAP. 48 mL 3 4 Active albuterol (2.5 MG/3ML) 0.083% nebulizer solutionIndicat ions:Chronic obstructive pulmonary disease, unspecified COPD type (CMS/HCC) (HCC) Take 3 mL by nebulization Every 4-6 hours as needed for wheezing or shortness of breath. 75 mL 2 5 Active albuterol 108 (90 Base) MCG/ACT inhalerIndicati ons:Chronic obstructive pulmonary disease, unspecified COPD type (CMS/HCC) (HCC) Inhale 2 puffs every 4 (four) hours if needed for shortness of breath or wheezing. 36 g 3 5 Active budesonide-form oterol (Symbicort) 80-4.5 MCG/ACT inhalerIndicati ons:Chronic obstructive pulmonary disease, unspecified COPD type (CMS/HCC) (HCC) Inhale 2 puffs in the morning and at bedtime. Rinse mouth with water after use to reduce aftertaste and incidence of candidiasis. Do not swallow. 1 each 11 5 09/30/19 26 Active cholecalciferol (Vitamin D-3) 25 MCG (1000 UT) tabletIndicatio ns:Vitamin D Deficiency Take 1 tablet (25 mcg) by mouth Once per day. 90 tablet 3 5 12/24/19 26 Active omeprazole (PriLOSEC) [address] jes ANDERSON 1 C PSULA POR V A ORAL TODOS LOS D 5 Active Active Problems Problem Noted Date Diagnosed [...] -Pack years: 30 -[place] - [facility] [place]23 Lung RADS 2 Assessment & Plan (06/11/2023 9:50 AM EDT): -Started smoking at 17 y.o -Currently smoking 1ppd -Pack years: 30 -L[place] Cancer Scre[place] [facility] [place]23 Lung RADS 2 -Discussed available smoking cessation resources at [facility] Assessment & Plan (03/24/2023 11:28 AM EDT): -Started smoking at 17 y.o -Currently smoking 1ppd -Pack years: 30 -Lung Cancer Screening form - [facility] [place] [place] - completed 01/29/23 during visit -Discussed available smoking cessation resources at [facility] -Upcoming appt 04/19/23 for LDCT Assessment & Plan (02/04/2023 7:49 PM EDT): -Started smoking at 17 y.o -Currently smoking 1ppd -Pack years: 30 -Lung Cancer Screening form - [facility] [place] [place] - completed 01/29/23 during visit -Discussed available smoking cessation resources at [facility] Healthcare maintenance 01/28/2023 Overview (12/23/2024): Colonoscopy: December 2024, adenoma. Repeat 5 years. Positive family history of colorectal cancer -father. Prostate CA screening: PSA WNL May 2024 Optometry: [facility], referral placed January 2023 Lung CA screening: LDCT Lung RADS 1 in November 2024 Assessment & Plan (09/30/2024 5:28 PM EST): - Encouraged to call [facility] [place] to schedule LDCT. [...] CA screening: PSA WNL February 2023 -Optometry: [facility], referral placed January 2023 [...] -Prostate CA screening: PSA ordered 01/29/23 -Optometry: [facility], referral placed January 2023 -Lung CA screening: referral placed in January 2023 to [facility] Assessment & Plan (02/04/2023 7:50 PM EDT): -Colonoscopy: last April 2018 that showed no polyps. Positive family history of colorectal cancer -father. Will most likely need to have a colonoscopy again in 2022 or sooner if he has any Symptoms. -Prostate CA screening: PSA ordered 01/29/23 -Optometry: [facility] Eye [facility], referral placed January 2023 Acute bilateral low [...] knees 08/24/2022 Overview (09/30/2024): - Following with [facility] [place] - Received bilateral steroid injection in [...] SE Steatosis of liver 04/07/2021 Vitamin D insufficiency 05/22/2018 Overview (12/23/2024): Lab Results Component Value Date [id number] 22.2 (L) 12/10/2024 -Vit D 1000 units daily Obstructive sleep apnea syndrome 11/02/2015 Assessment & Plan (09/30/2024 5:27 PM EST): No longer with CPAP Referral for hospital based sleep study sent 09/30/24 Assessment & Plan (01/28/2023 10:17 PM EDT): Continues with CPAP Allergic rhinitis 07/13/2015 Chronic obstructive lung disease 07/13/2015 Assessment & Plan (09/30/2024 5:30 PM EST): Wheezing auscultated on exam, has been w/o inhalers Continues with albuterol PRN Start symbicort 2 puffs BID. Rinse mouth after use Congratulated on continued smoking cessation Assessment & Plan (01/28/2023 10:18 PM EDT): Overlap with asthma Continues with albuterol PRN Hypercholesterolemia 07/13/2015 Overview (12/23/2024): Lab Results Component Value Date CHOL 195 12/10/2024 CHOL 201 (H) 05/30/2024 CHOL 193 06/18/2023 TRIG 187 (H) 12/10/2024 TRIG 71 05/30/2024 TRIG 119 06/18/2023 HDL 41 12/10/2024 HDL 50 05/30/2024 HDL 47 06/18/2023 LDLCHOLCAL 117 (H) 12/10/2024 LDLCHOLCAL 137 (H) 05/30/2024 LDLCHOLCAL 123 (H) 06/18/2023 Statin: Pt self discontinued Rosuvastatin due to perceived [...] dietary changes Severe obesity (BMI >= 40) ([facility]) 07/13/2015 Assessment & Plan (06/11/2023 9:55 AM EDT): 279 lbs 01/29/23 277 lbs 02/27/23 270 lbs 03/22/23 264 lbs 06/10/23 Weight loss of approx 15 lbs over the past 5 months Encouraged to continue with sustainable healthy lifestyle interventions Assessment & Plan (02/04/2023 7:02 PM EDT): Discussed healthy lifestyle interventions Referral to [facility] Nutrition as requested Discussion of pharmacotherapy options at subsequent appt following review of lab results - consider GLP-1 if covered Encounters Date Type Department Care Team Description 07/07/2025 Telephone [facility] MED & PEDS [address] [place] [address] Destini Ferguson FNP Appointment Request 06/21/2025 Telephone [facility] [address] [place] [address] Destini Ferguson FNP from Last 3 Months Immunizations Immunization Administration Dates Next Due Influenza injectable quadriv [...] Answer Date Recorded Patient Health Questionnaire-9 Score 9 12/23/2024 Patient Health Questionnaire-9 Score 9 12/23/2024 Last PHQ-9: Questionnaire Data Not on file 0 12/23/2024 Housing Stability Answer Date Recorded What is your housing situation today? I have feliberto subramanian 12/23/[address] you li ve. Do you have problems with any of the following? None of the above 12/23/2024 Food Insecurity Answer Date Recorded Within the [...] Answer Date Recorded Patient Health Questionnaire-2 Score 2 12/23/2024 Internet Access Answer Date Recorded Internet Access Q1 Yes 12/23/2024 Internet Access Q2 I cannot afford it 12/23/2024 Sex and Gender Information Value Date Recorded Sex Assigned at Male 07/09/2022 10:15 AM EDT Legal Sex Male 10:15 AM EDT Gender Identity Male 07/09/2022 10:15 AM EDT Sexual Orientation Straight 07/09/2022 10 :15 AM EDT Last Filed Vital Signs Vital Sign Reading Time Taken Comments Blood Pressure 122/74 03/18/2025 10:36 AM EDT Pulse 90 03/18/2025 10:36 AM EDT Temperature 36.6 C (97.9 F) 02/15/2025 10:00 AM EDT Respiratory Rate 16 03/18/2025 10:36 AM EDT Oxygen Saturation 96% 02/15/2025 10:00 AM EDT Inhaled Oxygen Concentration - - Weight 126 kg (278 lb 9.6 oz) 03/18/2025 10:36 A M EDT Height 157.5 cm (5' 2 ) 03/18/2025 10:36 AM EDT Body Mass Index 50.96 03/18/2025 10:36 AM EDT Plan of Treatment Upcoming Encounters Date Type Department Care Team (Late st Contact Info) Description 08/11/2025 11:30 AM EST Office Visit [facility] MEDICINE [address] [place] [address] Destini Ferguson, CARMEN [address] [place], [place] [phone] Health Maintenance Due Date Last Done Comments CT Colonography 1967 FIT DNA/Cologuard 1967 FIT 1967 FOBT 1965 Sigmoidoscopy 1967 Alcohol/Substance Use Screening 1979 Hepatitis A Vaccines (1 of 2 - Risk 2-dose series) 12/26/1986 Hepatitis B Vaccines (1 of 3 - 19+ 3-dose series) 12/26/1986 Pneumococcal Vaccine: 50+ Years (1 of 2 - PCV) 12/26/1986 Zoster Vaccines (1 of 2) 12/26/2017 DTaP/Tdap/Td Vaccines (2 - Td or Tdap) 09/21/2024 09/21/2014 COVID-19 Vaccine ( - season) 2025 Influenza Vaccine (#1) 2025 07/13/2015, 2014 Depression Monitoring 06/24/2025 12/23/2024, 025 Lung Cancer Screening 11/28/2025 11/28/2024 Disability Screening 12/23/2025 12/23/2024 SDOH Screening 12/23/2025 12/23/2024 Tobacco Screening 04/07/2026 04/07/2025 Colonoscopy 04/11/2028 04/11/2018 Colorectal Cancer Screening 04/11/2028 Lipid Panel 12/10/2029 12/10/2024, 05/11, 06/18/2023, Additional history exists RSV Patients and Patients [...] patient's age to complete this topic Meningococcal B Vaccine Aged Out No l onger eligible based on patient's age to complete [...] Procedure Name Priority Date/Time Associated Diagnosis Comments LIPID PANEL, STANDARD Routine 12/10/2024 6:22 AM EDT Healthcare maintenance LDCT LUNG SCREENING Routine 11/28/2024 8 :37 AM EDT HEPATITIS C VIRAL RNA, QUANTITATIVE, REAL-TIME PCR Routine 05/30/2024 9:11 AM EDT Healthcare maintenance HIV 1/2 ANTIGEN/ANTIBODY, FOURTH GENERATION W/RFL Routine 05/30/2024 9:11 AM EDT Healthcare maintenance HM COLONOSCOPY Routine 04/11/2018 from Last 3 Months or Most Recently Relevant to Health Maintenance Results * (ABNORMAL) Lipid Panel, Standard (12/10/2024 6:22 AM EDT) Triglycerides 187(H) <150 mg/dL [facility] Comment:Desirable Triglyceri de: less than 150 mg/dLBorderline High Triglyceride 150-199 mg/dLHigh Triglyceride: 200-499 mg/dLVery High Triglyceride: greater than or equal to 5OO mg/dL Cholesterol 195 <200 mg/dL [facility] Comment:Desirable Cholestero l: less than 200 mg/dLBorderline High Cholesterol: 200-239 mg/dLHigh Cholesterol: greater than 239 mg/dL LDL Cholesterol Calculated 117(H) <100 mg/dL [facility] Comment:Desirable LDL: less than 100 mg/dLNear Optimal/Above Optimal LDL: 110- 129 mg/dLBorderline High LDL: 130-159 mg/dLHigh LDL: 160-189 mg/dLVery High LDL: greater than or equal to 190 mg/dL HDL Cholesterol 41 >40 mg/dL [facility] Comment:Desirable HDL: great er than 40 mg/dL Note: This HDL assay may give artificially low results in patients with liver disease. Blood Venous blood specimen / Unknown 12/10/2024 6:22 AM EDT 12/10/2024 6:22 AM EDT Destini Ferguson PRICING DIRECTOR LAB BLOOD ORDERABLES Final Res ult [facility] [address] [place] [phone] * CT Lung Screening Low dose (11/28/2024 8:37 AM EDT) Anatomical Region Laterality Modality Lung Computed Tomogra phy 11/28/2024 8:37 AM EDT Narrative 11/28/2024 8:38 AM EDT [place] [address] [address] Scan Report Signed Patient: Jeremy Rodarte MR#: [id number] : 1965 Acct:[id number] Age/Sex: 58 / M ADM Date: 11/26/24 Loc: HO.CT Attending Dr: Valeria Kulkarni PA-C Ordering Physician: Valeria Kulkarni PA-C Date of Service: 11/26/24 Procedure(s): CT lung screening Accession Number(s): [id number] cc: Valeria Kulkarni PA-C; Destini Ferguson Report Number: [id number]: Total DLP = 108.00 mGy-cm CLINICAL HISTORY: [...] signed by Marc Hamilton MD in OV> 11/28/24837 DD/ 6 TD/TT: 11/28/24836 Alarm Adjuster: Procedure Note Donotuseinterpreter, Image - 11/28/[address] [place] [address] [address] Scan Report Signed Patient: Jeremy Rodarte AMR#: [id number] : 1965Acct:[id number] Age/Sex: 58 / MADM Date: 11/26/24 Loc: HO.CT Attending Dr: Valeria Kulkarni PA-C Ordering Physician: Valeria Kulkarni PA-C Date of Service: 11/26/24 Procedure(s): CT lung screening Accession Number(s): [id number] cc: Valeria Kulkarni PA-C; Destini Ferguson [facility] Report Number: [id number]: Total DLP = 108.00 mGy-cm CLINICAL HISTORY: [...] signed by Marc Hamilton MD in OV> 11/28/2438 DD/ 6 TD/TT: 11/28/24836 Alarm Adjuster: [facility] External Provider IMG CT PROCEDURES Edited Result - Final * Hepatitis C Viral RNA, Quantitative, Real-Time PCR (05/30/2024 9:11 AM EDT) Hepatitis C Viral Load <15 NOT DETECTED NOT DETECTED IU/mL [facility] HCV Log PCR <1.18 NOT DETECTED NOT DETECTED Log IU/mL [facility] Comment:For additional infor farrukh, please refer tohttp://education.[employer]/faq/RMF07h1(This link is being provided for informational/educational purposes only.)THIS TEST WAS PERFORMED AT:[employer] [place] [id number] CHUN MD Blood 05/30/2024 9:11 AM EDT 05/30/2024 9:11 AM EDT Destini Ferguson PRICING DIRECTOR LAB BLOOD ORDERABLES Final Res ult [facility] [address] [place] [address] [phone] * HIV-1/2 Antigen and Antibodies, Fourth Generation, with Reflexes (05/30/2024 9:11 AM EDT) HIV AB/AG Nonreactive Nonreactive [facility] Comment:HIV-1 p24 Ag and/or HIV-1/HIV-2 Ab not detected.A test result that is nonreactive does not exclude thepossibility of exposure to or infection with HIV-1 and/orHIV-2. Nonreactive results in this assay for individualswith prior exposure to HIV-1 and/or HIV-2 may be due toantigen and antibody levels that are below the limit ofdetection of this assay.The [employer] HIV Ag/Ab Combo assay result andsupplemental assay results should be interpreted inconjunction with the patient's clinical presentation,history and other laboratory results. If the results areinconsistent with clinical evidence, additional testing issuggested to confirm the result. Blood Venous blood specimen / Unknown 05/30/2024 9:11 AM EDT 05/30/2024 9:11 AM EDT Destini Ferguson PRICING DIRECTOR LAB BLOOD ORDERABLES Final Res ult [facility] [address] [place] [address] [phone] * Colonoscopy (04/11/2018) Colonoscopy Normal Normal Narrative Sully Rashida - 04/11/2018 Repeat in 10 years Historical Provider HEALTH MAINTENANCE Final Result from Last 3 Months or Most Recently Relevant to Health Maintenance Insurance [employer] PARTIAL Care Teams Biomedical Engineering Aide Relationship Specialty Start Date End Date Destini Ferguson FNP [address] [place] [address] PCP - General Family Medicine 12/20/22
--- OUTSIDE RECORDS SUMMARY | 2025-07-09 14:52 | XMS_ITS | Encounter Summary ---
Author Organization [employer] Address [address] [facility] 7 [place] [address] Care Team Providers Care Machine Hose Cutter Name Role Phone Destini Ferguson Primary Care Provider [phone] Reason for Visit * Reason Onset Date Comments Appointment Request 07/07/2025 Encounter Details Date Type Department Care Team ([facility] Contact Info) Description 07/07/2025 Telephone [facility] MED & PEDS [address] [place], [place] [phone] Destini Ferguson FNP [address] [place] [address] Appointment Request Social History Tobacco Use Types Packs/Day Years [...] encounter Miscellaneous Notes * Telephone Encounter - Hudson Wallace - 07/07/2025 10:22 AM EDT Tc from pt requesting to schedule an apt with him and his . Ex. Pt at 9:30... at 9:45 Contact pt at [phone] documented in this encounter Plan of Treatment Upcoming Encounters Date Type Department Care Team ([facility] st Contact Info) Description 08/11/2025 11:30 AM EST Office Visit [facility] MEDICINE [address] [place] [address] Destini Ferguson FNP [address] [place] [phone] documented as of this encounter Visit Diagnoses Not on filedocumented in this encounter Additional Health Concerns Assessment Noted Time PHQ-9 Depression Total Score: 9 12/24/19 25 4:27 PM EDT documented as of this encounter Care Teams Machine Hose Cutter Relationship Specialty Start Date End Date Destini Ferguson FNP [address] [place] [address] PCP - General Family Medicine 12/20/22 documented as of this encounter
== END 2025-07-09 15:08 | disposition home or self-care (01) ==
LOC: HO.HOS 14:03
PROVIDERS: PCP Registered Nurse; Visit Provider Physician Assistant
DX: M17.0 Bilateral primary osteoarthritis of knee (principal)
CPT/HCPCS: 20610; 99213

== ENCOUNTER → 2025-07-09 14:02 | Outpatient (BNVA) | payer MEDICAID, SELFPAY | PROVIDERS: PCP Registered Nurse; Visit Provider Physician Assistant | DX: M17.0 Bilateral primary osteoarthritis of knee (principal) | CPT/HCPCS: 20610; 99212; J0665; J1100; J2003 ==